=== PATIENT | female | born 1950 | race Caucasian/White ===

== ENCOUNTER → 2017-07-25 | Day surgery (SDC) | payer MEDICARE, BC ==
[2017-07-22 13:35] LABS: BASOPHILS # (AUTO) 0.1 (0.0-0.1); BASOPHILS % 0.5 % (0.0-1.0); EOSINOPHILS # (AUTO) 0.3 (0.0-0.4); EOSINOPHILS % 2.8 % (0.0-6.0); HEMATOCRIT 48.3 % (34.2-44.1); HEMOGLOBIN 15.6 g/dL (12.0-16.0); LYMPHOCYTES # (AUTO) 2.6 (1.0-3.2); LYMPHOCYTES % 27.9 % (18.0-39.1); MEAN CORPUSCULAR HEMOGLOBIN 31.5 pg (28-32); MEAN CORPUSCULAR HGB CONC 32.3 g/dL (31-35); MEAN CORPUSCULAR VOLUME 97.6 fL (81-99); MONOCYTES # (AUTO) 0.6 (0.2-0.8); MONOCYTES % 6.2 % (4.4-11.3); NEUTROPHILS # (AUTO) 5.8 (2.1-6.9); NEUTROPHILS % 62.5 % (38.7-80.0); PLATELET COUNT 193 x10e3/uL (140-360); RED BLOOD COUNT 4.95 x10e6/uL (3.6-5.1); RED CELL DISTRIBUTION WIDTH 13.2 % (11.7-14.4)
[~2017-07-25] MED LIST: ALBUTEROL0.63 MG/3 NEB; AMLODIPINE BES2.5 MG PO; ASPIRIN81 MG PO; BUTALB-ACETAMI1 EACH PO; CLONAZEPAM0.5 MG PO; DIAZEPAM5 MG PO; FENTANYL CITRATE/PF 100MCG/2 ML INJ ONE; FIORICET1 EA PO; GABAPENTIN300 MG PO; GLIPIZIDE5 MG PO; GLUCAGON FOR INJ 1 MG VIAL ONE; GLUCOPHAGE1000 MG PO; HYDROCODONE-AP1 EAC1 PO; HYOSCYAMINE SULFATE 0.5 MG/ML AMP ONE; HYOSCYAMINE0.125 MG PO; LEXAPRO10 MG PO; LIDOCAINE HCL 2% LOCAL INJ 5 ML SDV VIAL INJ ONE; LIPITOR20 MG PO; LORAZEPAM0.5 GM PO; LORAZEPAM0.5 MG PO; LOSARTAN POTAS100 MG PO; LYRICA50 MG PO; MELOXICAM7.5 MG PO; METFORMIN HCL1000 MG PO; METOPROLOL TART25 MG PO; MIDAZOLAM HCL 2 MG/2 ML VIAL ONE; NAPROSYN500 MG PO; NEXIUM20 MG PO; NORCO 5-325 TA1 EACH PO; ONDANSETRON HCL INJ 2 MG/ML VIAL ONE; PANTOPRAZOLE SO40 MG PO; PENNSAID 2%; PENNSAID TOP; PLAVIX75 MG PO; PROAIR HFA INH8.5 GM INH; PROPOFOL IV EMULSION 10 MG/ML 50 ML VIAL ONE; SERTRALINE HCL25 MG PO; SIMVASTATIN20 MG PO; SPIRIVA HANDIH18 MCG INH; SPIRIVA18 MCG INH; SYMBICORT 160-4.6 GM IH; SYMBICORT 16010.2 GM; TYLENOL WITH C1 EACH PO; ULTRAM 50MG50 MG PO; ULTRAM50 MG PO; Z.0.JANUVIA100 MG PO; Z.0.NORVASC2.5 MG PO; ZOLOFT25 MG PO; farxiga PO
--- NOTE | 2017-07-26 03:51 | Operative Report ---
DATE OF PROCEDURE: July 25, 2017 REFERRING PHYSICIAN: Dr. Van Toussaint and Dr. Luz Elena Lala. PROCEDURES PERFORMED 1. Esophagogastroduodenoscopy with esophageal dilatation. 2. Colonoscopy with polypectomy. INDICATIONS FOR EGD: Dysphagia. INDICATIONS FOR COLONOSCOPY: Colorectal cancer screening and personal history of colon polyps. MEDICATION: Patient was done under MAC. Please see anesthesiologist's note. PROCEDURE: With the patient in the left lateral decubitus position, the flexible fiberoptic Olympus gastroscope was introduced into the esophagus under direct visualization without any difficulty. The esophagus appeared to be within normal limits. There was a mild stricture noted at the GE junction that was dilated to size 52-Romansh King. The scope was then advanced with ease into the stomach traversing a small hiatal hernia. Mucosa overlying the antrum revealed some patchy areas of ?atrophy and biopsies were obtained to rule out atrophic gastritis. The mucosa overlying the antrum and the body revealed some diffuse erythema and low-grade to moderate edema, and biopsies were obtained and sent to stain for H. pylori. The pylorus was of normal contour and shape. It was intubated with ease. The scope was advanced all the way to the 2nd portion of the duodenum. A prominent fold was encountered in the proximal 2nd portion that was biopsied. There was also approximately a 5 mm polypoid lesion in the duodenal bulb and that was biopsied. The scope was then withdrawn back into the stomach and retroflexed. Mucosa overlying the fundus appeared to be within normal limits. The previously described hiatal hernia was also noted in the retroflexed position. The scope was then straightened out. The stomach was decompressed. The scope was subsequently withdrawn. Patient tolerated the procedure well. IMPRESSION 1. Normal esophagus. 2. Mild stricture at the gastroesophageal junction dilated to a size 52-Romansh King. 3. Small hiatal hernia. 4. Gastritis, type B, biopsied. Biopsy sent to stain for Helicobacter pylori. 5. Rule out atrophic gastritis, antrum, biopsied. 6. Duodenal bulb polypoid lesion approximately 5 mm in size, biopsied. 7. Prominent fold in proximal 2nd portion, biopsied. PLAN: Follow up histology. Continue Protonix 40 mg 1 p.o. q.a.m. a.c. Patient was then turned around. After adequate lubrication of the anal canal, a flexible fiberoptic Olympus colonoscope was inserted into the rectum with ease. It could not be advanced beyond the 20 cm from the anal verge. There was a very sharp angulation noted in the distal sigmoid colon. The scope was then withdrawn. The gastroscope was then inserted into the rectum, and with some gentle pressure we were to negotiate the sharply angulated area. The scope was advanced all the way to the hepatic flexure. Part of the ascending colon was visualized, but the proximal ascending and the cecum could not be visualized due to excessive looping of the scope in the left colon. Diverticular disease was noted pretty much throughout. The scope was then withdrawn slowly, and an approximately 6 mm sessile polyp was snared from the transverse colon. There was some retained stool, but visualization was fair in the part of the colon visualized. The descending colon other than for diverticular disease grossly appeared to be within normal limits. Approximately 6 polyps were snared and 6 polyps were hot biopsied from the sigmoid colon, and approximately 8 polyps were hot biopsied from the rectum. The scope was then retroflexed into the distal rectum and small internal hemorrhoids were noted, none of which was actively bleeding. The scope was then straightened out. The rectosigmoid area, as well as the distal rectal area were decompressed. The scope was subsequently withdrawn. Patient tolerated the procedure well. IMPRESSION 1. Sharply angulated distal sigmoid colon negotiated only with esophagogastroduodenoscopy scope. The scope could not be advanced beyond the hepatic flexure due to excessive looping of the scope proximally. 2. [place] diverticulosis. 3. Transverse colon polyps, snared. 4. Sigmoid colon polyp, times 12, six snared and 6 hot biopsied. 5. Rectal polyps times 8, hot biopsied. 6. Internal hemorrhoids, none actively bleeding. PLAN: Follow up histology. Initiate high-fiber supplement. Patient will need an air contrast barium enema in approximately 1month to visualize the ascending colon and cecum. Also, followup colonoscopy pending pathology and air contrast barium enema report. Job#: [id number] RI cc:DO LUZ ELENA RODRIGUES MD
== END | disposition home or self-care (01) ==
LOC: OR 06:00
PROVIDERS: ATTEND Internal Medicine Gastroenterology
DX: Z12.11 Encounter for screening for malignant neoplasm of colon (principal); D12.8 Benign neoplasm of rectum; K63.5 Polyp of colon; K31.7 Polyp of stomach and duodenum; K29.50 Unspecified chronic gastritis without bleeding; K22.2 Esophageal obstruction; K44.9 Diaphragmatic hernia without obstruction or gangrene; K31.89 Other diseases of stomach and duodenum; K57.30 Diverticulosis of large intestine without perforation or abscess without bleeding; K59.00 Constipation, unspecified; K64.8 Other hemorrhoids; E11.9 Type 2 diabetes mellitus without complications; G62.9 Polyneuropathy, unspecified; J44.9 Chronic obstructive pulmonary disease, unspecified; I10 Essential (primary) hypertension; I25.10 Atherosclerotic heart disease of native coronary artery without angina pectoris; K21.9 Gastro-esophageal reflux disease without esophagitis; G89.29 Other chronic pain; F41.9 Anxiety disorder, unspecified; F17.210 Nicotine dependence, cigarettes, uncomplicated; Z01.810 Encounter for preprocedural cardiovascular examination; Z01.812 Encounter for preprocedural laboratory examination; Z79.02 Long term (current) use of antithrombotics/antiplatelets; Z95.5 Presence of coronary angioplasty implant and graft; Z85.51 Personal history of malignant neoplasm of bladder; Z86.73 Personal history of transient ischemic attack (TIA), and cerebral infarction without residual deficits
CPT/HCPCS: 36415 ×2; 43239; 43450; 45384; 45385; 82948; 84443; 85025; 88305; 88312; 93005; J1610; J1980; J2001; J2250; J2405

== ENCOUNTER → 2017-08-21 | Outpatient (CLI) | payer MEDICARE, BC ==
[~2017-08-21] MED LIST changes: -FENTANYL CITRATE/PF 100MCG/2 ML INJ ONE; -GLUCAGON FOR INJ 1 MG VIAL ONE; -HYOSCYAMINE SULFATE 0.5 MG/ML AMP ONE; -LIDOCAINE HCL 2% LOCAL INJ 5 ML SDV VIAL INJ ONE; -MIDAZOLAM HCL 2 MG/2 ML VIAL ONE; -ONDANSETRON HCL INJ 2 MG/ML VIAL ONE; -PROPOFOL IV EMULSION 10 MG/ML 50 ML VIAL ONE
--- NOTE | 2017-08-21 11:57 | Diagnostic Imaging Report ---
PROCEDURE: X-RAY BARIUM ENEMA WITH AIR CONTRAST COMPARISON: None. INDICATIONS: COLON POLYPS/INCOMPLETE COLONOSCOPY TECHNIQUE: Business Administrator film was obtained. Barium was introduced via a rectal tube in a retrograde fashion until contrast was noted to reach the cecum. Air was then introduced to fully inflate the colon. Multiple spot images as well as overhead and bilateral decubitus images were obtained. FINDINGS: The clinical liaison film demonstrates no acute abnormalities. Two separate focal filling defects are noted in the mid transverse colon. The filling defects persisted on multiple projections throughout the upright and supine positions. The filling defects were not visualized on the overhead images. Otherwise, there is no evidence of obstruction or mass. The appendix is visualized. Numerous diverticuli are present in the descending and sigmoid colon. No extravasation. CONCLUSION: 1. Filling defects in the mid transverse colon are indeterminate. Correlation with colonoscopy results may provide additional information. CT of the abdomen and pelvis with IV and oral contrast may be of clinical benefit. 2. Diverticulosis. Dictated by: Miles Alicea M.D. on 08/21/2017 at 12:06 Electronically approved by: Miles Alicea M.D. on 08/21/2017 at 12:06
== END ==
LOC: DX 07:51
PROVIDERS: ATTEND Internal Medicine Gastroenterology
DX: K63.5 Polyp of colon (principal)
CPT/HCPCS: 74280

== ENCOUNTER 2018-04-27 10:00 | Observation (INO) | payer MEDICARE, BC ==
[~2018-04-27] VITALS: Ht 154.9 cm; Wt 69.6 kg
[2018-04-27] MEDS ORDERED: IPRATROPIUM BROMIDE 0.02% 2.5 ML NEB NEB STA (10:04)
[2018-04-27] MEDS ORDERED: ONDANSETRON HCL INJ 2 MG/ML VIAL IV STA (10:04)
[2018-04-27] MEDS ORDERED: ALBUTEROL SULF 0.083% NEB SOLN 3 ML NEB NEB STA (10:04)
[2018-04-27] MEDS ORDERED: MORPHINE SULFATE INJ 4 MG/ML INJ IV STA (10:04)
[2018-04-27] MEDS ORDERED: METHYLPREDNISOLONE SOD SUCC 125 MG/2ML VIAL IV STA (10:04)
[2018-04-27] MEDS ORDERED: SODIUM CHLORIDE 0.9% 1000ML 1,000 ML IV STA (10:04)
[2018-04-27] MEDS ORDERED: ASPIRIN 81 MG CHEW TAB PO ONE (10:15)
[2018-04-27 10:43] LABS: BASOPHILS # (AUTO) 0.1 (0.0-0.1); BASOPHILS % 0.6 % (0.0-1.0); EOSINOPHILS # (AUTO) 0.2 (0.0-0.4); EOSINOPHILS % 1.9 % (0.0-6.0); HEMATOCRIT 37.7 % (34.2-44.1); HEMOGLOBIN 11.7 g/dL (12.0-16.0); LYMPHOCYTES # (AUTO) 3.5 (1.0-3.2); LYMPHOCYTES % 35.1 % (18.0-39.1); MEAN CORPUSCULAR HEMOGLOBIN 27.2 pg (28-32); MEAN CORPUSCULAR VOLUME 87.7 fL (81-99); MONOCYTES # (AUTO) 0.7 (0.2-0.8); MONOCYTES % 6.9 % (4.4-11.3); NEUTROPHILS # (AUTO) 5.4 (2.1-6.9); NEUTROPHILS % 55.1 % (38.7-80.0); PLATELET COUNT 270 x10e3/uL (140-360); RED CELL DISTRIBUTION WIDTH 15.3 % (11.7-14.4)
[2018-04-27 10:48] LABS: INR 0.84; PROTHROMBIN TIME 12.3 seconds (11.9-14.5)
[2018-04-27 10:49] LABS: PARTIAL THROMBOPLASTIN TIME 26.5 seconds (23.8-35.5)
[2018-04-27 11:04] LABS: ALANINE AMINOTRANSFERASE 27 IU/L (0-55); ALBUMIN 3.7 g/dL (3.5-5.0); ALBUMIN/GLOBULIN RATIO 1.1 (0.8-2.0); ALKALINE PHOSPHATASE 72 IU/L (40-150); ANION GAP 15.2 mmol/L (8-16); BLOOD UREA NITROGEN 8 mg/dL (7-26); BUN/CREATININE RATIO 11 (6-25); CARBON DIOXIDE 25 mmol/L (22-29); CHLORIDE 101 mmol/L (98-107); CREATINE KINASE 107 IU/L (29-168); CREATININE, SERUM 0.75 mg/dL (0.57-1.11); EST GLOMERULAR FILTRATION RATE > 60 ML/MIN (60-); GLUCOSE 218 mg/dL (74-118); LIPASE 27 U/L (8-78); MAGNESIUM 2.3 MG/DL (1.3-2.1); POTASSIUM 4.2 mmol/L (3.5-5.1); SODIUM 137 mmol/L (136-145)
[2018-04-27 11:08] LABS: B-TYPE NATRIURETIC PEPTIDE2 13.2 pg/mL (0-100)
[2018-04-27 11:12] LABS: THYROID STIMULATING HORMONE 2.003 uIU/mL (0.350-4.940)
[2018-04-27 11:30] LABS: BILIRUBIN,URINE NEGATIVE (NEGATIVE); CLARITY,URINE CLEAR (CLEAR); COLOR,URINE YELLOW (YELLOW); KETONES,URINE NEGATIVE (NEGATIVE); LEUKOCYTE ESTERASE ,URINE NEGATIVE (NEGATIVE); NITRITE,URINE NEGATIVE (NEGATIVE); PROTEIN,URINE DIPSTICK NEGATIVE (NEGATIVE); URINE UROBILINOGEN 0.2 mg/dL (0.2 - 1)
[2018-04-27 11:33] LABS: EPITHELIAL CELLS,URINE RARE /LPF; YEAST,URINE MODERATE
[2018-04-27] MEDS ORDERED: SODIUM CHLORIDE 0.9% 50ML 50 ML ONE (13:51)
[2018-04-27] MEDS ORDERED: IOPAMIDOL 370 MG/ML 200 ML INFUS..BTL INJ ONE (13:52)
--- NOTE | 2018-04-27 13:54 | Diagnostic Imaging Report ---
EXAMINATION: CHEST 2 VIEWS INDICATION: Abdominal pain. Chest pain. COMPARISON: November 27, 2014 FINDINGS: TUBES and LINES: None. LUNGS: Lungs are well inflated. Mild chronic appearing changes in the lungs. There is no evidence of pneumonia or pulmonary edema. PLEURA: No pleural effusion or pneumothorax. HEART AND MEDIASTINUM: The cardiomediastinal silhouette is unremarkable. BONES AND SOFT TISSUES: No acute osseous lesion. Soft tissues are unremarkable. UPPER ABDOMEN: No free air under the diaphragm. IMPRESSION: No acute thoracic abnormality. Signed by: Dr. Javier Hernandez M.D. on 04/27/2018 1:50 PM
--- NOTE | 2018-04-27 14:04 | Diagnostic Imaging Report ---
EXAM: CT Abdomen and Pelvis WITH contrast INDICATION: Abdominal pain. Right upper quadrant pain. COMPARISON: None. TECHNIQUE: Abdomen and pelvis were scanned utilizing a multidetector helical scanner from the lung base to the pubic symphysis after administration of IV contrast. Coronal and sagittal reformations were obtained. Routine protocol was performed. Scan was performed when during portal venous phase. IV CONTRAST: 100 mL of Isovue-370 ORAL CONTRAST: Water RADIATION DOSE: Total DLP: ... mGy*cm Estimated effective dose: (DLP x 0.015 x size factor) mSv COMPLICATIONS: None FINDINGS: LINES and TUBES: None. LOWER THORAX: Mild scarring/atelectasis at the lung bases. HEPATOBILIARY: Several too small to characterize hypodensities scattered throughout the liver most likely due to small cysts. 3.0 cm bilobed cyst best seen on image 17 series 2. 1.6 cm cyst in the posterior right lobe best seen on series 2 image 20. Fatty infiltration of the liver. No biliary ductal dilatation. GALLBLADDER: Surgically absent prominent common bile duct likely due to reservoir effect from cholecystectomy. SPLEEN: No splenomegaly. PANCREAS: No focal masses or ductal dilatation. ADRENALS: No adrenal nodules KIDNEYS/URETERS: Kidneys enhance symmetrically. No hydronephrosis. Small hypodensities in the kidneys most likely due to small cysts. No stones. GI TRACT: No abnormal distention, wall thickening, or evidence of bowel obstruction. Scattered diverticulosis without evidence of diverticulitis. No inflammatory changes are seen in the right lower abdomen to suggest appendicitis. PELVIC ORGANS/BLADDER: Unremarkable. LYMPH NODES: No lymphadenopathy. VESSELS: Scattered vascular calcifications. PERITONEUM / RETROPERITONEUM: No free air or fluid. BONES: Unremarkable. SOFT TISSUES: Unremarkable. IMPRESSION: 1. Scattered diverticulosis without evidence of diverticulitis. 2. Likely small cysts in the kidneys and liver. Signed by: Dr. Javier Hernandez M.D. on 04/27/2018 2:01 PM
[2018-04-27] MEDS ORDERED: DEXTROSE 50% SYRINGE 50 ML IV PRN (15:15)
[2018-04-27] MEDS: SODIUM CHLORIDE 0.9% 1000ML 1,000 ML IV SCH ×2 (16:25→19:50)
[2018-04-27] MEDS: INSULIN REGULAR, HUMAN 100 UNIT/1 ML 3ML VIAL SQ SCH ×2 (16:30→19:47)
[2018-04-27] MEDS: ONDANSETRON HCL INJ 2 MG/ML VIAL IV PRN (19:06)
[2018-04-27] MEDS: MORPHINE SULFATE 2 MG/ML SYR IV PRN (19:06)
[2018-04-27 20:00] VITALS: BP 110/55
[2018-04-27 22:25] VITALS: BP 110/55
[2018-04-27 22:30] VITALS: BP 110/55
[2018-04-28] VITALS: BP 122/58
[2018-04-28] MEDS: MORPHINE SULFATE 2 MG/ML SYR IV PRN ×3 (00:34→10:35)
[2018-04-28] MEDS: ONDANSETRON HCL INJ 2 MG/ML VIAL IV PRN ×3 (00:34→10:35)
[2018-04-28 04:00] VITALS: BP 111/57
[2018-04-28 05:02] LABS: BASOPHILS % 0.1 % (0.0-1.0); HEMATOCRIT 33.7 % (34.2-44.1); HEMOGLOBIN 10.3 g/dL (12.0-16.0); LYMPHOCYTES # (AUTO) 1.3 (1.0-3.2); MEAN CORPUSCULAR HEMOGLOBIN 27.2 pg (28-32); MEAN CORPUSCULAR HGB CONC 30.6 g/dL (31-35); MEAN CORPUSCULAR VOLUME 88.9 fL (81-99); MONOCYTES # (AUTO) 0.7 (0.2-0.8); MONOCYTES % 4.4 % (4.4-11.3); NEUTROPHILS # (AUTO) 14.3 (2.1-6.9); NEUTROPHILS % 86.5 % (38.7-80.0); PLATELET COUNT 241 x10e3/uL (140-360); RED BLOOD COUNT 3.79 x10e6/uL (3.6-5.1); RED CELL DISTRIBUTION WIDTH 15.2 % (11.7-14.4)
[2018-04-28 05:26] LABS: ALANINE AMINOTRANSFERASE 27 IU/L (0-55); ALBUMIN 3.2 g/dL (3.5-5.0); ALBUMIN/GLOBULIN RATIO 1.1 (0.8-2.0); ALKALINE PHOSPHATASE 65 IU/L (40-150); ANION GAP 13.5 mmol/L (8-16); BLOOD UREA NITROGEN 10 mg/dL (7-26); BUN/CREATININE RATIO 17 (6-25); CALCIUM 8.6 mg/dL (8.4-10.2); CARBON DIOXIDE 24 mmol/L (22-29); CHLORIDE 106 mmol/L (98-107); CREATININE, SERUM 0.58 mg/dL (0.57-1.11); EST GLOMERULAR FILTRATION RATE > 60 ML/MIN (60-); GLUCOSE 130 mg/dL (74-118); POTASSIUM 4.5 mmol/L (3.5-5.1); SODIUM 139 mmol/L (136-145)
[2018-04-28 07:30] VITALS: BP 123/59
[2018-04-28] MEDS: INSULIN REGULAR, HUMAN 100 UNIT/1 ML 3ML VIAL SQ SCH ×3 (07:30→16:26)
[2018-04-28] MEDS: PANTOPRAZOLE 40 MG 10ML VIAL IV SCH ×2 (09:00→10:15)
[2018-04-28 09:24] VITALS: BP 123/59
--- NOTE | 2018-04-28 10:03 | Operative Report ---
DATE OF PROCEDURE: April 28, 2018 REFERRING PHYSICIAN: Dr. Van Nolasco PROCEDURE PERFORMED: Esophagogastroduodenoscopy with biopsies. INDICATIONS FOR EGD: Upper abdominal pain. MEDICATION: Patient was done under MAC. Please see anesthesiologist's note. PROCEDURE: With the patient in the left lateral decubitus position, the flexible fiberoptic Olympus gastroscope was introduced into the esophagus under direct visualization without any difficulty. The esophagus appeared to be within normal limits. The scope was then advanced with ease into the stomach, traversing a small sliding hiatal hernia. Mucosa overlying the antrum and the body revealed some patchy erythema and moderate edema, and biopsies were obtained and sent to stain for H. pylori. Pylorus appeared to be of normal contour and shape. It was intubated with ease, and the scope was advanced all the way to the 2nd portion of the duodenum. The scope was then withdrawn slowly. Mucosa overlying the proximal 2nd portion and the duodenal bulb appeared to be within normal limits. The scope was then withdrawn back into the stomach and retroflexed. Mucosa overlying the fundus and the cardia appeared to be within normal limits. The scope was then straightened out. The stomach was decompressed. The scope was subsequently withdrawn. Patient tolerated the procedure well. IMPRESSION 1. Normal esophagus. 2. Small sliding hiatal hernia. 3. Gastritis, biopsied. Biopsies sent to stain for H. pylori. PLAN: Follow up histology. Continue current therapy. Add Carafate 1 gram p.o. a.c. t.i.d. and nightly. Job#: [id number] cc:DANIELA NOLASCO DO
[2018-04-28 11:11] VITALS: BP 123/57
[2018-04-28] MEDS: SODIUM CHLORIDE 0.9% 1000ML 1,000 ML IV SCH (13:55)
[2018-04-28 15:12] VITALS: BP 112/56
[2018-04-28] MEDS ORDERED: LIDOCAINE HCL 2% LOCAL INJ 5 ML SDV VIAL INJ ONE (19:09)
[2018-04-28] MEDS ORDERED: PROPOFOL IV EMULSION 10 MG/ML 50 ML VIAL ONE (19:09)
== END 2018-04-28 18:36 | disposition home or self-care (01) ==
LOC: ER 10:00 → ERHOLD 15:19 → IMCU 18:22
DX: K29.70 Gastritis, unspecified, without bleeding (principal); K44.9 Diaphragmatic hernia without obstruction or gangrene; E11.9 Type 2 diabetes mellitus without complications; Z86.73 Personal history of transient ischemic attack (TIA), and cerebral infarction without residual deficits; K57.30 Diverticulosis of large intestine without perforation or abscess without bleeding; Z85.51 Personal history of malignant neoplasm of bladder; M81.0 Age-related osteoporosis without current pathological fracture; Z88.1 Allergy status to other antibiotic agents; Z88.7 Allergy status to serum and vaccine; K21.9 Gastro-esophageal reflux disease without esophagitis; J44.9 Chronic obstructive pulmonary disease, unspecified
CPT/HCPCS: 36415 ×2; 43239; 71046; 74177; 80053 ×2; 81001; 82550; 82553; 82948 ×2; 83605; 83690; 83735; 83880; 84443; 84484; 85025 ×2; 85610; 85730; 87040; 87086; 87400; 88305; 88312; 93005; 97116; 97161; 99284; G0378 ×2; G8978; G8979; J2001; J2270 ×3; J2405 ×2; J2930; J7030; Q9967

== ENCOUNTER 2018-05-24 12:22 | Observation (INO) | payer MEDICARE, BC ==
[~2018-05-24] VITALS: Ht 154.9 cm; Wt 62.1 kg
[2018-05-24 12:30] VITALS: BP 120/56
[2018-05-24 12:45] VITALS: BP 120/56
[2018-05-24] MEDS ORDERED: ALBUTEROL SULF 0.083% NEB SOLN 3 ML NEB NEB PRN (13:00)
[2018-05-24 13:22] LABS: ABG HCO3 28 mmol/L (23-28); ABG PCO2 50 mmHg (41-51); ABG PH 7.35 (7.31-7.41); ABG PO2 90 mmHg (80-105)
[2018-05-24 13:25] VITALS: BP 120/56
[2018-05-24 14:07] LABS: BASOPHILS # (AUTO) 0.1 (0.0-0.1); BASOPHILS % 0.4 % (0.0-1.0); EOSINOPHILS # (AUTO) 0.1 (0.0-0.4); EOSINOPHILS % 0.7 % (0.0-6.0); HEMATOCRIT 37.5 % (34.2-44.1); HEMOGLOBIN 11.3 g/dL (12.0-16.0); LYMPHOCYTES # (AUTO) 1.2 (1.0-3.2); LYMPHOCYTES % 10.2 % (18.0-39.1); MEAN CORPUSCULAR HEMOGLOBIN 25.6 pg (28-32); MEAN CORPUSCULAR HGB CONC 30.1 g/dL (31-35); MONOCYTES # (AUTO) 0.3 (0.2-0.8); MONOCYTES % 2.1 % (4.4-11.3); NEUTROPHILS # (AUTO) 10.2 (2.1-6.9); PLATELET COUNT 273 x10e3/uL (140-360); RED BLOOD COUNT 4.41 x10e6/uL (3.6-5.1); RED CELL DISTRIBUTION WIDTH 15.5 % (11.7-14.4)
[2018-05-24 14:20] LABS: ALANINE AMINOTRANSFERASE 19 IU/L (0-55); ALBUMIN 3.5 g/dL (3.5-5.0); ALBUMIN/GLOBULIN RATIO 1.1 (0.8-2.0); ALKALINE PHOSPHATASE 65 IU/L (40-150); ANION GAP 12.3 mmol/L (8-16); BLOOD UREA NITROGEN 11 mg/dL (7-26); BUN/CREATININE RATIO 16 (6-25); CALCIUM 8.9 mg/dL (8.4-10.2); CARBON DIOXIDE 27 mmol/L (22-29); CHLORIDE 102 mmol/L (98-107); EST GLOMERULAR FILTRATION RATE > 60 ML/MIN (60-); GLUCOSE 266 mg/dL (74-118); POTASSIUM 4.3 mmol/L (3.5-5.1); SODIUM 137 mmol/L (136-145)
[2018-05-24] MEDS: SODIUM CHLORIDE 0.9% 1000ML 1,000 ML IV SCH ×2 (14:30→23:00)
[2018-05-24 14:46] LABS: FREE THYROXINE INDEX 2.1198 (1.4-3.8)
[2018-05-24] MEDS: GABAPENTIN 300 MG CAP PO SCH ×2 (14:53→21:25)
--- NOTE | 2018-05-24 15:25 | Diagnostic Imaging Report ---
EXAMINATION: CHEST 2 VIEWS INDICATION: COPD/SOB COMPARISON: Chest radiograph 04/27/2018. FINDINGS: The patient is rotated. TUBES and LINES: None. LUNGS: The lungs are hyperinflated. There is no evidence of pneumonia or pulmonary edema. PLEURA: No pleural effusion or pneumothorax. Slight nonspecific elevation of the right hemidiaphragm. HEART AND MEDIASTINUM: The cardiomediastinal silhouette is unremarkable. BONES AND SOFT TISSUES: No acute osseous lesion. Soft tissues are unremarkable. Degenerative changes of the visualized spine. Diffuse osteopenia. UPPER ABDOMEN: No free air under the diaphragm. IMPRESSION: Emphysematous changes of the lungs without evidence of pneumonia or pulmonary edema. Signed by: Dr. Dilcia Hernandez MD on 05/24/2018 3:21 PM
[2018-05-24] MEDS ORDERED: DEXTROSE 50% SYRINGE 50 ML IV PRN (15:45)
[2018-05-24] MEDS ORDERED: HYDROCODONE/APAP 5MG-325MG TAB PO PRN (15:45)
[2018-05-24] MEDS ORDERED: ALBUTEROL SULFATE HFA 8GM INHALATION AEROSOL INH PRN (15:45)
[2018-05-24] MEDS ORDERED: AZITHROMYCIN 500MG/NS 250 ML 250 ML IV SCH (15:45)
[2018-05-24] MEDS ORDERED: CLONAZEPAM 0.5 MG TAB PO PRN (15:45)
[2018-05-24 16:00] VITALS: BP 116/55
[2018-05-24] MEDS: AZITHROMYCIN 500MG/NS 250 ML 250 ML IV SCH (16:48)
[2018-05-24] MEDS: INSULIN REGULAR, HUMAN 100 UNIT/1 ML 3ML VIAL SQ SCH ×2 (16:48→21:39)
--- NOTE | 2018-05-24 16:54 | Diagnostic Imaging Report ---
Exam: Head CT without contrast Indication: Sleepiness Comparison: Head CT 08/04/2016 Technique: Axial images were obtained from the skull base to the vertex. Coronal and sagittal images reconstructed from the axial data. Dose modulation, iterative reconstruction, and/or weight based adjustment of the mA/kV was utilized to reduce the radiation dose to as low as reasonably achievable. Intravenous contrast: None Findings: Scalp/skull: No abnormalities. Extra-axial spaces: No masses. No fluid collections. Brain sulci: Mildly prominent. Ventricles: Mild compensatory dilatation. No hydrocephalus. Parenchyma: Describe hypodensities in the supratentorial white matter are small vessel ischemic changes. No masses, hemorrhage, acute or chronic cortical vascular insults. Sellar/suprasellar region: No abnormalities. Craniocervical junction: Patent foramen magnum. No Chiari one malformation. Incidental findings: Atherosclerotic calcifications in the carotid siphons. Impression: 1. No acute abnormalities. 2. No changes when compared to head CT dated 08/14/2016. 3. Mild supratentorial chronic microvascular ischemic changes. A preliminary report was provided by Dr. Schneider on 05/24/2018 4:54 PM. Signed by: Dr. Fermín Washburn M.D. on 05/24/2018 4:57 PM
[2018-05-24] MEDS: ATORVASTATIN 20 MG TAB PO SCH (21:25)
[2018-05-24 22:24] VITALS: BP 119/58
[2018-05-24 22:25] VITALS: BP 119/58
[2018-05-25] VITALS (9 sets, daily range): BP systolic 116–139; BP diastolic 56–65
[2018-05-25] MEDS ORDERED: TIOTROPIUM 18 MCG INH POWDER INH SCH (06:00)
[2018-05-25] MEDS: INSULIN REGULAR, HUMAN 100 UNIT/1 ML 3ML VIAL SQ SCH ×4 (07:30→20:47)
--- NOTE | 2018-05-25 08:41 | History and Physical ---
CHIEF COMPLAINT: Somnolence, difficulty being aroused and decreased responsiveness. HISTORY OF PRESENT ILLNESS: Patient is a 68-year-old woman. She has a history of diabetes and COPD. She recently had an endoscopy done by Dr. Yves Chatman, and was started on some proton pump inhibitors. She has been using pain medication at home through Dr. Barrios for chronic pain in her thoracic region and lower back. She also has benzodiazepines that she uses for anxiety. Last week she came to the office complaining of worsening dyspnea and congestion. She received prednisone 20 mg p.o. daily for 5 days along with antibiotics. She returned to the office yesterday. She was less congested, but was very somnolent. Her and I had trouble waking her up. We arranged for an observation bed at the hospital, but she was unable to get into the car. The rescue squad was called and transported her to the hospital. Last night she received IV fluids along with antibiotics and laboratory testing. She is more awake this morning, although she still feels sleepy and weak. She does not complain of dyspnea apart from her usual dyspnea on exertion. She has a small amount of congestion and mild cough. PAST MEDICAL HISTORY 1. Diabetes. 2. Chronic pain in the thoracic area and lower back. 3. COPD. PAST SURGICAL HISTORY 1. Status post cholecystectomy. 2. Status post hysterectomy. 3. Status post recent endoscopy. ALLERGIES: THE PATIENT IS ALLERGIC TO [place] AND CELEBREX. FAMILY HISTORY: Her father had diabetes and coronary artery disease. She also has siblings with coronary artery disease. REVIEW OF SYSTEMS: She is afebrile. She has no headache or neck pain. She does not have any throat pain. She has no chest pain. She has no abdominal pain. She has mild dyspnea with exertion, which is her baseline. She also has mild congestion and cough. She does not complain of any nausea or vomiting. She has no leg edema or calf tenderness. She has no focal neurological problems. PHYSICAL EXAMINATION VITALS: The patient is afebrile. The blood pressure is 124/61 on her regular medications. Her pulse ox is 96% on 3 L. Heart rate is 67. HEENT: Shows no facial swelling or erythema. Nasal mucosa is normal. The oropharynx is normal. LYMPHATIC: Shows no submandibular, cervical or supraclavicular adenopathy. CARDIAC: Reveals a regular rate and rhythm with normal S1 and S2. There are no murmurs or rubs. LUNGS: Auscultation of the lungs reveals a few rhonchi in both lung hdez. ABDOMEN: Soft and nontender. There is no rebound or guarding. EXTREMITIES: Shows no leg edema or calf tenderness. There is no cyanosis or clubbing. SKIN: Shows no rashes. NEUROLOGIC: Shows no focal abnormalities. LABORATORY DATA: The white blood cell count is 11.8 and hemoglobin is 11.3. The platelet count is 273,000. The BUN to creatinine ratio is normal. The blood sugars have been in the 120-280 range. RADIOGRAPHIC DATA: The CT scan of the head shows no acute abnormalities. Chest x-ray shows hyperinflation consistent with COPD. IMPRESSION 1. Transient alteration in consciousness. 2. Chronic obstructive pulmonary disease with acute exacerbation. 3. Chronic pain requiring treatment with [place]. 4. Anxiety disorder requiring treatment with benzodiazepines. 5. Diabetes. PLAN 1. Hold [place] and benzodiazepines. 2. IV antibiotics. 3. Oxygen. 4. Bronchodilators. 5. IV hydration. 6. Monitor blood sugars and treat as needed. Job#: [id number] MI
[2018-05-25] MEDS ORDERED: CLOPIDOGREL BISULFATE 75 MG TAB PO SCH (09:00)
[2018-05-25] MEDS ORDERED: ESCITALOPRAM OXALATE 10 MG TAB PO SCH (09:00)
[2018-05-25] MEDS: ASPIRIN 81 MG CHEW TAB PO SCH (09:13)
[2018-05-25] MEDS: ESCITALOPRAM OXALATE 10 MG TAB PO SCH (09:13)
[2018-05-25] MEDS: CLOPIDOGREL BISULFATE 75 MG TAB PO SCH (09:13)
[2018-05-25] MEDS: GLIPIZIDE 5 MG TAB PO SCH (09:13)
[2018-05-25] MEDS: PANTOPRAZOLE SOD 40 MG TABEC PO SCH (09:13)
[2018-05-25] MEDS: GABAPENTIN 300 MG CAP PO SCH ×3 (09:13→20:43)
[2018-05-25] MEDS: AZITHROMYCIN 500MG/NS 250 ML 250 ML IV SCH (15:33)
[2018-05-25] MEDS: ATORVASTATIN 20 MG TAB PO SCH (20:43)
[2018-05-26 00:26] VITALS: BP 135/62
[2018-05-26 04:33] VITALS: BP 124/59
[2018-05-26 07:40] VITALS: BP 133/61
[2018-05-26] MEDS: GLIPIZIDE 5 MG TAB PO SCH (08:10)
[2018-05-26] MEDS: CLOPIDOGREL BISULFATE 75 MG TAB PO SCH (08:11)
[2018-05-26] MEDS: PANTOPRAZOLE SOD 40 MG TABEC PO SCH (08:11)
[2018-05-26] MEDS: INSULIN REGULAR, HUMAN 100 UNIT/1 ML 3ML VIAL SQ SCH (08:11)
[2018-05-26] MEDS: ESCITALOPRAM OXALATE 10 MG TAB PO SCH (08:11)
[2018-05-26] MEDS: GABAPENTIN 300 MG CAP PO SCH (08:11)
[2018-05-26] MEDS: ASPIRIN 81 MG CHEW TAB PO SCH (08:11)
[2018-05-26 08:29] VITALS: BP 133/61
--- NOTE | 2018-07-09 14:54 | Discharge Summary ---
DISCHARGE DIAGNOSES 1. Toxic metabolic encephalopathy. 2. Chronic obstructive pulmonary disease. 3. Diabetes. CONSULTING PHYSICIAN: Dr. Bill of neurology. HISTORY OF PRESENT ILLNESS: The patient a 68-year-old woman. She has a history of COPD and diabetes. She has chronic pain and receives pain medications through pain management. She also has some benzodiazepines for anxiety. She came to the office about a week prior to admission complaining of dyspnea and congestion. She received prednisone for 5 days along with antibiotics. She came to the office a week later and was very somnolent. Her and I had difficulty arousing her. She had to be transported to the hospital. HOSPITAL COURSE: The patient was placed on a heart monitor and observed. In retrospect, the was unsure if maybe she had mixed up the benzodiazepines with her other medications, and taking the same medicine multiple times. Benzodiazepines and narcotics were held. She seemed to wake up with this after about 48 hours. She felt much better at the time of discharge. DISPOSITION: The patient will be discharged home. She will follow up with Dr. Jeremie Toussaint, as well as with Dr. Jose. KASSANDRA JOSE MD Job#: [id number] RI cc:JEREMIE TOUSSAINT DO
== END 2018-05-26 09:40 | disposition home or self-care (01) ==
LOC: IMCU 12:25
PROVIDERS: ADMIT Internal Medicine Critical Care Medicine; ATTEND Internal Medicine Critical Care Medicine
DX: G92 Toxic encephalopathy (principal); J44.1 Chronic obstructive pulmonary disease with (acute) exacerbation; E11.9 Type 2 diabetes mellitus without complications; M54.6 Pain in thoracic spine; M54.5 Low back pain; F41.9 Anxiety disorder, unspecified; Z88.8 Allergy status to other drugs, medicaments and biological substances; Z88.1 Allergy status to other antibiotic agents; Z83.3 Family history of diabetes mellitus; Z82.49 Family history of ischemic heart disease and other diseases of the circulatory system; I25.10 Atherosclerotic heart disease of native coronary artery without angina pectoris; Z95.5 Presence of coronary angioplasty implant and graft; Z79.84 Long term (current) use of oral hypoglycemic drugs
CPT/HCPCS: 36415 ×3; 36600; 70450; 71046; 80053; 82805; 82948 ×3; 84436; 84443; 84479; 85025; 96372 ×2; 97116; 97161; G0378 ×3; G8978; G8979; J0456 ×2; J1817; J7030; S0164 ×2

== ENCOUNTER 2019-02-18 12:23 | Inpatient (IN) | payer MEDICARE, BC ==
[~2019-02-18] VITALS: Ht 154.9 cm; Wt 64.0 kg
[~2019-02-18 12:23] MED LIST changes: -farxiga PO; +farxiga SQ
--- OUTSIDE RECORDS SUMMARY | 2019-02-18 12:28 | XMS REPORT | Continuity of Care Document ---
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 Phone [place] Unavailable Unavailable Problems Problem Status Onset Date Classification Date Reported Comments Source PVD Active 04/30/2015 [facility] FALL/ WEAKNESS Active 04/13/2015 [facility] SYNCOPE Active 04/13/2015 [facility] LOWER ABDOMINAL PAIN/BACK PAIN Active 05/20/2013 [facility] RIGHT SIDE PYELONEPHRITIS Active 05/20/2013 [facility] UNK Active 05/09/2013 [facility] DIVERTICULITIS Active 04/01/2003 [facility] Acid reflux Resolved Problem 05/06/2015 [facility] Anxiety depression Active Problem 05/06/2015 [facility] COPD - Chronic obstructive pulmonary disease Active Problem 05/06/2015 [facility] Cough Active Problem 05/06/2015 [facility] Diabetes mellitus Active Problem 05/06/2015 [facility] Diverticulitis Active Problem 05/06/2015 [facility] HTN - Hypertension Active Problem 05/06/2015 [facility] Neuropathy Active Problem 05/06/2015 [facility] Osteoarthritis Active Problem 05/06/2015 [facility] Pneumonia1 Resolved Problem 05/06/2015 last episode 8 yrs ago [facility] SOB - Shortness of breath Active Problem 05/06/2015 [facility] MICROSCOPIC HEMATURIA Active [facility] [employer]UST[facility] BLADDER Active [facility] SYNCOPE AND COLLAPSE Active [facility] Medications Medication Details Route Status Patient Instructions Ordering Provider Order Date Source budesonide-formoterol 160 mcg-4.5 mcg/inh inhalation aerosol with adapter 2 puff, Route: INHALATION, Drug Form: AERO/A, Dosing Weight 67.273, kg, BID, Start date: 04/18/15 14:48:00, Duration: 30 day, Stop date: 05/18/15 9:00:00Notes: (Same as: Symbicort) Inactive 04/18/2015 [facility] Nitroglycerin 0.4 mg, 1 tab, Route: SL, Drug form: TAB, Q5Min, Dosing Weight 63.182, kg, PRN Chest Pain, Start date: 04/18/15 10:06:00, Duration: 3 doses or times, Stop date: Limited # of timesNotes: (Same as:Nitroqu ick, Nitrostat) "Do Not Crush" Sublingual tablet Inactive 04/18/2015 [facility] Metformin 500 mg, 1 tab, Route: PO, Drug form: TAB, Lunch, Dosing Weight 67.273, kg, Start date: 04/17/15 12:00:00, Duration: 30 day, Stop date: 05/16/15 12:00:00Notes: (Same as: Glucophage) Take with meal No Longer Active 04/17/2015 [facility] Ativan 1 mg, Route: IVP, Drug form: INJ, ONCE, Dosing Weight 63.182, kg, PRN Anxiety, Start date: 04/17/15 11:28:00 Inactive 04/17/2015 [facility] Restoril 15 mg, 1 cap, Route: PO, Drug form: CAP, Bedtime, Dosing Weight 63.182, kg, PRN Sleep, Start date: 04/16/15 23:49:00, Duration: 30 day, Stop date: 05/16/15 23:48:00Notes: (Same As: Restoril) No Longer Active 04/17/2015 [facility] Haldol 5 mg, 1 mL, Route: IM, Drug form: INJ, ONCALL, Dosing Weight 63.182, kg, Start date: 04/16/15 13:00:00Notes: (Same as: Haldol) Inactive 04/16/2015 [facility] Ativan 1 mg, 0.5 mL, Route: IV, Drug form: INJ, ONCALL, Dosing Weight 63.182, kg, PRN Other -See Comment, Start date: 04/16/15 12:55:00, Duration: 30 day, Stop date: 05/16/15 12:54:00Notes: (Same as: Ativan) No Longer Active 04/16/2015 [facility] Protonix 40 mg, 1 tab, Route: PO, Drug form: ECTAB, Before Breakfast, Start date: 04/16/15 7:30:00, Duration: 30 day, Stop date: 05/15/15 7:30:00Notes: Tablet should not be chewed or crushed. (Same as: Protonix) No Longer Active 04/16/2015 [facility] atorvastatin 20 mg, 2 tab, Route: PO, Drug form: TAB, Bedtime, Dosing Weight 67.273, kg, Start date: 04/14/15 21:00:00, Duration: 30 day, Stop date: 05/13/15 21:00:00Notes: (Same As: Lipitor) No Longer Active 04/15/2015 [facility] Haldol 5 mg, 1 mL, Route: IM, Drug form: INJ, ONCE, Dosing Weight 63.182, kg, PRN Other -See Comment, Administer prior to MRI/MRA, Start date: 04/14/15 17:45:00, ClaustrophobiaNotes: (Same as: Haldol) No Longer Active 04/14/2015 [facility] Ativan 1 mg, 0.5 mL, Route: IVP, Drug form: INJ, ONCE, Dosing Weight 63.182, kg, PRN Other -See Comment, Administer prior to MRI/MRA, Start date: 04/14/15 17:45:00, ClaustrophobiaNotes: (Same as: Ativan) No Longer Active 04/14/2015 [facility] Ativan 0.5 mg, 0.25 mL, Route: IVP, Drug form: INJ, ONCE, Dosing Weight 63.182, kg, PRN Other -See Comment, At time of MRI if needed, Start date: 04/14/15 15:25:00, MRINotes: (Same as: Ativan) Inactive 04/14/2015 [facility] Ativan 0.5 mg, 0.25 mL, Route: IVP, Drug form: INJ, ONCE, Dosing Weight 63.182, kg, PRN Other -See Comment, once prior to MRI, Start date: 04/14/15 15:22:00, MRINotes: (Same as: Ativan) Inactive 04/14/2015 [facility] Glipizide 5 MG Oral Tablet 5 mg, 1 tab, Route: PO, Drug form: TAB, Lunch, Dosing Weight 67.273, kg, Start date: 04/14/15 12:00:00, Duration: 30 day, Stop date: 05/13/15 12:00:00Notes: (Same as: Glucotrol) 30 min before meals. No Longer Active 04/14/2015 [facility] Metformin 1,000 mg, 2 tab, Route: PO, Drug form: TAB, Lunch, Dosing Weight 67.273, kg, Start date: 04/14/15 12:00:00, Duration: 30 day, Stop date: 05/13/15 12:00:00Notes: (Same as: Glucophage) Take with meal No Longer Active 04/14/2015 [facility] metoprolol tartrate 25 mg, 1 tab, Route: PO, Drug form: TAB, Q12H, Dosing Weight 67.273, kg, Start date: 04/14/15 9:00:00, Duration: 30 day, Stop date: 05/13/15 21:00:00Notes: (Same as: Lopressor) No Longer Active 04/14/2015 [facility] Spiriva 18 microgram, 1 inhalation, Route: INHALATION, Drug form: CAP, Daily, Dosing Weight 67.273, kg, Start date: 04/14/15 9:00:00, Duration: 30 day, Stop date: 05/13/15 9:00:00Notes: (Same As: Spiriva). No Longer Active 04/14/2015 [facility] Symbicort 160/4.5 inhalation aerosol with adapter 2 puff, Route: INHALATION, Drug Form: AERO/A, Dosing Weight 67.273, kg, BID, Start date: 04/14/15 9:00:00, Duration: 30 day, Stop date: 05/13/15 17:00:00Notes: (Same as: Symbicort) No Longer Active 04/14/2015 [facility] clopidogrel 75 mg, 1 tab, Route: PO, Drug form: TAB, Daily, Dosing Weight 67.273, kg, Start date: 04/14/15 9:00:00, Duration: 30 day, Stop date: 05/13/15 9:00:00Notes: (Same As: Plavix) No Longer Active 04/14/2015 [facility] Losartan 100 mg, 2 tab, Route: PO, Drug form: TAB, Daily, Dosing Weight 67.273, kg, Start date: 04/14/15 9:00:00, Duration: 30 day, Stop date: 05/13/15 9:00:00Notes: (Same as: Cozaar) No Longer Active 04/14/2015 [facility] Naproxen 500 mg, 2 tab, Route: PO, Drug form: TAB, [id number], Dosing Weight 63.182, kg, Start date: 04/14/15 2:00:00, Stop date: 05/13/15 14:00:00Notes: (Same as: Naprosyn) Take with food. No Longer Active 04/14/2015 [facility] Nitroglycerin 0.4 MG Sublingual Tablet 0.4 mg, 1 tab, Route: SL, Drug form: TAB, Q5Min, Dosing Weight 63.182, kg, PRN Chest Pain, Start date: 04/14/15 1:43:00, Duration: 30 day, Stop date: 05/14/15 1:42:00Notes: (Same as:Nitroquick, Nitrostat) "Do Not Crush" Sublingual tablet No Longer Active 04/14/2015 [facility] Atropine 0.5 mg, 5 mL, Route: IVP, Drug form: INJ, ONCE, Dosing Weight 63.182, kg, PRN Bradycardia, Start date: 04/14/15 1:43:00, symptomatic bradycardia HR No Longer Active 04/14/2015 [facility] Insulin, Aspart, Human 2 unit, 0.02 mL, Route: SUB-Q, Drug form: SOLN, TID-Before Meals, Dosing Weight 63.182, kg, PRN Blood Glucose Results, Start date: 04/14/15 1:41:00, Duration: 30 day, Stop date: 05/14/15 1:40:00Notes: Roll in palms of hands gently; Do not shake vigorously. (Same as: NovoLOG) "single patient use only" Stable for 28 days at room temperature. Expires in days from Date No Longer Active 04/14/2015 [facility] Glucagon 1 mg, Route: IM, Drug form: PDR/INJ, PRN, Dosing Weight 63.182, kg, PRN Blood Glucose Results, Start date: 04/14/15 1:41:00, Duration: 30 day, Stop date: 05/14/15 1:40:00 No Longer Active 04/14/2015 [facility] Dextrose 50% Syringe 25 gm, 50 mL, Route: IVP, Drug Form: INJ, Dosing Weight 63.182, kg, PRN, PRN Blood Glucose Results, Start date: 04/14/15 1:41:00, Duration: 30 day, Stop date: 05/14/15 1:40:00 No Longer Active 04/14/2015 [facility] pantoprazole 40 mg, Route: IVP, Drug form: INJ, Daily, Dosing Weight 67.273, kg, Priority: STAT, Start date: 04/14/15 1:38:00, Duration: 30 day, Stop date: 05/13/15 9:00:00Notes: For IV push reconstitute with 10 ml 0.9% sodium chloride and push over 2 minutes. (Same as: Protonix) No Longer Active 04/14/2015 [facility] Albuterol 0.833 MG/ML / Ipratropium Villalba 0.167 MG/ML Inhalant Solution [DuoNeb] 3 ml, Route: INHALATION, Drug Form: SOLN, Dosing Weight 67.273, kg, PRN, PRN Respiratory Protocol, Start date: 04/14/15 1:38:00, Duration: 30 day, Stop date: 05/14/15 1:37:00Notes: (Same as: Duoneb) No Longer Active 04/14/2015 [facility] Morphine 4 mg, 2 mL, Route: IVP, Drug form: INJ, Q3H, Dosing Weight 67.273, kg, PRN Pain Score 4-6, Start date: 04/14/15 1:38:00, Duration: 30 day, Stop date: 05/14/15 1:37:00Notes: (Same as:MORPhine Sulfate) No Longer Active 04/14/2015 [facility] Ondansetron 4 mg, 2 mL, Route: IVP, Drug form: INJ, Q6H, Dosing Weight 63.182, kg, PRN Nausea & Vomiting, Start date: 04/14/15 1:38:00, Duration: 30 day, Stop date: 05/14/15 1:37:00Notes: (Same as: [place]) MEDICATION WASTE Product Size: 4 mg Product Wasted: ___ mg No Longer Active 04/14/2015 [facility] Acetaminophen 650 mg, 2 tab, Route: PO, Drug form: TAB, Q4H, Dosing Weight 63.182, kg, PRN Pain 1-3/Temp > 100.4 F, Start date: 04/14/15 1:38:00, Duration: 30 day, Stop date: 05/14/15 1:37:00Notes: Do not exceed 4 gm/day. (Same as: Tylenol) No Longer Active 04/14/2015 [facility] Sodium Chloride 0.154 MEQ/ML Injectable Solution 1,000 mL, Rate: 75 ml/hr, Infuse over: 13.3 hr, Route: IV, Dosing Weight 63.182 kg, Total Volume: 1,000, Start date: 04/14/15 1:38:00, Duration: 30 day, Stop date: 05/14/15 1:37:00 No Longer Active 04/14/2015 [facility] Saline Flush 0.9% 10 ml, Route: IVP, Drug Form: INJ, Dosing Weight 63.182, kg, PRN, PRN Line Flush, Start date: 04/14/15 1:38:00, Duration: 30 day, Stop date: 05/14/15 1:37:00Notes: (Same as: BD Posiflush) No Longer Active 04/14/2015 [facility] tramadol hydrochloride 50 MG Oral Tablet 50 mg, 1 tab, Route: PO, Drug form: TAB, Q6H, Dosing Weight 67.273, kg, PRN Pain Score 1-5, Start date: 04/14/15 0:02:00, Duration: 30 day, Stop date: 05/14/15 0:01:00Notes: Not to exceed 400mg/day. (Same As: Ultram) No Longer Active 04/14/2015 [facility] Acetaminophen 325 MG / butalbital 50 MG / Caffeine 40 MG Oral Tablet 1 tab, Route: PO, Drug Form: TAB, Dosing Weight 67.273, kg, Q4H, PRN Headache 1-5, Start date: 04/14/15 0:02:00, Duration: 30 day, Stop date: 05/14/15 0:01:00Notes: (yzrhuvifxlubb-sxpcsvfmcb-hmafpime 325-50-40mg) Do not exceed 4 gm/day of acetaminophen. (Same as: Esgic, Fioricet) No Longer Active 04/14/2015 [facility] 200 ACTUAT Albuterol 0.09 MG/ACTUAT Metered Dose Inhaler [ProAir HFA] 2 puff, Route: INHALATION, Drug Form: AERO/A, Dosing Weight 67.273, kg, Q6H, PRN Wheezing, Start date: 04/14/15 0:02:00, Duration: 30 day, Stop date: 05/14/15 0:01:00Notes: Albuterol 90 microgram/inh 8gm HFA Same as: Ventolin, Proventil No Longer Active 04/14/2015 [facility] Acetaminophen 325 MG / butalbital 50 MG / Caffeine 40 MG Oral Tablet 1 tab, PO, Q4H, PRN Headache, Not to exceed more than 6 tablets in 24 hoursSpecial Instructions: Not to exceed more than 6 tablets in 24 hours Active 04/14/2015 [facility] atorvastatin 20 mg oral tablet 20 mg=1 tab, PO, Bedtime Active 04/14/2015 [facility] clopidogrel 75 mg oral tablet 75 mg=1 tab, PO, Daily Active 04/14/2015 [facility] losartan 100 mg oral tablet 100 mg=1 tab, PO, Daily Active 04/14/2015 [facility] Metoprolol Tartrate 25 mg oral tablet 25 mg=1 tab, PO, BID Active 04/14/2015 [facility] Symbicort 160/4.5 inhalation aerosol with adapter 2 puff, INHALATION, BID Active 04/14/2015 [facility] metFORmin 500 mg, PO, BID, Substitution Allowed Active 05/22/2013 [facility] simvastatin 20 mg, 1 tab, Route: PO, Drug form: TAB, Bedtime, Dosing Weight 65.909, kg, Start date: 05/21/13 21:00:00, Duration: 30 day, Stop date: 06/19/13 21:00:00(Same as: Zocor) No Longer Active Alex 05/22/2013 [facility] ketorolac 10 mg, 0.33 mL, Route: INJ, Drug form: INJ, Q6H, Dosing Weight 67.273, kg, Start date: 05/21/13 12:00:00, Duration: 4 day, Stop date: 05/25/13 6:00:00(Same as:Toradol) IV bolus must be given >15 seconds. Give IM administration slowly and deeply into the muscle. Not for use > 4 days No Longer Active Marcella 05/21/2013 [facility] pneumococcal 23-valent vaccine 0.5 ml, Route: IM, Drug Form: INJ, Start date: 05/21/13 9:00:00, Stop date: 05/21/13 9:00:00 Inactive SYSTEM 05/21/2013 [facility] influenza virus vaccine, inactivated 0.5 ml, Route: IM, Drug Form: SUSP, Start date: 05/21/13 9:00:00, Stop date: 05/21/13 9:00:00 Inactive SYSTEM 05/21/2013 [facility] Lyrica 50 mg, 1 cap, Route: PO, Drug form: CAP, TID, Dosing Weight 65.909, kg, Start date: 05/21/13 9:00:00, Duration: 30 day, Stop date: 06/19/13 17:00:00Same as Lyrica No Longer Active Alex 05/21/2013 [facility] Pyridium 100 mg, 1 tab, Route: PO, Drug form: TAB, TID, Dosing Weight 65.909, kg, Start date: 05/21/13 9:00:00, Duration: 30 day, Stop date: 06/19/13 17:00:00Give with meals. (Same as: Pyridium) No Longer Active Alex 05/21/2013 [facility] Spiriva 18 microgram, 1 inhalation, Route: INHALATION, Drug form: CAP, Daily, Dosing Weight 65.909, kg, Start date: 05/21/13 9:00:00, Duration: 30 day, Stop date: 06/19/13 9:00:00(Same As: Spiriva). No Longer Active Alex 05/21/2013 [facility] metFORmin 1000 mg oral tablet 1,000 mg, 2 tab, Route: PO, Drug form: TAB, BID, Dosing Weight 65.909, kg, Start date: 05/21/13 9:00:00, Duration: 30 day, Stop date: 06/19/13 17:00:00(Same as: Glucophage) Take with meal No Longer Active Jeffery 05/21/2013 [facility] glipiZIDE 5 mg oral tablet 5 mg, 1 tab, Route: PO, Drug form: TAB, Daily, Dosing Weight 65.909, kg, Start date: 05/21/13 9:00:00, Duration: 30 day, Stop date: 06/19/13 9:00:00(Same as: Glucotrol) 30 min before meals. No Longer Active Alex 05/21/2013 [facility] amLODipine 2.5 mg, 1 tab, Route: PO, Drug form: TAB, Daily, Dosing Weight 65.909, kg, Start date: 05/21/13 9:00:00, Duration: 30 day, Stop date: 06/19/13 9:00:00(Same as: Norvasc) No Longer Active Alex 05/21/2013 [facility] Sodium Chloride 0.9% IV 1,000 mL 1,000 mL, Rate: 150 ml/hr, Infuse over: 6.7 hr, Route: IV, Dosing Weight 67.273 kg, Total Volume: 1,000, Start date: 05/20/13 22:31:00, Duration: 30 day, Stop date: 06/19/13 22:30:00 No Longer Active Alex 05/21/2013 [facility] Sodium Chloride 0.9% IV 1,000 mL 1,000 mL, Rate: 150 ml/hr, Infuse over: 6.7 hr, Route: IV, Dosing Weight 65.909 kg, Total Volume: 1,000, Start date: 05/20/13 22:29:00, Duration: 30 day, Stop date: 06/19/13 22:28:00 Inactive Alex 05/21/2013 [facility] acetaminophen 650 mg, 20.3 mL, Route: PO, Drug form: LIQ, Q4H, Dosing Weight 65.909, kg, PRN Pain 1-3/Temp > 100.4 F, Start date: 05/20/13 22:22:00, Duration: 30 day, Stop date: 06/19/13 22:21:00Max [id number]=1219zo/day (4 gm/day). (Same as: Tylenol) No Longer Active Alex 05/21/2013 [facility] ondansetron 4 mg, 2 mL, Route: IVP, Drug form: INJ, Q8H, Dosing Weight 65.909, kg, PRN Nausea & Vomiting, Start date: 05/20/13 22:22:00, Duration: 30 day, Stop date: 06/19/13 22:21:00(Same as: Zofran) No Longer Active Alex 05/21/2013 [facility] glucagon 1 mg, Route: IM, Drug form: PDR/INJ, PRN, Dosing Weight 65.909, kg, PRN Blood Glucose Results, Start date: 05/20/13 22:20:00, Duration: 30 day, Stop date: 06/19/13 21:19:00 No Longer Active Alex 05/21/2013 [facility] insulin aspart 8 unit, 0.08 mL, Route: SUB-Q, Drug form: SOLN, Sliding Scale, Dosing Weight 65.909, kg, PRN Blood Glucose Results, Start date: 05/20/13 22:20:00, Duration: 30 day, Stop date: 06/19/13 21:19:00Roll in p alms of hands gently; Do not shake vigorously. (Same as: NovoLog) "single patient use only" Stable for 28 days at room temperature. Expires in days from Date No Longer Active Alex 05/21/2013 [facility] Dextrose 50% Syringe 25 gm, 50 mL, Route: IVP, Drug Form: INJ, Dosing Weight 65.909, kg, PRN, PRN Blood Glucose Results, Start date: 05/20/13 22:20:00, Duration: 30 day, Stop date: 06/19/13 21:19:00 No Longer Active Aelx 05/21/2013 [facility] ProAir HFA 90 mcg/inh inhalation aerosol with adapter 2 puff, Route: INHALATION, Drug Form: AERO/A, Dosing Weight 65.909, kg, Q6H, PRN as needed for wheezing, Start date: 05/20/13 22:20:00, Duration: 30 day, Stop date: 06/19/13 22:19:00Albuterol 90 microgram/inh 8gm HFA Same as: Ventolin Proventil No Longer Active Alex 05/21/2013 [facility] insulin aspart 6 unit, 0.06 mL, Route: SUB-Q, Drug form: SOLN, Sliding Scale, Dosing Weight 65.909, kg, PRN Blood Glucose Results, Start date: 05/20/13 22:19:00, Duration: 30 day, Stop date: 06/19/13 21:18:00Roll in p alms of hands gently; Do not shake vigorously. (Same as: NovoLog) "single patient use only" Stable for 28 days at room temperature. Expires in days from Date No Longer Active Alex 05/21/2013 [facility] morphine Sulfate 1 mg, 0.5 mL, Route: IVP, Drug form: INJ, Q4H, Dosing Weight 65.909, kg, PRN Pain Score 4-6, Start date: 05/20/13 22:19:00, Duration: 30 day, Stop date: 06/19/13 22:18:00(Same as:MORPhine Sulfate) No Longer Active Alex 05/21/2013 [facility] hydrALAZINE 10 mg, 0.5 mL, Route: IVP, Drug form: INJ, Q6H, Dosing Weight 65.909, kg, PRN Other -See Comment, Start date: 05/20/13 22:19:00, Duration: 30 day, Stop date: 06/19/13 22:18:00, SBP > 170(Same as: Apr esoline) No Longer Active Alex 05/21/2013 [facility] DuoNeb inhalation solution 3 ml, Route: INHALATION, Drug Form: SOLN, Dosing Weight 65.909, kg, PRN, PRN Respiratory Protocol, Start date: 05/20/13 22:19:00, Duration: 30 day, Stop date: 06/19/13 21:18:00(Same as: Duoneb) No Longer Active Alex 05/21/2013 [facility] Dextrose 50% Syringe 12.5 gm, 25 mL, Route: IVP, Drug Form: INJ, Dosing Weight 65.909, kg, PRN, PRN Blood Glucose Results, Start date: 05/20/13 22:19:00, Duration: 30 day, Stop date: 06/19/13 21:18:00 No Longer Active Alex 05/21/2013 [facility] Saline Flush 0.9% 5 ml, Route: IVP, Drug Form: INJ, Dosing Weight 65.909, kg, PRN, PRN Line Flush, Start date: 05/20/13 22:19:00, Duration: 30 day, Stop date: 06/19/13 21:18:00(Same as: BD Posiflush) No Longer Active Alex 05/21/2013 [facility] Sodium Chloride 0.9% IV 1,000 mL 1,000 mL, Rate: 125 ml/hr, Infuse over: 8 hr, Route: IV, Dosing Weight 65.909 kg, Total Volume: 1,000, Start date: 05/20/13 22:19:00, Duration: 30 day, Stop date: 06/19/13 22:18:00 Inactive White 05/21/2013 [facility] simvastatin 20 mg, 1 tab, Route: PO, Drug form: TAB, Bedtime, Dosing Weight 65.909, kg, Start date: 05/20/13 21:00:00, Duration: 30 day, Stop date: 06/18/13 21:00:00(Same as: Zocor) Inactive Alex 05/21/2013 [facility] hydrALAZINE 10 mg, 0.5 mL, Route: IVP, Drug form: INJ, Q6H, Dosing Weight 65.909, kg, PRN Other -See Comment, Start date: 05/20/13 20:52:00, Duration: 30 day, Stop date: 06/19/13 20:51:00, SBP > 170(Same as: Apr esoline) Inactive Alex 05/21/2013 [facility] DuoNeb inhalation solution 3 ml, Route: INHALATION, Drug Form: SOLN, Dosing Weight 65.909, kg, PRN, PRN Respiratory Protocol, Start date: 05/20/13 20:52:00, Duration: 30 day, Stop date: 06/19/13 19:51:00(Same as: Duoneb) Inactive Alex 05/21/2013 [facility] Sodium Chloride 0.9% IV 1,000 mL 1,000 mL, Rate: 125 ml/hr, Infuse over: 8 hr, Route: IV, Dosing Weight 65.909 kg, Total Volume: 1,000, Start date: 05/20/13 20:52:00, Duration: 30 day, Stop date: 06/19/13 20:51:00 Inactive Alex 05/21/2013 [facility] Saline Flush 0.9% 5 ml, Route: IVP, Drug Form: INJ, Dosing Weight 65.909, kg, PRN, PRN Line Flush, Start date: 05/20/13 20:52:00, Duration: 30 day, Stop date: 06/19/13 19:51:00(Same as: BD Posiflush) Inactive Alex 05/21/2013 [facility] morphine Sulfate 1 mg, 0.5 mL, Route: IVP, Drug form: INJ, Q4H, Dosing Weight 65.909, kg, PRN Pain Score 4-6, Start date: 05/20/13 20:52:00, Duration: 30 day, Stop date: 06/19/13 20:51:00(Same as:MORPhine Sulfate) Inactive Alex 05/21/2013 [facility] ondansetron 4 mg, 2 mL, Route: IVP, Drug form: INJ, Q8H, Dosing Weight 65.909, kg, PRN Nausea & Vomiting, Start date: 05/20/13 20:52:00, Duration: 30 day, Stop date: 06/19/13 20:51:00(Same as: Zofran) Inactive Alex 05/21/2013 [facility] acetaminophen 650 mg, 20.3 mL, Route: PO, Drug form: LIQ, Q4H, Dosing Weight 65.909, kg, PRN Pain 1-3/Temp > 100.4 F, Start date: 05/20/13 20:52:00, Duration: 30 day, Stop date: 06/19/13 20:51:00Max [id number]/day (4 gm/day). (Same as: Tylenol) Inactive Alex 05/21/2013 [facility] ProAir HFA 90 mcg/inh inhalation aerosol with adapter 180 microgram, Route: INHALATION, Drug Form: AERO/A, Dosing Weight 65.909, kg, Q6H, PRN as needed for wheezing, Start date: 05/20/13 20:50:00, Duration: 30 day, Stop date: 06/19/13 20:49:00Albuterol 90 microgram/inh 8gm HFA Same as: Ventshad Proventil Inactive Alex 05/21/2013 [facility] insulin aspart 2 unit, 0.02 mL, Route: SUB-Q, Drug form: SOLN, Sliding Scale, Dosing Weight 65.909, kg, PRN Blood Glucose Results, Start date: 05/20/13 20:50:00, Duration: 30 day, Stop date: 06/19/13 19:49:00Roll in p alms of hands gently; Do not shake vigorously. (Same as: NovoLog) "single patient use only" Stable for 28 days at room temperature. Expires in days from Date Inactive Alex 05/21/2013 [facility] Dextrose 50% Syringe 12.5 gm, 25 mL, Route: IVP, Drug Form: INJ, Dosing Weight 65.909, kg, PRN, PRN Blood Glucose Results, Start date: 05/20/13 20:50:00, Duration: 30 day, Stop date: 06/19/13 19:49:00 Inactive Alex 05/21/2013 [facility] glucagon 1 mg, Route: IM, Drug form: PDR/INJ, PRN, Dosing Weight 65.909, kg, PRN Blood Glucose Results, Start date: 05/20/13 20:50:00, Duration: 30 day, Stop date: 06/19/13 19:49:00 Inactive Alex 05/21/2013 [facility] acetaminophen 650 mg, 2 tab, Route: PO, Drug form: TAB, ONCE, Dosing Weight 65.909, kg, Priority: STAT, Start date: 05/20/13 20:42:00, Stop date: 05/20/13 20:42:00Do not exceed 4 gm/day. (Same as: Tylenol) Inactive White 05/21/2013 [facility] Dextrose 50% Syringe 50 mL, Route: IVP, Dosing Weight 65.909, kg, PRN, PRN Blood Glucose Results, Start date: 05/20/13 20:39:00, Duration: 30 day, Stop date: 06/19/13 19:38:00 Inactive White 05/21/2013 [facility] glucagon 1 mg, Route: IM, PRN, Dosing Weight 65.909, kg, PRN Blood Glucose Results, Start date: 05/20/13 20:39:00, Duration: 30 day, Stop date: 06/19/13 19:38:00 Inactive White 05/21/2013 [facility] insulin aspart 10 unit, Route: SUB-Q, TID-Before Meals, Dosing Weight 65.909, kg, PRN Blood Glucose Results, Start date: 05/20/13 20:39:00, Duration: 30 day, Stop date: 06/19/13 20:38:00 Inactive White 05/21/2013 [facility] ceftriaxone + Sodium Chloride 0.9% IV 100 mL 1 gm, Route: IVPB, [id number], Dosing Weight 65.909, kg, Priority: STAT, Start date: 05/20/13 19:23:00, Duration: 30 day, Stop date: 06/18/13 19:23:00(Same As: Rocephin). Use with 100ml NS mini-bag PLUS and infuse over 30 min No Longer Active [place] 05/21/2013 [facility] gentamicin 80 mg, 100 mL, Route: IVPB, Drug form: INJ, [id number], Dosing Weight 65.909, kg, Priority: STAT, Start date: 05/20/13 19:21:00, Duration: 30 day, Stop date: 06/19/13 15:00:00(Same as Garamycin) No Longer Active [place] 05/21/2013 [facility] Dilaudid 0.5 mg, Route: IV, ONCE, Dosing Weight 65.909, kg, Start date: 05/20/13 17:30:00, Stop date: 05/20/13 17:30:00 Inactive [place] 05/20/2013 [facility] ondansetron 4 mg, Route: IVP, ONCE, Dosing Weight 65.909, kg, Priority: STAT, Start date: 05/20/13 16:03:00, Stop date: 05/20/13 16:03:00 Inactive [place] 05/20/2013 [facility] pantoprazole 40 mg, Route: IVP, ONCE, Dosing Weight 65.909, kg, For IV push reconstitute with 10 ml 0.9% sodium chloride and push over at least 3 minutes, Priority: STAT, Start date: 05/20/13 16:03:00, Stop date: 05/20/13 16:03:00 Inactive [place] 05/20/2013 [facility] GI cocktail 30 mL, Route: PO, Dosing Weight 65.909, kg, ONCE, STAT, Start date: 05/20/13 16:03:00, Stop date: 05/20/13 16:03:00 Inactive [place] 05/20/2013 [facility] morphine Sulfate 4 mg, Route: IVP, ONCE, Dosing Weight 65.909, kg, Priority: STAT, Start date: 05/20/13 16:03:00, Stop date: 05/20/13 16:03:00 Inactive [place] 05/20/2013 [facility] Saline Flush 0.9% 5 mL, Route: IVP, Drug Form: INJ, Dosing Weight 65.909, kg, PRN, PRN Line Flush, Start date: 05/20/13 16:03:00, Duration: 24 hr, Stop date: 05/21/13 16:02:00(Same as: BD Posiflush) Inactive [place] 05/20/2013 [facility] Pyridium 200 mg, Route: PO, ONCE, Dosing Weight 65.909, kg, Start date: 05/20/13 10:08:00, Stop date: 05/20/13 10:08:00 Inactive [place] 05/20/2013 [facility] tramadol 50 mg oral tablet 1 tab, Route: PO, Drug form: TAB, ONCE, Dosing Weight 65.909, kg, Start date: 05/20/13 10:07:00, Stop date: 05/20/13 10:07:00 Inactive [place] 05/20/2013 [facility] ondansetron 4 mg, 2 mL, Route: IVP, Drug form: INJ, ONCE, Dosing Weight 65.909, kg, PRN Nausea & Vomiting, Start date: 05/20/13 8:53:00(Same as: Zofran) Inactive [place] 05/20/2013 [facility] flumazenil 0.2 mg, 2 mL, Route: IVP, Drug form: INJ, PRN, Dosing Weight 65.909, kg, PRN Benzodiazepine Reversal, Initial dose, Start date: 05/20/13 8:53:00, Duration: 30 day, Stop date: 06/19/13 7:52:00(Same as: Romazicon) Inactive [place] 05/20/2013 [facility] naloxone 0.04 mg, 0.1 mL, Route: IVP, Drug form: INJ, Q2MIN, Dosing Weight 65.909, kg, PRN Narcotic Reversal, Start date: 05/20/13 8:53:00, Duration: 8 doses or times, Stop date: Limited # of times(Same as: Narcan) Inactive [facility] 05/20/2013 [facility] meperidine 12.5 mg, 0.25 mL, Route: IVP, Drug form: INJ, Q30Min, Dosing Weight 65.909, kg, PRN Other -See Comment, For shivering, Start date: 05/20/13 8:53:00, Duration: 2 doses or times, Stop date: Limited # of times(Same As: Demerol) Inactive [facility] 05/20/2013 [facility] hydromorphone 0.5 mg, 0.5 mL, Route: IVP, Drug form: INJ, Q5Min, Dosing Weight 65.909, kg, PRN Pain Score 7-10, Start date: 05/20/13 8:53:00, Duration: 5 doses or times, Stop date: Limited # of times Inactive [facility] 05/20/2013 [facility] fentanyl 25 microgram, Route: IVP, Q5Min, Dosing Weight 65.909, kg, PRN Pain Score 4-6, Start date: 05/20/13 8:53:00, Duration: 4 doses or times, Stop date: Limited # of times Inactive [facility] 05/20/2013 [facility] acetaminophen-hydrocodone 325 mg-5 mg oral tablet 2 tab, Route: PO, Drug Form: TAB, Dosing Weight 65.909, kg, Q4H, PRN Pain Score 4-6, Start date: 05/20/13 8:53:00, Duration: 30 day, Stop date: 06/19/13 8:52:00(Same as: [place] 325/5) Do not exceed 4gm/day of acetaminophen. Inactive [facility] 05/20/2013 [facility] tramadol 50 mg oral tablet 50 mg, 1 tab, PO, Q6H, PRN, 40 tab, Pain, Substitution Allowed, TAB Active [place] 05/20/2013 [facility] Pyridium 100 mg oral tablet 100 mg, 1 tab, PO, TID, 21 tab, Substitution Allowed, TAB Active [place] 05/20/2013 [facility] Bactrim DS oral tablet 1 tab, PO, BID, 14 tab, Substitution Allowed, Maintenance Active [place] 05/20/2013 [facility] morphine Sulfate 2 mg, 1 mL, Route: IVP, Drug form: INJ, Q3H, Dosing Weight 65.909, kg, PRN Pain Score 1-3, Start date: 05/20/13 8:38:00, Duration: 30 day, Stop date: 06/19/13 8:37:00(Same as:MORPhine Sulfate) Inactive [facility] 05/20/2013 [facility] gentamicin 120 mg, 100 mL, Route: IVPB, Drug form: INJ, ONCALL, Dosing Weight 65.909, kg, Start date: 05/20/13 7:00:00, Duration: 30 day, Stop date: 06/19/13 5:59:00(Same as Garamycin) Inactive [facility] 05/20/2013 [facility] Ancef + Sodium Chloride 0.9% IV 100 mL 1 gm, Route: IVPB, ONCALL, Dosing Weight 65.909, kg, Start date: 05/20/13 7:00:00, Duration: 30 day, Stop date: 06/19/13 5:59:00(Same As: Ancef, Kefzol) Inactive [facility] 05/20/2013 [facility] Lactated Ringers Injection IV 1,000 mL 1,000 mL, Rate: 25 ml/hr, Infuse over: 40 hr, Route: IV, Dosing Weight 65.909 kg, Total Volume: 1,000, Start date: 05/20/13 6:47:00, Duration: 30 day, Stop date: 06/19/13 6:46:00 Inactive [facility] 05/20/2013 [facility] tramadol 50 mg oral tablet 50 mg, 1 tab, PO, Q6H, PRN, 40 tab, Pain, Substitution Allowed, TAB Active 05/13/2013 [facility] simvastatin 20 mg oral tablet 20 mg, 1 tab, PO, Bedtime, 30 tab, Substitution Allowed Active [place] 05/13/2013 [facility] metFORmin 1000 mg oral tablet 1,000 mg, 1 tab, PO, BID, 30 tab, Substitution Allowed No Longer Active [place] 05/13/2013 [facility] glipiZIDE 5 mg oral tablet 5 mg, 1 tab, PO, Daily, 30 tab, Substitution Allowed Active [place] 05/13/2013 [facility] amLODipine 2.5 mg oral tablet 2.5 mg, 1 tab, PO, Daily, 30 tab, Substitution Allowed, TAB Active [place] 05/13/2013 [facility] ProAir HFA 90 mcg/inh inhalation aerosol with adapter 2 puff, INHALATION, Q6H, PRN, 9 gm, for wheezing, Substitution Allowed, Maintenance, AERO Active [place] 05/13/2013 [facility] Spiriva 18 microgram, INHALATION, Daily, Substitution Allowed Active [place] 05/13/2013 [facility] Lyrica 50 mg oral capsule 50 mg, 1 cap, PO, TID, Substitution Allowed, CAP Active [place] 05/13/2013 [facility] naproxen 500 mg oral tablet 500 mg, 1 tab, PO, BID, 60 tab, Substitution Allowed, TAB Active 05/13/2013 [facility] Allergies, Adverse Reactions, Alerts Substance Category Reaction Severity Reaction type Status Date Reported Comments Source CeleBREX Assertion Drug allergy Active [facility] Crestor Assertion Drug allergy Active [facility] HYDROcodone Assertion Drug allergy Active [facility] Levaquin Assertion Drug allergy Active [facility] Immunizations Immunization Date Given Site Status Last Updated Comments Source influenza virus vaccine, inactivated 05/21/2013 completed [facility] influenza virus vaccine, inactivated 05/21/2013 Right deltoid completed [facility] 23-valent [facility] 05/21/2013 Not Given [facility] pneumococcal 23-valent vaccine 05/21/2013 Not [facility] Results Order Name Results Value Reference Range Date Interpretation Comments Source ELECTROLYTES AGAP 8.9 10.0 - 20.0 04/18/2015 [facility] ELECTROLYTES eGFR 95 04/18/2015 Result Comment: The eGFR is calculated using the CKD-EPI formula. In most young, healthy individuals the eGFR will be >90 mL/min/1.73m2. The eGFR declines with age. An eGFR of 60-89 may be normal in some populations, particularly the elderly, for whom the CKD-EPI formula has not been extensively validated. Use of the eGFR is not recommended in the following populations:

Individuals with unstable creatinine concentrations, including patients and those with serious co-morbid conditions.

Patients with extremes in muscle mass or diet.

The data above are obtained from the National Kidney Disease Education Program (NKDEP) which additionally recommends that when the eGFR is used in patients with extremes of body mass index for purposes of drug dosing, the eGFR should be multiplied by the estimated BMI. [facility] ELECTROLYTES Chloride Lvl 107 95 - 109 04/18/2015 [facility] ELECTROLYTES CO2 26 24 - 32 04/18/2015 [facility] ELECTROLYTES Calcium Lvl 8.5 8.5 - 10.5 04/18/2015 [facility] ELECTROLYTES BUN 13 7 - 22 04/18/2015 [facility] ELECTROLYTES Creatinine Lvl 0.6 0.5 - 1.4 04/18/2015 [facility] ELECTROLYTES Sodium Lvl 138 135 - 145 04/18/2015 [facility] ELECTROLYTES Potassium Lvl 3.9 3.5 - 5.1 04/18/2015 [facility] ELECTROLYTES Glucose Lvl 147 70 - 99 04/18/2015 [facility] HEMATOLOGY Hgb 13.1 12.0 - 16.0 04/18/2015 [facility] CARDIAC ENZYMES Total CK 51 12 - 191 04/14/2015 [facility] CARDIAC ENZYMES Troponin-I <0.02 0.00 - 0.40 04/14/2015 [facility] CARDIAC ENZYMES Total CK 53 12 - 191 04/14/2015 [facility] CARDIAC ENZYMES Troponin-I <0.02 0.00 - 0.40 04/14/2015 [facility] CHEM PANEL A/G Ratio 1.0 0.7 - 1.6 04/14/2015 [facility] CHEM PANEL Globulin 3.4 2.0 - 4.0 04/14/2015 [facility] CHEM PANEL B/C Ratio 23 6 - 25 04/14/2015 [facility] CHEM PANEL AGAP 8.1 10.0 - 20.0 04/14/2015 [facility] CHEM PANEL ALT 26 0 - 65 04/14/2015 [facility] CHEM PANEL Alk Phos 90 39 - 136 04/14/2015 [facility] CHEM PANEL Total Protein 6.9 6.4 - 8.4 04/14/2015 [facility] CHEM PANEL Bili Total 0.1 0.2 - 1.3 04/14/2015 [facility] CHEM PANEL Potassium Lvl 4.1 3.5 - 5.1 04/14/2015 [facility] CHEM PANEL Chloride Lvl 104 95 - 109 04/14/2015 [facility] CHEM PANEL Sodium Lvl 137 135 - 145 04/14/2015 [facility] CHEM PANEL BUN 14 7 - 22 04/14/2015 [facility] CHEM PANEL CO2 29 24 - 32 04/14/2015 [facility] CHEM PANEL Albumin Lvl 3.5 3.5 - 5.0 04/14/2015 [facility] CHEM PANEL eGFR 95 04/14/2015 Result Comment: The eGFR is calculated using the CKD-EPI formula. In most young, healthy individuals the eGFR will be >90 mL/min/1.73m2. The eGFR declines with age. An eGFR of 60-89 may be normal in some populations, particularly the elderly, for whom the CKD-EPI formula has not been extensively validated. Use of the eGFR is not recommended in the following populations:

Individuals with unstable creatinine concentrations, including patients and those with serious co-morbid conditions.

Patients with extremes in muscle mass or diet.

The data above are obtained from the National Kidney Disease Education Program (NKDEP) which additionally recommends that when the eGFR is used in patients with extremes of body mass index for purposes of drug dosing, the eGFR should be multiplied by the estimated BMI. [facility] CHEM PANEL Creatinine Lvl 0.6 0.5 - 1.4 04/14/2015 [facility] CHEM PANEL Glucose Lvl 172 70 - 99 04/14/2015 [facility] CHEM PANEL AST 11 0 - 37 04/14/2015 [facility] CHEM [facility] Calcium Lvl 8.4 8.5 - 10.5 04/14/2015 [facility] HEMATOLOGY RDW 12.7 11.5 - 14.5 04/14/2015 [facility] HEMATOLOGY Platelet 154 133 - 450 04/14/2015 [facility] HEMATOLOGY MCHC 32.0 32.0 - 36.0 04/14/2015 [facility] HEMATOLOGY MPV 12.2 7.4 - 10.4 04/14/2015 [facility] MCH 29.2 27.0 - 31.0 04/14/2015 [facility] HEMATOLOGY MCV 91.3 80.0 - 98.0 04/14/2015 [facility] Hgb 12.6 12.0 - 16.0 04/14/2015 [facility] RBC 4.33 4.20 - 5.40 04/14/2015 [facility] HEMATOLOGY Hct 39.5 36.0 - 48.0 04/14/2015 [facility] HEMATOLOGY WBC 10.6 3.7 - 10.4 04/14/2015 [facility] HEMATOLOGY Eosinophils 2.7 0.0 - 4.0 04/14/2015 [facility] HEMATOLOGY Basophils 0.3 0.0 - 1.0 04/14/2015 [facility] HEMATOLOGY Segs 53.6 45.0 - 75.0 04/14/2015 [facility] HEMATOLOGY Monocytes 6.0 2.0 - 12.0 04/14/2015 [facility] HEMATOLOGY Lymphocytes 37.4 20.0 - 40.0 04/14/2015 [facility] HEMATOLOGY Lymphocytes # 4.0 1.0 - 5.5 04/14/2015 [facility] HEMATOLOGY Segs-Bands # 5.7 1.5 - 8.1 04/14/2015 [facility] HEMATOLOGY Eosinophils # 0.3 0.0 - 0.5 04/14/2015 [facility] HEMATOLOGY Monocytes # 0.6 0.0 - 0.8 04/14/2015 [facility] CARDIAC ENZYMES Troponin-I <0.02 0.00 - 0.40 04/13/2015 [facility] CARDIAC ENZYMES Total CK 59 12 - 191 04/13/2015 [facility] CARDIAC ENZYMES CK MB 0.9 0.5 - 3.6 04/13/2015 [facility] CARDIAC ENZYMES BNP 14 <=100 pg/mL 04/13/2015 [facility] CARDIAC ENZYMES CK MB Index 1.5 0.0 - 2.5 04/13/2015 [facility] ELECTROLYTES Chloride Lvl 103 95 - 109 04/13/2015 [facility] ELECTROLYTES Potassium Lvl 3.8 3.5 - 5.1 04/13/2015 [facility] ELECTROLYTES Sodium Lvl 136 135 - 145 04/13/2015 [facility] ELECTROLYTES AGAP 9.8 10.0 - 20.0 04/13/2015 [facility] ELECTROLYTES Calcium Lvl 8.6 8.5 - 10.5 04/13/2015 [facility] ELECTROLYTES Creatinine Lvl 0.6 0.5 - 1.4 04/13/2015 [facility] ELECTROLYTES CO2 27 24 - 32 04/13/2015 [facility] ELECTROLYTES BUN 14 7 - 22 04/13/2015 [facility] ELECTROLYTES Glucose Lvl 267 70 - 99 04/13/2015 [facility] ELECTROLYTES eGFR 95 04/13/2015 Result Comment: The eGFR is calculated using the CKD-EPI formula. In most young, healthy individuals the eGFR will be >90 mL/min/1.73m2. The eGFR declines with age. An eGFR of 60-89 may be normal in some populations, particularly the elderly, for whom the CKD-EPI formula has not been extensively validated. Use of the eGFR is not recommended in the following populations:

Individuals with unstable creatinine concentrations, including patients and those with serious co-morbid conditions.

Patients with extremes in muscle mass or diet.

The data above are obtained from the National Kidney Disease Education Program (NKDEP) which additionally recommends that when the eGFR is used in patients with extremes of body mass index for purposes of drug dosing, the eGFR should be multiplied by the estimated BMI. [facility] HEMATOLOGY PTT 28.5 22.9 - 35.8 04/13/2015 [facility] HEMATOLOGY PT 13.1 12.0 - 14.7 04/13/2015 [facility] INR 0.96 0.85 - 1.17 04/13/2015 [facility] Hgb 13.2 12.0 - 16.0 04/13/2015 [facility] MPV 11.3 7.4 - 10.4 04/13/2015 [facility] Platelet 151 133 - 450 04/13/2015 [facility] MCHC 31.9 32.0 - 36.0 04/13/2015 [facility] MCH 29.4 27.0 - 31.0 04/13/2015 [facility] MCV 92.0 80.0 - 98.0 04/13/2015 [facility] Hct 41.2 36.0 - 48.0 04/13/2015 [facility] RBC 4.48 4.20 - 5.40 04/13/2015 [facility] WBC 11.3 3.7 - 10.4 04/13/2015 [facility] RDW 12.7 11.5 - 14.5 04/13/2015 [facility] Eosinophils # 0.3 0.0 - 0.5 04/13/2015 [facility] HEMATOLOGY Lymphocytes # 2.8 1.0 - 5.5 04/13/2015 [facility] Monocytes # 0.8 0.0 - 0.8 04/13/2015 [facility] Basophils 0.4 0.0 - 1.0 04/13/2015 [facility] Monocytes 7.1 2.0 - 12.0 04/13/2015 [facility] HEMATOLOGY Eosinophils 2.7 0.0 - 4.0 04/13/2015 [facility] HEMATOLOGY Lymphocytes 24.8 20.0 - 40.0 04/13/2015 [facility] HEMATOLOGY Segs-Bands # 7.4 1.5 - 8.1 04/13/2015 [facility] HEMATOLOGY RBC Morph Normal (04/13/15 5:40 PM) 04/13/2015 [facility] HEMATOLOGY Plt Morph Normal (04/13/15 5:40 PM) 04/13/2015 [facility] HEMATOLOGY Segs 65.0 45.0 - 75.0 04/13/2015 [facility] BEDSIDE GLUCOSE TESTING Glucose POC 140 70 - 99 05/22/2013 [place] <sup>1</sup>Interpretive Data: Upper Reportable Limit: 200 mg/dL. [facility] BEDSIDE GLUCOSE TESTING Gluc POC Comment 2 Cleaned Meter 05/22/2013 [facility] BEDSIDE GLUCOSE TESTING Glucose POC 130 70 - 99 05/22/2013 [place] <sup>2</sup>Interpretive Data: Upper Reportable Limit: 200 mg/dL. [facility] BEDSIDE GLUCOSE TESTING Gluc POC Comment 1 Notified RN/MD 05/22/2013 [facility] CHEMISTRY AGAP 13.9 10.0 - 20.0 05/22/2013 Normal [facility] CHEMISTRY eGFR 102 05/22/2013 <sup>4</sup>Result Comment: The eGFR is calculated using the CKD-EPI formula. In most young, healthy individuals the eGFR will be >90 mL/min/1.73m2. The eGFR declines with age. An eGFR of 60-89 may be normal in some populations, particularly the elderly, for whom the CKD-EPI formula has not been extensively validated. Use of the eGFR is not recommended in the following populations:& lt;br/>
Individuals with unstable creatinine concentrations, including patients and those with serious co-morbid conditions.

Patients with extremes in muscle mass or diet.

The data above are obtained from the National Kidney Disease Education Program (NKDEP) which additionally recommends that when the eGFR is used in patients with extremes of body mass index for purposes of drug dosing, the eGFR should be multiplied by the estimated BMI. [facility] CHEMISTRY BUN 11 7 - 22 05/22/2013 Normal [facility] CHEMISTRY Glucose Lvl 147 70 - 99 05/22/2013 [place] <sup>6</sup>Interpretive Data: Adult reference range values reflect the clinical guidelines
of the [place] [employer]. [facility] CHEMISTRY CO2 22 24 - 32 05/22/2013 LOW [facility] CHEMISTRY Creatinine Lvl 0.5 0.5 - 1.4 05/22/2013 Normal [facility] CHEMISTRY Calcium Lvl 8.1 8.5 - 10.5 05/22/2013 LOW [facility] CHEMISTRY Sodium Lvl 145 135 - 145 05/22/2013 Normal [facility] CHEMISTRY Potassium Lvl 3.9 3.5 - 5.1 05/22/2013 Normal [facility] CHEMISTRY Chloride Lvl 113 95 - 109 05/22/2013 [facility] HEMATOLOGY Hct 36.3 36.0 - 48.0 05/22/2013 Normal [facility] HEMATOLOGY MCV 93.6 81.0 - 99.0 05/22/2013 Normal [facility] HEMATOLOGY MCHC 31.7 32.0 - 36.0 05/22/2013 LOW [facility] HEMATOLOGY MCH 29.7 27.0 - 31.0 05/22/2013 Normal [facility] HEMATOLOGY RDW 14.4 11.5 - 14.5 05/22/2013 Normal [facility] HEMATOLOGY MPV 11.1 7.4 - 10.4 05/22/2013 [facility] HEMATOLOGY Platelet 156 133 - 450 05/22/2013 Normal [facility] HEMATOLOGY WBC X 10x3 10.1 3.7 - 10.4 05/22/2013 Normal [facility] HEMATOLOGY RBC X 10x6 3.87 4.20 - 5.40 05/22/2013 LOW [facility] HEMATOLOGY Hgb 11.5 12.0 - 16.0 05/22/2013 LOW [facility] HEMATOLOGY Lymphocytes 29.2 20.0 - 40.0 05/22/2013 Normal [facility] HEMATOLOGY Segs 62.5 45.0 - 75.0 05/22/2013 Normal [facility] HEMATOLOGY Monocytes 5.7 2.0 - 12.0 05/22/2013 Normal [facility] HEMATOLOGY Eosinophils 2.2 0.0 - 4.0 05/22/2013 [facility] HEMATOLOGY Basophils 0.4 0.0 - 1.0 05/22/2013 [facility] HEMATOLOGY Monocytes # 0.6 0.0 - 0.8 05/22/2013 [facility] HEMATOLOGY Lymphocytes # 2.9 1.0 - 5.5 05/22/2013 Normal [facility] HEMATOLOGY Segs-Bands # 6.3 1.5 - 8.1 05/22/2013 Normal [facility] HEMATOLOGY Basophils # 0.0 0.0 - 0.2 05/22/2013 Normal [facility] HEMATOLOGY Eosinophils # 0.2 0.0 - 0.5 05/22/2013 Normal [facility] BEDSIDE GLUCOSE TESTING Glucose POC 155 70 - 99 05/22/2013 [place] <sup>3</sup>Interpretive Data: Upper Reportable Limit: 200 mg/dL. [facility] HEMATOLOGY MPV 10.8 7.4 - 10.4 05/21/2013 [place] [facility] HEMATOLOGY Platelet 171 133 - 450 05/21/2013 Normal [facility] HEMATOLOGY RDW 13.6 11.5 - 14.5 05/21/2013 Normal [facility] HEMATOLOGY MCHC 33.3 32.0 - 36.0 05/21/2013 Normal [facility] HEMATOLOGY MCH 31.1 27.0 - 31.0 05/21/2013 [facility] HEMATOLOGY MCV 93.5 81.0 - 99.0 05/21/2013 Normal [facility] HEMATOLOGY Hct 38.3 36.0 - 48.0 05/21/2013 Normal [facility] HEMATOLOGY Hgb 12.8 12.0 - 16.0 05/21/2013 Normal [facility] HEMATOLOGY RBC X 10x6 4.10 4.20 - 5.40 05/21/2013 LOW [facility] HEMATOLOGY WBC X 10x3 12.3 3.7 - 10.4 05/21/2013 [place] [facility] HEMATOLOGY Basophils # 0.0 0.0 - 0.2 05/21/2013 Normal [facility] HEMATOLOGY Eosinophils # 0.2 0.0 - 0.5 05/21/2013 Normal [facility] HEMATOLOGY Lymphocytes # 3.5 1.0 - 5.5 05/21/2013 Normal [facility] HEMATOLOGY Monocytes # 0.8 0.0 - 0.8 05/21/2013 Normal [facility] HEMATOLOGY Segs-Bands # 7.8 1.5 - 8.1 05/21/2013 Normal [facility] HEMATOLOGY Basophils 0.2 0.0 - 1.0 05/21/2013 Normal [facility] HEMATOLOGY Eosinophils 1.3 0.0 - 4.0 05/21/2013 Normal [facility] HEMATOLOGY Monocytes 6.7 2.0 - 12.0 05/21/2013 Normal [facility] HEMATOLOGY Segs 63.4 45.0 - 75.0 05/21/2013 Normal [facility] HEMATOLOGY Lymphocytes 28.4 20.0 - 40.0 05/21/2013 Normal [facility] BLOOD BANK RESULTS Antibody Scrn Negative (05/20/2013 19:58:00) 05/21/2013 Normal [facility] BLOOD BANK RESULTS ABO/Rh B POS 05/21/2013 [facility] CHEMISTRY Lactic Acid Lvl 1.1 0.5 - 2.2 05/21/2013 Normal [facility] CHEMISTRY CK-MB INDEX 0.8 0.0 - 2.5 05/20/2013 Normal [facility] CHEMISTRY Troponin-I <0.02 0.00 - 0.40 05/20/2013 Normal [facility] CHEMISTRY Magnesium Lvl 1.9 1.8 - 2.4 05/20/2013 Normal [facility] CHEMISTRY Phosphorus 2.2 2.5 - 4.5 05/20/2013 LOW [facility] CHEMISTRY Total CK 80 12 - 191 05/20/2013 Normal [facility] CHEMISTRY CK MB 0.6 0.5 - 3.6 05/20/2013 Normal [facility] CHEMISTRY Chloride Lvl 105 95 - 109 05/20/2013 Normal [facility] CHEMISTRY Sodium Lvl 135 135 - 145 05/20/2013 Normal [facility] CHEMISTRY Potassium Lvl 4.4 3.5 - 5.1 05/20/2013 Normal [facility] CHEMISTRY eGFR 102 05/20/2013 <sup>5</sup>Result Comment: The eGFR is calculated using the CKD-EPI formula. In most young, healthy individuals the eGFR will be >90 mL/min/1.73m2. The eGFR declines with age. An eGFR of 60-89 may be normal in some populations, particularly the elderly, for whom the CKD-EPI formula has not been extensively validated. Use of the eGFR is not recommended in the following populations:& lt;br/>
Individuals with unstable creatinine concentrations, including patients and those with serious co-morbid conditions.

Patients with extremes in muscle mass or diet.

The data above are obtained from the National Kidney Disease Education Program (NKDEP) which additionally recommends that when the eGFR is used in patients with extremes of body mass index for purposes of drug dosing, the eGFR should be multiplied by the estimated BMI. [facility] CHEMISTRY Bili Total 0.5 0.2 - 1.3 05/20/2013 Normal [facility] CHEMISTRY Globulin 3.7 2.0 - 4.0 05/20/2013 Normal [facility] CHEMISTRY B/C Ratio 20 6 - 25 05/20/2013 Normal [facility] CHEMISTRY AGAP 11.4 10.0 - 20.0 05/20/2013 Normal [facility] CHEMISTRY Alk Phos 83 39 - 136 05/20/2013 Normal [facility] CHEMISTRY ALANINE AMINOTRANSFERASE 40 0 - 65 05/20/2013 [facility] CHEMISTRY Albumin Lvl 3.9 3.5 - 5.0 05/20/2013 [facility] CHEMISTRY Total Protein 7.6 6.4 - 8.4 05/20/2013 Normal [facility] CHEMISTRY ASPARTATE TRANSAMINASE 29 0 - 37 05/20/2013 Normal [facility] CHEMISTRY Glucose Lvl 173 70 - 99 05/20/2013 [facility] <sup>7</sup>Interpretive Data: Adult reference range values reflect the clinical guidelines
of the [place] [employer]. [facility] CHEMISTRY BUN 10 7 - 22 05/20/2013 Normal [facility] CHEMISTRY Calcium Lvl 8.4 8.5 - 10.5 05/20/2013 LOW [facility] CHEMISTRY A/G Ratio 1.1 0.7 - 1.6 05/20/2013 Normal [facility] CHEMISTRY CO2 23 24 - 32 05/20/2013 LOW [facility] CHEMISTRY Creatinine Lvl 0.5 0.5 - 1.4 05/20/2013 Normal [facility] HEMATOLOGY Plt Morph Normal (05/20/2013 16:59:20) 05/20/2013 Normal [facility] HEMATOLOGY Monocytes 1.9 2.0 - 12.0 05/20/2013 LOW [facility] HEMATOLOGY Lymphocytes 8.3 20.0 - 40.0 05/20/2013 LOW [facility] HEMATOLOGY RBC Morph Normal (05/20/2013 16:59:20) 05/20/2013 [facility] HEMATOLOGY Segs-Bands # 18.4 1.5 - 8.1 05/20/2013 [facility] HEMATOLOGY Eosinophils 0.2 0.0 - 4.0 05/20/2013 [facility] HEMATOLOGY Basophils 0.0 0.0 - 1.0 05/20/2013 [facility] HEMATOLOGY Eosinophils # 0.0 0.0 - 0.5 05/20/2013 Normal [facility] HEMATOLOGY Lymphocytes # 1.7 1.0 - 5.5 05/20/2013 Normal [facility] HEMATOLOGY Monocytes # 0.4 0.0 - 0.8 05/20/2013 Normal [facility] HEMATOLOGY Segs 89.6 45.0 - 75.0 05/20/2013 [facility] HEMATOLOGY Basophils # 0.0 0.0 - 0.2 05/20/2013 Normal [facility] HEMATOLOGY MCHC 32.9 32.0 - 36.0 05/20/2013 Normal [facility] HEMATOLOGY MCH 30.5 27.0 - 31.0 05/20/2013 Normal [facility] HEMATOLOGY Platelet 196 133 - 450 05/20/2013 Normal [facility] HEMATOLOGY RDW 14.0 11.5 - 14.5 05/20/2013 Normal [facility] HEMATOLOGY Hgb 14.2 12.0 - 16.0 05/20/2013 Normal [facility] HEMATOLOGY MCV 92.6 81.0 - 99.0 05/20/2013 Normal [facility] HEMATOLOGY Hct 43.1 36.0 - 48.0 05/20/2013 Normal [facility] HEMATOLOGY MPV 11.1 7.4 - 10.4 05/20/2013 [facility] HEMATOLOGY RBC X 10x6 4.65 4.20 - 5.40 05/20/2013 Normal [facility] HEMATOLOGY WBC X 10x3 20.6 3.7 - 10.4 05/20/2013 [facility] URINALYSIS UA Color Red 05/20/2013 [facility] Sq Epi None Seen 05/20/2013 [facility] WBC 5 0 - 5 05/20/2013 [facility]IN[facility]YS[facility] UA Nitrite Positive *ABN* (05/20/2013 16:25:00) Negative 05/20/2013 [facility] URINALYSIS UA Leuk Est Negative (05/20/2013 16:25:00) Negative 05/20/2013 [facility]INALYSIS UA Bacteria Occasional /HPF None Seen 05/20/2013 [facility]A RBC >182 0 - 2 05/20/2013 [facility] URINALYSIS UA Urobilinogen 2.0 0.1 - 1.0 05/20/2013 [facility]ALYSIS UA Blood Large *ABN* (05/20/2013 16:25:00) Negative 05/20/2013 [facility] UA pH 8.0 5.0 - 8.0 05/20/2013 [facility] UA Protein 100 mg/dL Negative 05/20/2013 [facility] UA Bili Negative *NA* (05/20/2013 16:25:00) Negative 05/20/2013 [facility] UA Turbidity Marked *ABN* (05/20/2013 16:25:00) Clear 05/20/2013 [facility] UA Spec Grav 1.015 <=1.030 05/20/2013 [facility]INALYSIS UA Glucose 50 mg/dL Negative 05/20/2013 [facility] UA Ketones Trace mg/dL Negative 05/20/2013 ABN [facility] BEDSIDE GLUCOSE TESTING Glucose POC 181 70 - 99 05/20/2013 [facility] <sup>1</sup>Interpretive Data: Upper Reportable Limit: 200 mg/dL. [facility] URINALYSIS UA Urobilinogen <=1.0 mg/dL 0.1 - 1.0 05/13/2013 [facility] UA Color Ltyellow 05/13/2013 [facility]A Ketones Negative mg/dL Negative 05/13/2013 [facility]A Glucose 50 mg/dL Negative 05/13/2013 [facility]IN[facility] UA pH 5.0 5.0 - 8.0 05/13/2013 [facility] URINALYSIS UA Protein Negative mg/dL Negative 05/13/2013 [facility]INAL[facility]IS UA Spec Grav 1.004 <=1.030 05/13/2013 [facility] URINALYSIS UA Turbidity Clear (05/13/2013 12:00:22) Clear 05/13/2013 [facility] URINALYSIS UA Blood Negative (05/13/2013 12:00:22) Negative 05/13/2013 [facility] URINALYSIS UA Bili Negative *NA* (05/13/2013 12:00:22) Negative 05/13/2013 [facility] UA RBC <1 0 - 2 05/13/2013 [facility] URINALYSIS UA Sq Epi Occasional /LPF Few 05/13/2013 [facility] UA WBC <1 0 - 5 05/13/2013 [facility] URINALYSIS UA Nitrite Negative (05/13/2013 12:00:22) Negative 05/13/2013 [facility] URINALYSIS UA Leuk Est Negative (05/13/2013 12:00:22) Negative 05/13/2013 Normal [facility] CHEMISTRY AGAP 12.3 10.0 - 20.0 05/13/2013 Normal [facility] CHEMISTRY Sodium Lvl 139 135 - 145 05/13/2013 Normal [facility] CHEMISTRY Potassium Lvl 4.3 3.5 - 5.1 05/13/2013 Normal [facility] CHEMISTRY Chloride Lvl 106 95 - 109 05/13/2013 Normal [facility] CHEMISTRY eGFR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
[2019-02-18] MEDS ORDERED: ALBUTEROL/IPRATROPIUM 3 ML NEB NEB STA (12:36)
[2019-02-18] MEDS ORDERED: LIDOCAINE 5% PATCH TP SCH (12:45)
--- NOTE | 2019-02-18 12:50 | NUR ---
rec'd pt in rm 3 for left breast pain/shortness of breath
--- NOTE | 2019-02-18 13:05 | Diagnostic Imaging Report ---
EXAMINATION: CHEST SINGLE (PORTABLE) INDICATION: Chest pain COMPARISON: None FINDINGS: TUBES and LINES: None. LUNGS: The lung volumes are normal. No focal consolidation or pulmonary edema. Mild subsegmental atelectasis at the left lung base. PLEURA: No pleural effusion or pneumothorax. HEART AND MEDIASTINUM: The cardiomediastinal silhouette is normal in size and contour. BONES AND SOFT TISSUES: No acute fracture or dislocation. UPPER ABDOMEN: No free air under the diaphragm. IMPRESSION: No focal pneumonia or pulmonary edema. Mild subsegmental atelectasis at the left lung base. Signed by: Arelis Edwards MD on 02/18/2019 1:02 PM
[2019-02-18 13:15] LABS: BASOPHILS # (AUTO) 0.1 (0.0-0.1); BASOPHILS % 0.6 % (0.0-1.0); EOSINOPHILS # (AUTO) 0.7 (0.0-0.4); EOSINOPHILS % 5.7 % (0.0-6.0); HEMATOCRIT 28.7 % (34.2-44.1); HEMOGLOBIN 7.4 g/dL (12.0-16.0); LYMPHOCYTES % 16.3 % (18.0-39.1); MEAN CORPUSCULAR HEMOGLOBIN 16.6 pg (28-32); MEAN CORPUSCULAR HGB CONC 25.8 g/dL (31-35); MEAN CORPUSCULAR VOLUME 64.3 fL (81-99); MONOCYTES # (AUTO) 0.8 (0.2-0.8); MONOCYTES % 6.8 % (4.4-11.3); NEUTROPHILS # (AUTO) 8.5 (2.1-6.9); PLATELET COUNT 368 x10e3/uL (140-360); RED BLOOD COUNT 4.46 x10e6/uL (3.6-5.1); RED CELL DISTRIBUTION WIDTH 20.9 % (11.7-14.4)
[2019-02-18] MEDS ORDERED: METHYLPREDNISOLONE SOD SUCC 125 MG/2ML VIAL IV ONE (13:30)
[2019-02-18 13:36] LABS: ALANINE AMINOTRANSFERASE 14 IU/L (0-55); ALBUMIN 3.9 g/dL (3.5-5.0); ALBUMIN/GLOBULIN RATIO 1.1 (0.8-2.0); ALKALINE PHOSPHATASE 84 IU/L (40-150); BLOOD UREA NITROGEN 10 mg/dL (7-26); BUN/CREATININE RATIO 16 (6-25); CALCIUM 9.1 mg/dL (8.4-10.2); CARBON DIOXIDE 24 mmol/L (22-29); CHLORIDE 104 mmol/L (98-107); CREATINE KINASE 34 IU/L (29-168); CREATININE, SERUM 0.63 mg/dL (0.57-1.11); EST GLOMERULAR FILTRATION RATE > 60 ML/MIN (60-); GLUCOSE 150 mg/dL (74-118); SODIUM 141 mmol/L (136-145)
[2019-02-18] MEDS ORDERED: KETOROLAC TROMETHAMINE 30 MG/ML VIAL IV ONE (13:45)
[2019-02-18 14:09] LABS: EOSINOPHILS % (MANUAL) 3 % (0-7); LYMPHOCYTES % (MANUAL) 19 % (19-48); MONOCYTES % (MANUAL) 3 % (3.4-9.0); NEUTROPHILS % (MANUAL) 72 % (40-74)
[2019-02-18 14:11] LABS: ANISOCYTOSIS MODERATE; HYPOCHROMASIA MODERATE; POIKILOCYTOSIS SLIGHT; RBC MORPHOLOGY COMMENT ABNORMAL
[2019-02-18 14:12] LABS: PLATELET ESTIMATE ADEQUATE; PLATELET MORPHOLOGY COMMENT MANY GIANT
--- NOTE | 2019-02-18 14:12 | NUR ---
pain med given--30mg iv toradol. per pt, "i've had lidocaine patches on my back and they don't work."
[2019-02-18 14:33] LABS: BILIRUBIN,URINE NEGATIVE (NEGATIVE); CLARITY,URINE CLEAR (CLEAR); COLOR,URINE YELLOW (YELLOW); KETONES,URINE NEGATIVE (NEGATIVE); LEUKOCYTE ESTERASE ,URINE NEGATIVE (NEGATIVE); NITRITE,URINE NEGATIVE (NEGATIVE); PROTEIN,URINE DIPSTICK NEGATIVE (NEGATIVE); URINE UROBILINOGEN 0.2 mg/dL (0.2 - 1)
[2019-02-18 14:38] LABS: AMPHETAMINES SCREEN,URINE NEGATIVE (NEGATIVE); BENZODIAZEPINES SCREEN,URINE NEGATIVE (NEGATIVE); PHENCYCLIDINE SCREEN,URINE NEGATIVE (NEGATIVE)
[2019-02-18 14:48] LABS: EPITHELIAL CELLS,URINE FEW /LPF
[2019-02-18 14:49] LABS: YEAST,URINE MANY
[2019-02-18] MEDS ORDERED: AZITHROMYCIN 500MG/SOD CHL 0.9% 250ML BAG IV SCH (15:00)
[2019-02-18] MEDS: ALBUTEROL/IPRATROPIUM 3 ML NEB NEB SCH ×4 (15:00→23:45)
--- OUTSIDE RECORDS SUMMARY | 2019-02-18 15:10 | XMS REPORT | Continuity of Care Document ---
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 Phone [employer] Unavailable Unavailable Problems Problem Status Onset Date Classification Date Reported Comments Source PVD Active 04/30/2015 [facility] FALL/ WEAKNESS Active 04/13/2015 [facility] SYNCOPE Active 04/13/2015 [facility] LOWER ABDOMINAL PAIN/BACK PAIN Active 05/20/2013 [facility] RIGHT SIDE PYELONEPHRITIS Active 05/20/2013 [facility] UNK Active 05/09/2013 [facility] DIVERTICULITIS Active 04/01/2003 [facility] Acid reflux Resolved Problem 05/06/2015 [facility] [place] Anxiety depression Active Problem 05/06/2015 [facility] [place] COPD - Chronic obstructive pulmonary disease Active Problem 05/06/2015 [facility] [place] Cough Active Problem 05/06/2015 [facility] [place] Diabetes mellitus Active Problem 05/06/2015 [facility] [place] Diverticulitis Active Problem 05/06/2015 [facility] [place] HTN - Hypertension Active Problem 05/06/2015 [facility] [place] Neuropathy Active Problem 05/06/2015 [facility] [place] Osteoarthritis Active Problem 05/06/2015 [facility] [place] Pneumonia1 Resolved Problem 05/06/2015 last episode 8 yrs ago [facility] [place] SOB - Shortness of breath Active Problem 05/06/2015 [facility] [place] MICROSCOPIC HEMATURIA Active [facility] [employer] BE[employer]AV RUSTAM BLADDER Active [facility] SYNCOPE AND COLLAPSE Active [facility] Medications Medication Details Route Status Patient Instructions Ordering Provider Order Date Source budesonide-formoterol 160 mcg-4.5 mcg/inh inhalation aerosol with adapter 2 puff, Route: INHALATION, Drug Form: AERO/A, Dosing Weight 67.273, kg, BID, Start date: 04/18/15 14:48:00, Duration: 30 day, Stop date: 05/18/15 9:00:00Notes: (Same as: Symbicort) Inactive 04/18/2015 [facility] Nitroglycerin 0.4 mg, 1 tab, Route: SL, Drug form: TAB, Q5Min, Dosing Weight 63.182, kg, PRN Chest Pain, Start date: 04/18/15 10:06:00, Duration: 3 doses or times, Stop date: Limited # of timesNotes: (Same as:Nitroqu ick, Nitrostat) "Do Not Crush" Sublingual tablet Inactive 04/18/2015 [facility] Metformin 500 mg, 1 tab, Route: PO, Drug form: TAB, Lunch, Dosing Weight 67.273, kg, Start date: 04/17/15 12:00:00, Duration: 30 day, Stop date: 05/16/15 12:00:00Notes: (Same as: Glucophage) Take with meal No Longer Active 04/17/2015 [facility] Ativan 1 mg, Route: IVP, Drug form: INJ, ONCE, Dosing Weight 63.182, kg, PRN Anxiety, Start date: 04/17/15 11:28:00 Inactive 04/17/2015 [facility] Restoril 15 mg, 1 cap, Route: PO, Drug form: CAP, Bedtime, Dosing Weight 63.182, kg, PRN Sleep, Start date: 04/16/15 23:49:00, Duration: 30 day, Stop date: 05/16/15 23:48:00Notes: (Same As: Restoril) No Longer Active 04/17/2015 [facility] Haldol 5 mg, 1 mL, Route: IM, Drug form: INJ, ONCALL, Dosing Weight 63.182, kg, Start date: 04/16/15 13:00:00Notes: (Same as: Haldol) Inactive 04/16/2015 [facility] Ativan 1 mg, 0.5 mL, Route: IV, Drug form: INJ, ONCALL, Dosing Weight 63.182, kg, PRN Other -See Comment, Start date: 04/16/15 12:55:00, Duration: 30 day, Stop date: 05/16/15 12:54:00Notes: (Same as: Ativan) No Longer Active 04/16/2015 [facility] Protonix 40 mg, 1 tab, Route: PO, Drug form: ECTAB, Before Breakfast, Start date: 04/16/15 7:30:00, Duration: 30 day, Stop date: 05/15/15 7:30:00Notes: Tablet should not be chewed or crushed. (Same as: Protonix) No Longer Active 04/16/2015 [facility] atorvastatin 20 mg, 2 tab, Route: PO, Drug form: TAB, Bedtime, Dosing Weight 67.273, kg, Start date: 04/14/15 21:00:00, Duration: 30 day, Stop date: 05/13/15 21:00:00Notes: (Same As: Lipitor) No Longer Active 04/15/2015 [facility] Haldol 5 mg, 1 mL, Route: IM, Drug form: INJ, ONCE, Dosing Weight 63.182, kg, PRN Other -See Comment, Administer prior to MRI/MRA, Start date: 04/14/15 17:45:00, ClaustrophobiaNotes: (Same as: Haldol) No Longer Active 04/14/2015 [facility] Ativan 1 mg, 0.5 mL, Route: IVP, Drug form: INJ, ONCE, Dosing Weight 63.182, kg, PRN Other -See Comment, Administer prior to MRI/MRA, Start date: 04/14/15 17:45:00, ClaustrophobiaNotes: (Same as: Ativan) No Longer Active 04/14/2015 [facility] Ativan 0.5 mg, 0.25 mL, Route: IVP, Drug form: INJ, ONCE, Dosing Weight 63.182, kg, PRN Other -See Comment, At time of MRI if needed, Start date: 04/14/15 15:25:00, MRINotes: (Same as: Ativan) Inactive 04/14/2015 [facility] Ativan 0.5 mg, 0.25 mL, Route: IVP, Drug form: INJ, ONCE, Dosing Weight 63.182, kg, PRN Other -See Comment, once prior to MRI, Start date: 04/14/15 15:22:00, MRINotes: (Same as: Ativan) Inactive 04/14/2015 [facility] Glipizide 5 MG Oral Tablet 5 mg, 1 tab, Route: PO, Drug form: TAB, Lunch, Dosing Weight 67.273, kg, Start date: 04/14/15 12:00:00, Duration: 30 day, Stop date: 05/13/15 12:00:00Notes: (Same as: Glucotrol) 30 min before meals. No Longer Active 04/14/2015 [facility] Metformin 1,000 mg, 2 tab, Route: PO, Drug form: TAB, Lunch, Dosing Weight 67.273, kg, Start date: 04/14/15 12:00:00, Duration: 30 day, Stop date: 05/13/15 12:00:00Notes: (Same as: Glucophage) Take with meal No Longer Active 04/14/2015 [facility] metoprolol tartrate 25 mg, 1 tab, Route: PO, Drug form: TAB, Q12H, Dosing Weight 67.273, kg, Start date: 04/14/15 9:00:00, Duration: 30 day, Stop date: 05/13/15 21:00:00Notes: (Same as: Lopressor) No Longer Active 04/14/2015 [facility] Spiriva 18 microgram, 1 inhalation, Route: INHALATION, Drug form: CAP, Daily, Dosing Weight 67.273, kg, Start date: 04/14/15 9:00:00, Duration: 30 day, Stop date: 05/13/15 9:00:00Notes: (Same As: Spiriva). No Longer Active 04/14/2015 [facility] Symbicort 160/4.5 inhalation aerosol with adapter 2 puff, Route: INHALATION, Drug Form: AERO/A, Dosing Weight 67.273, kg, BID, Start date: 04/14/15 9:00:00, Duration: 30 day, Stop date: 05/13/15 17:00:00Notes: (Same as: Symbicort) No Longer Active 04/14/2015 [facility] clopidogrel 75 mg, 1 tab, Route: PO, Drug form: TAB, Daily, Dosing Weight 67.273, kg, Start date: 04/14/15 9:00:00, Duration: 30 day, Stop date: 05/13/15 9:00:00Notes: (Same As: Plavix) No Longer Active 04/14/2015 [facility] Losartan 100 mg, 2 tab, Route: PO, Drug form: TAB, Daily, Dosing Weight 67.273, kg, Start date: 04/14/15 9:00:00, Duration: 30 day, Stop date: 05/13/15 9:00:00Notes: (Same as: Cozaar) No Longer Active 04/14/2015 [facility] Naproxen 500 mg, 2 tab, Route: PO, Drug form: TAB, [id number], Dosing Weight 63.182, kg, Start date: 04/14/15 2:00:00, Stop date: 05/13/15 14:00:00Notes: (Same as: Naprosyn) Take with food. No Longer Active 04/14/2015 [facility] Nitroglycerin 0.4 MG Sublingual Tablet 0.4 mg, 1 tab, Route: SL, Drug form: TAB, Q5Min, Dosing Weight 63.182, kg, PRN Chest Pain, Start date: 04/14/15 1:43:00, Duration: 30 day, Stop date: 05/14/15 1:42:00Notes: (Same as:Nitroquick, Nitrostat) "Do Not Crush" Sublingual tablet No Longer Active 04/14/2015 [facility] Atropine 0.5 mg, 5 mL, Route: IVP, Drug form: INJ, ONCE, Dosing Weight 63.182, kg, PRN Bradycardia, Start date: 04/14/15 1:43:00, symptomatic bradycardia HR No Longer Active 04/14/2015 [facility] Insulin, Aspart, Human 2 unit, 0.02 [...] days from Date No Longer Active 04/14/2015 [facility] Glucagon 1 mg, Route: IM, Drug form: PDR/INJ, PRN, Dosing Weight 63.182, kg, PRN Blood Glucose Results, Start date: 04/14/15 1:41:00, Duration: 30 day, Stop date: 05/14/15 1:40:00 No Longer Active 04/14/2015 [facility] Dextrose 50% Syringe 25 gm, 50 mL, Route: IVP, Drug Form: INJ, Dosing Weight 63.182, kg, PRN, PRN Blood Glucose Results, Start date: 04/14/15 1:41:00, Duration: 30 day, Stop date: 05/14/15 1:40:00 No Longer Active 04/14/2015 [facility] pantoprazole 40 mg, Route: IVP, Drug form: INJ, Daily, Dosing Weight 67.273, kg, Priority: STAT, Start date: 04/14/15 1:38:00, Duration: 30 day, Stop date: 05/13/15 9:00:00Notes: For IV push reconstitute with 10 ml 0.9% sodium chloride and push over 2 minutes. (Same as: Protonix) No Longer Active 04/14/2015 [facility] Albuterol 0.833 MG/ML / Ipratropium Pollock 0.167 MG/ML Inhalant Solution [DuoNeb] 3 ml, Route: INHALATION, Drug Form: SOLN, Dosing Weight 67.273, kg, PRN, PRN Respiratory Protocol, Start date: 04/14/15 1:38:00, Duration: 30 day, Stop date: 05/14/15 1:37:00Notes: (Same as: Duoneb) No Longer Active 04/14/2015 [facility] Morphine 4 mg, 2 mL, Route: IVP, Drug form: INJ, Q3H, Dosing Weight 67.273, kg, PRN Pain Score 4-6, Start date: 04/14/15 1:38:00, Duration: 30 day, Stop date: 05/14/15 1:37:00Notes: (Same as:MORPhine Sulfate) No Longer Active 04/14/2015 [facility] Ondansetron 4 mg, 2 mL, Route: IVP, Drug form: INJ, Q6H, Dosing Weight 63.182, kg, PRN Nausea & Vomiting, Start date: 04/14/15 1:38:00, Duration: 30 day, Stop date: 05/14/15 1:37:00Notes: (Same as: Kentrell) MEDICATION WASTE Product Size: 4 mg Product Wasted: ___ mg No Longer Active 04/14/2015 [facility] Acetaminophen 650 mg, 2 tab, Route: PO, Drug form: TAB, Q4H, Dosing Weight 63.182, kg, PRN Pain 1-3/Temp > 100.4 F, Start date: 04/14/15 1:38:00, Duration: 30 day, Stop date: 05/14/15 1:37:00Notes: Do not exceed 4 gm/day. (Same as: Tylenol) No Longer Active 04/14/2015 [facility] Sodium Chloride 0.154 MEQ/ML Injectable Solution 1,000 mL, Rate: 75 ml/hr, Infuse over: 13.3 hr, Route: IV, Dosing Weight 63.182 kg, Total Volume: 1,000, Start date: 04/14/15 1:38:00, Duration: 30 day, Stop date: 05/14/15 1:37:00 No Longer Active 04/14/2015 [facility] Saline Flush 0.9% 10 ml, Route: IVP, Drug Form: INJ, Dosing Weight 63.182, kg, PRN, PRN Line Flush, Start date: 04/14/15 1:38:00, Duration: 30 day, Stop date: 05/14/15 1:37:00Notes: (Same as: BD Posiflush) No Longer Active 04/14/2015 [facility] tramadol hydrochloride 50 MG Oral Tablet 50 mg, 1 tab, Route: PO, Drug form: TAB, Q6H, Dosing Weight 67.273, kg, PRN Pain Score 1-5, Start date: 04/14/15 0:02:00, Duration: 30 day, Stop date: 05/14/15 0:01:00Notes: Not to exceed 400mg/day. (Same As: Ultram) No Longer Active 04/14/2015 [facility] Acetaminophen 325 MG / butalbital 50 MG / Caffeine 40 MG Oral Tablet 1 tab, Route: PO, Drug Form: TAB, Dosing Weight 67.273, kg, Q4H, PRN Headache 1-5, Start date: 04/14/15 0:02:00, Duration: 30 day, Stop date: 05/14/15 0:01:00Notes: ([id number]-wzqxwfnsew-xvyyixhm 325-50-40mg) Do not exceed 4 gm/day of acetaminophen. (Same as: Esgic, Fioricet) No Longer Active 04/14/2015 [facility] 200 ACTUAT Albuterol 0.09 MG/ACTUAT Metered Dose Inhaler [ProAir HFA] 2 puff, Route: INHALATION, Drug Form: AERO/A, Dosing Weight 67.273, kg, Q6H, PRN Wheezing, Start date: 04/14/15 0:02:00, Duration: 30 day, Stop date: 05/14/15 0:01:00Notes: Albuterol 90 microgram/inh 8gm HFA Same as: Ventolin, Proventil No Longer Active 04/14/2015 [facility] Acetaminophen 325 MG / butalbital 50 MG / Caffeine 40 MG Oral Tablet 1 tab, PO, Q4H, PRN Headache, Not to exceed more than 6 tablets in 24 hoursSpecial Instructions: Not to exceed more than 6 tablets in 24 hours Active 04/14/2015 [facility] atorvastatin 20 mg oral tablet 20 mg=1 tab, PO, Bedtime Active 04/14/2015 [facility] clopidogrel 75 mg oral tablet 75 mg=1 tab, PO, Daily Active 04/14/2015 [facility] losartan 100 mg oral tablet 100 mg=1 tab, PO, Daily Active 04/14/2015 [facility] Metoprolol Tartrate 25 mg oral tablet 25 mg=1 tab, PO, BID Active 04/14/2015 [facility] Symbicort 160/4.5 inhalation aerosol with adapter 2 puff, INHALATION, BID Active 04/14/2015 [facility] metFORmin 500 mg, PO, BID, Substitution Allowed Active 05/22/2013 [facility] simvastatin 20 mg, 1 tab, Route: PO, Drug form: TAB, Bedtime, Dosing Weight 65.909, kg, Start date: 05/21/13 21:00:00, Duration: 30 day, Stop date: 06/19/13 21:00:00(Same as: Zocor) No Longer Active Alex 05/22/2013 [facility] ketorolac 10 mg, 0.33 mL, Route: INJ, Drug form: INJ, Q6H, Dosing Weight 67.273, kg, Start date: 05/21/13 12:00:00, Duration: 4 day, Stop date: 05/25/13 6:00:00(Same as:Toradol) IV bolus must be given >15 seconds. Give IM administration slowly and deeply into the muscle. Not for use > 4 days No Longer Active Marcella 05/21/2013 [facility] pneumococcal 23-valent vaccine 0.5 ml, Route: IM, Drug Form: INJ, Start date: 05/21/13 9:00:00, Stop date: 05/21/13 9:00:00 Inactive SYSTEM 05/21/2013 [facility] influenza virus vaccine, inactivated 0.5 ml, Route: IM, Drug Form: SUSP, Start date: 05/21/13 9:00:00, Stop date: 05/21/13 9:00:00 Inactive SYSTEM 05/21/2013 [facility] Lyrica 50 mg, 1 cap, Route: PO, Drug form: CAP, TID, Dosing Weight 65.909, kg, Start date: 05/21/13 9:00:00, Duration: 30 day, Stop date: 06/19/13 17:00:00Same as Lyrica No Longer Active Alex 05/21/2013 [facility] Pyridium 100 mg, 1 tab, Route: PO, Drug form: TAB, TID, Dosing Weight 65.909, kg, Start date: 05/21/13 9:00:00, Duration: 30 day, Stop date: 06/19/13 17:00:00Give with meals. (Same as: Pyridium) No Longer Active Alex 05/21/2013 [facility] Spiriva 18 microgram, 1 inhalation, Route: INHALATION, Drug form: CAP, Daily, Dosing Weight 65.909, kg, Start date: 05/21/13 9:00:00, Duration: 30 day, Stop date: 06/19/13 9:00:00(Same As: Spiriva). No Longer Active Alex 05/21/2013 [facility] metFORmin 1000 mg oral tablet 1,000 mg, 2 tab, Route: PO, Drug form: TAB, BID, Dosing Weight 65.909, kg, Start date: 05/21/13 9:00:00, Duration: 30 day, Stop date: 06/19/13 17:00:00(Same as: Glucophage) Take with meal No Longer Active Jeffery 05/21/2013 [facility] glipiZIDE 5 mg oral tablet 5 mg, 1 tab, Route: PO, Drug form: TAB, Daily, Dosing Weight 65.909, kg, Start date: 05/21/13 9:00:00, Duration: 30 day, Stop date: 06/19/13 9:00:00(Same as: Glucotrol) 30 min before meals. No Longer Active Alex 05/21/2013 [facility] amLODipine 2.5 mg, 1 tab, Route: PO, Drug form: TAB, Daily, Dosing Weight 65.909, kg, Start date: 05/21/13 9:00:00, Duration: 30 day, Stop date: 06/19/13 9:00:00(Same as: Norvasc) No Longer Active Alex 05/21/2013 [facility] Sodium Chloride 0.9% IV 1,000 mL 1,000 mL, Rate: 150 ml/hr, Infuse over: 6.7 hr, Route: IV, Dosing Weight 67.273 kg, Total Volume: 1,000, Start date: 05/20/13 22:31:00, Duration: 30 day, Stop date: 06/19/13 22:30:00 No Longer Active Alex 05/21/2013 [facility] Sodium Chloride 0.9% IV 1,000 mL 1,000 mL, Rate: 150 ml/hr, Infuse over: 6.7 hr, Route: IV, Dosing Weight 65.909 kg, Total Volume: 1,000, Start date: 05/20/13 22:29:00, Duration: 30 day, Stop date: 06/19/13 22:28:00 Inactive Alex 05/21/2013 [facility] acetaminophen 650 mg, 20.3 mL, Route: PO, Drug form: LIQ, Q4H, Dosing Weight 65.909, kg, PRN Pain 1-3/Temp > 100.4 F, Start date: 05/20/13 22:22:00, Duration: 30 day, Stop date: 06/19/13 22:21:00Max vmzjmysuzzqza=5481uu/day (4 gm/day). (Same as: Tylenol) No Longer Active Alex 05/21/2013 [facility] ondansetron 4 mg, 2 mL, Route: IVP, Drug form: INJ, Q8H, Dosing Weight 65.909, kg, PRN Nausea & Vomiting, Start date: 05/20/13 22:22:00, Duration: 30 day, Stop date: 06/19/13 22:21:00(Same as: Zofran) No Longer Active Alex 05/21/2013 [facility] glucagon 1 mg, Route: IM, Drug form: PDR/INJ, PRN, Dosing Weight 65.909, kg, PRN Blood Glucose Results, Start date: 05/20/13 22:20:00, Duration: 30 day, Stop date: 06/19/13 21:19:00 No Longer Active Alex 05/21/2013 [facility] insulin aspart 8 unit, 0.08 mL, [...] from Date No Longer Active Alex 05/21/2013 [facility] Dextrose 50% Syringe 25 gm, 50 mL, Route: IVP, Drug Form: INJ, Dosing Weight 65.909, kg, PRN, PRN Blood Glucose Results, Start date: 05/20/13 22:20:00, Duration: 30 day, Stop date: 06/19/13 21:19:00 No Longer Active Alex 05/21/2013 [facility] ProAir HFA 90 mcg/inh inhalation aerosol with adapter 2 puff, Route: INHALATION, Drug Form: AERO/A, Dosing Weight 65.909, kg, Q6H, PRN as needed for wheezing, Start date: 05/20/13 22:20:00, Duration: 30 day, Stop date: 06/19/13 22:19:00Albuterol 90 microgram/inh 8gm HFA Same as: Ventolin Proventil No Longer Active Alex 05/21/2013 [facility] insulin aspart 6 unit, 0.06 mL, [...] from Date No Longer Active Alex 05/21/2013 [facility] morphine Sulfate 1 mg, 0.5 mL, Route: IVP, Drug form: INJ, Q4H, Dosing Weight 65.909, kg, PRN Pain Score 4-6, Start date: 05/20/13 22:19:00, Duration: 30 day, Stop date: 06/19/13 22:18:00(Same as:MORPhine Sulfate) No Longer Active Alex 05/21/2013 [facility] hydrALAZINE 10 mg, 0.5 mL, Route: IVP, Drug form: INJ, Q6H, Dosing Weight 65.909, kg, PRN Other -See Comment, Start date: 05/20/13 22:19:00, Duration: 30 day, Stop date: 06/19/13 22:18:00, SBP > 170(Same as: Apr esoline) No Longer Active Alex 05/21/2013 [facility] DuoNeb inhalation solution 3 ml, Route: INHALATION, Drug Form: SOLN, Dosing Weight 65.909, kg, PRN, PRN Respiratory Protocol, Start date: 05/20/13 22:19:00, Duration: 30 day, Stop date: 06/19/13 21:18:00(Same as: Duoneb) No Longer Active Alex 05/21/2013 [facility] Dextrose 50% Syringe 12.5 gm, 25 mL, Route: IVP, Drug Form: INJ, Dosing Weight 65.909, kg, PRN, PRN Blood Glucose Results, Start date: 05/20/13 22:19:00, Duration: 30 day, Stop date: 06/19/13 21:18:00 No Longer Active Alex 05/21/2013 [facility] Saline Flush 0.9% 5 ml, Route: IVP, Drug Form: INJ, Dosing Weight 65.909, kg, PRN, PRN Line Flush, Start date: 05/20/13 22:19:00, Duration: 30 day, Stop date: 06/19/13 21:18:00(Same as: BD Posiflush) No Longer Active Alex 05/21/2013 [facility] Sodium Chloride 0.9% IV 1,000 mL 1,000 mL, Rate: 125 ml/hr, Infuse over: 8 hr, Route: IV, Dosing Weight 65.909 kg, Total Volume: 1,000, Start date: 05/20/13 22:19:00, Duration: 30 day, Stop date: 06/19/13 22:18:00 Inactive White 05/21/2013 [facility] simvastatin 20 mg, 1 tab, Route: PO, Drug form: TAB, Bedtime, Dosing Weight 65.909, kg, Start date: 05/20/13 21:00:00, Duration: 30 day, Stop date: 06/18/13 21:00:00(Same as: Zocor) Inactive Alex 05/21/2013 [facility] hydrALAZINE 10 mg, 0.5 mL, Route: IVP, Drug form: INJ, Q6H, Dosing Weight 65.909, kg, PRN Other -See Comment, Start date: 05/20/13 20:52:00, Duration: 30 day, Stop date: 06/19/13 20:51:00, SBP > 170(Same as: Apr esoline) Inactive Alex 05/21/2013 [facility] DuoNeb inhalation solution 3 ml, Route: INHALATION, Drug Form: SOLN, Dosing Weight 65.909, kg, PRN, PRN Respiratory Protocol, Start date: 05/20/13 20:52:00, Duration: 30 day, Stop date: 06/19/13 19:51:00(Same as: Duoneb) Inactive Alex 05/21/2013 [facility] Sodium Chloride 0.9% IV 1,000 mL 1,000 mL, Rate: 125 ml/hr, Infuse over: 8 hr, Route: IV, Dosing Weight 65.909 kg, Total Volume: 1,000, Start date: 05/20/13 20:52:00, Duration: 30 day, Stop date: 06/19/13 20:51:00 Inactive Alex 05/21/2013 [facility] Saline Flush 0.9% 5 ml, Route: IVP, Drug Form: INJ, Dosing Weight 65.909, kg, PRN, PRN Line Flush, Start date: 05/20/13 20:52:00, Duration: 30 day, Stop date: 06/19/13 19:51:00(Same as: BD Posiflush) Inactive Alex 05/21/2013 [facility] morphine Sulfate 1 mg, 0.5 mL, Route: IVP, Drug form: INJ, Q4H, Dosing Weight 65.909, kg, PRN Pain Score 4-6, Start date: 05/20/13 20:52:00, Duration: 30 day, Stop date: 06/19/13 20:51:00(Same as:MORPhine Sulfate) Inactive Alex 05/21/2013 [facility] ondansetron 4 mg, 2 mL, Route: IVP, Drug form: INJ, Q8H, Dosing Weight 65.909, kg, PRN Nausea & Vomiting, Start date: 05/20/13 20:52:00, Duration: 30 day, Stop date: 06/19/13 20:51:00(Same as: Zofran) Inactive Alex 05/21/2013 [facility] acetaminophen 650 mg, 20.3 mL, Route: PO, Drug form: LIQ, Q4H, Dosing Weight 65.909, kg, PRN Pain 1-3/Temp > 100.4 F, Start date: 05/20/13 20:52:00, Duration: 30 day, Stop date: 06/19/13 20:51:00Max jgncnqhysriad=2688pb/day (4 gm/day). (Same as: Tylenol) Inactive Alex 05/21/2013 [facility] ProAir HFA 90 mcg/inh inhalation aerosol with adapter 180 microgram, Route: INHALATION, Drug Form: AERO/A, Dosing Weight 65.909, kg, Q6H, PRN as needed for wheezing, Start date: 05/20/13 20:50:00, Duration: 30 day, Stop date: 06/19/13 20:49:00Albuterol 90 microgram/inh 8gm HFA Same as: Ventshad Proventil Inactive Alex 05/21/2013 [facility] insulin aspart 2 unit, 0.02 mL, [...] in days from Date Inactive Alex 05/21/2013 [facility] Dextrose 50% Syringe 12.5 gm, 25 mL, Route: IVP, Drug Form: INJ, Dosing Weight 65.909, kg, PRN, PRN Blood Glucose Results, Start date: 05/20/13 20:50:00, Duration: 30 day, Stop date: 06/19/13 19:49:00 Inactive Alex 05/21/2013 [facility] glucagon 1 mg, Route: IM, Drug form: PDR/INJ, PRN, Dosing Weight 65.909, kg, PRN Blood Glucose Results, Start date: 05/20/13 20:50:00, Duration: 30 day, Stop date: 06/19/13 19:49:00 Inactive Alex 05/21/2013 [facility] acetaminophen 650 mg, 2 tab, Route: PO, Drug form: TAB, ONCE, Dosing Weight 65.909, kg, Priority: STAT, Start date: 05/20/13 20:42:00, Stop date: 05/20/13 20:42:00Do not exceed 4 gm/day. (Same as: Tylenol) Inactive White 05/21/2013 [facility] Dextrose 50% Syringe 50 mL, Route: IVP, Dosing Weight 65.909, kg, PRN, PRN Blood Glucose Results, Start date: 05/20/13 20:39:00, Duration: 30 day, Stop date: 06/19/13 19:38:00 Inactive White 05/21/2013 [facility] glucagon 1 mg, Route: IM, PRN, Dosing Weight 65.909, kg, PRN Blood Glucose Results, Start date: 05/20/13 20:39:00, Duration: 30 day, Stop date: 06/19/13 19:38:00 Inactive White 05/21/2013 [facility] insulin aspart 10 unit, Route: SUB-Q, TID-Before Meals, Dosing Weight 65.909, kg, PRN Blood Glucose Results, Start date: 05/20/13 20:39:00, Duration: 30 day, Stop date: 06/19/13 20:38:00 Inactive White 05/21/2013 [facility] ceftriaxone + Sodium Chloride 0.9% IV 100 mL 1 gm, Route: IVPB, [id number], Dosing Weight 65.909, kg, Priority: STAT, Start date: 05/20/13 19:23:00, Duration: 30 day, Stop date: 06/18/13 19:23:00(Same As: Rocephin). Use with 100ml NS mini-bag PLUS and infuse over 30 min No Longer Active [place] 05/21/2013 [facility] gentamicin 80 mg, 100 mL, Route: IVPB, Drug form: INJ, [id number], Dosing Weight 65.909, kg, Priority: STAT, Start date: 05/20/13 19:21:00, Duration: 30 day, Stop date: 06/19/13 15:00:00(Same as Garamycin) No Longer Active [place] 05/21/2013 [facility] Dilaudid 0.5 mg, Route: IV, ONCE, Dosing Weight 65.909, kg, Start date: 05/20/13 17:30:00, Stop date: 05/20/13 17:30:00 Inactive [place] 05/20/2013 [facility] ondansetron 4 mg, Route: IVP, ONCE, Dosing Weight 65.909, kg, Priority: STAT, Start date: 05/20/13 16:03:00, Stop date: 05/20/13 16:03:00 Inactive [place] 05/20/2013 [facility] pantoprazole 40 mg, Route: IVP, ONCE, Dosing Weight 65.909, kg, For IV push reconstitute with 10 ml 0.9% sodium chloride and push over at least 3 minutes, Priority: STAT, Start date: 05/20/13 16:03:00, Stop date: 05/20/13 16:03:00 Inactive [place] 05/20/2013 [facility] GI cocktail 30 mL, Route: PO, Dosing Weight 65.909, kg, ONCE, STAT, Start date: 05/20/13 16:03:00, Stop date: 05/20/13 16:03:00 Inactive [place] 05/20/2013 [facility] morphine Sulfate 4 mg, Route: IVP, ONCE, Dosing Weight 65.909, kg, Priority: STAT, Start date: 05/20/13 16:03:00, Stop date: 05/20/13 16:03:00 Inactive [place] 05/20/2013 [facility] Saline Flush 0.9% 5 mL, Route: IVP, Drug Form: INJ, Dosing Weight 65.909, kg, PRN, PRN Line Flush, Start date: 05/20/13 16:03:00, Duration: 24 hr, Stop date: 05/21/13 16:02:00(Same as: BD Posiflush) Inactive [place] 05/20/2013 [facility] Pyridium 200 mg, Route: PO, ONCE, Dosing Weight 65.909, kg, Start date: 05/20/13 10:08:00, Stop date: 05/20/13 10:08:00 Inactive [place] 05/20/2013 [facility] tramadol 50 mg oral tablet 1 tab, Route: PO, Drug form: TAB, ONCE, Dosing Weight 65.909, kg, Start date: 05/20/13 10:07:00, Stop date: 05/20/13 10:07:00 Inactive [place] 05/20/2013 [facility] ondansetron 4 mg, 2 mL, Route: IVP, Drug form: INJ, ONCE, Dosing Weight 65.909, kg, PRN Nausea & Vomiting, Start date: 05/20/13 8:53:00(Same as: Zofran) Inactive [place] 05/20/2013 [facility] flumazenil 0.2 mg, 2 mL, Route: IVP, Drug form: INJ, PRN, Dosing Weight 65.909, kg, PRN Benzodiazepine Reversal, Initial dose, Start date: 05/20/13 8:53:00, Duration: 30 day, Stop date: 06/19/13 7:52:00(Same as: Romazicon) Inactive [place] 05/20/2013 [facility] naloxone 0.04 mg, 0.1 mL, Route: IVP, Drug form: INJ, Q2MIN, Dosing Weight 65.909, kg, PRN Narcotic Reversal, Start date: 05/20/13 8:53:00, Duration: 8 doses or times, Stop date: Limited # of times(Same as: Narcan) Inactive [facility] 05/20/2013 [facility] meperidine 12.5 mg, 0.25 mL, Route: IVP, Drug form: INJ, Q30Min, Dosing Weight 65.909, kg, PRN Other -See Comment, For shivering, Start date: 05/20/13 8:53:00, Duration: 2 doses or times, Stop date: Limited # of times(Same As: Demerol) Inactive [facility] 05/20/2013 [facility] hydromorphone 0.5 mg, 0.5 mL, Route: IVP, Drug form: INJ, Q5Min, Dosing Weight 65.909, kg, PRN Pain Score 7-10, Start date: 05/20/13 8:53:00, Duration: 5 doses or times, Stop date: Limited # of times Inactive [facility] 05/20/2013 [facility] fentanyl 25 microgram, Route: IVP, Q5Min, Dosing Weight 65.909, kg, PRN Pain Score 4-6, Start date: 05/20/13 8:53:00, Duration: 4 doses or times, Stop date: Limited # of times Inactive [facility] 05/20/2013 [facility] acetaminophen-hydrocodone 325 mg-5 mg oral tablet 2 tab, Route: PO, Drug Form: TAB, Dosing Weight 65.909, kg, Q4H, PRN Pain Score 4-6, Start date: 05/20/13 8:53:00, Duration: 30 day, Stop date: 06/19/13 8:52:00(Same as: [place] 325/5) Do not exceed 4gm/day of acetaminophen. Inactive [facility] 05/20/2013 [facility] tramadol 50 mg oral tablet 50 mg, 1 tab, PO, Q6H, PRN, 40 tab, Pain, Substitution Allowed, TAB Active [place] 05/20/2013 [facility] Pyridium 100 mg oral tablet 100 mg, 1 tab, PO, TID, 21 tab, Substitution Allowed, TAB Active [place] 05/20/2013 [facility] Bactrim DS oral tablet 1 tab, PO, BID, 14 tab, Substitution Allowed, Maintenance Active [place] 05/20/2013 [facility] morphine Sulfate 2 mg, 1 mL, Route: IVP, Drug form: INJ, Q3H, Dosing Weight 65.909, kg, PRN Pain Score 1-3, Start date: 05/20/13 8:38:00, Duration: 30 day, Stop date: 06/19/13 8:37:00(Same as:MORPhine Sulfate) Inactive [facility] 05/20/2013 [facility] gentamicin 120 mg, 100 mL, Route: IVPB, Drug form: INJ, ONCALL, Dosing Weight 65.909, kg, Start date: 05/20/13 7:00:00, Duration: 30 day, Stop date: 06/19/13 5:59:00(Same as Garamycin) Inactive [facility] 05/20/2013 [facility] Ancef + Sodium Chloride 0.9% IV 100 mL 1 gm, Route: IVPB, ONCALL, Dosing Weight 65.909, kg, Start date: 05/20/13 7:00:00, Duration: 30 day, Stop date: 06/19/13 5:59:00(Same As: Ancef, Kefzol) Inactive [facility] 05/20/2013 [facility] Lactated Ringers Injection IV 1,000 mL 1,000 mL, Rate: 25 ml/hr, Infuse over: 40 hr, Route: IV, Dosing Weight 65.909 kg, Total Volume: 1,000, Start date: 05/20/13 6:47:00, Duration: 30 day, Stop date: 06/19/13 6:46:00 Inactive [facility] 05/20/2013 [facility] tramadol 50 mg oral tablet 50 mg, 1 tab, PO, Q6H, PRN, 40 tab, Pain, Substitution Allowed, TAB Active 05/13/2013 [facility] simvastatin 20 mg oral tablet 20 mg, 1 tab, PO, Bedtime, 30 tab, Substitution Allowed Active [place] 05/13/2013 [facility] metFORmin 1000 mg oral tablet 1,000 mg, 1 tab, PO, BID, 30 tab, Substitution Allowed No Longer Active [place] 05/13/2013 [facility] glipiZIDE 5 mg oral tablet 5 mg, 1 tab, PO, Daily, 30 tab, Substitution Allowed Active [place] 05/13/2013 [facility] amLODipine 2.5 mg oral tablet 2.5 mg, 1 tab, PO, Daily, 30 tab, Substitution Allowed, TAB Active [place] 05/13/2013 [facility] ProAir HFA 90 mcg/inh inhalation aerosol with adapter 2 puff, INHALATION, Q6H, PRN, 9 gm, for wheezing, Substitution Allowed, Maintenance, AERO Active [place] 05/13/2013 [facility] Spiriva 18 microgram, INHALATION, Daily, Substitution Allowed Active [place] 05/13/2013 [facility] Lyrica 50 mg oral capsule 50 mg, 1 cap, PO, TID, Substitution Allowed, CAP Active [place] 05/13/2013 [facility] naproxen 500 mg oral tablet 500 mg, 1 tab, PO, BID, 60 tab, Substitution Allowed, TAB Active 05/13/2013 [facility] Allergies, Adverse Reactions, Alerts Substance Category Reaction Severity Reaction type Status Date Reported Comments Source CeleBREX Assertion Drug allergy Active [facility] [place] Crestor Assertion Drug allergy Active [facility] [place] HYDROcodone Assertion Drug allergy Active [facility] [place] Levaquin Assertion Drug allergy Active [facility] [place] Immunizations Immunization Date Given Site Status Last Updated Comments Source influenza virus vaccine, inactivated 05/21/2013 completed [facility] influenza virus vaccine, inactivated 05/21/2013 Right deltoid completed [facility]ent [facility] 05/21/2013 Not Given [facility] pneumococcal 23-valent vaccine 05/21/2013 [facility] Results Order Name Results Value Reference Range Date Interpretation Comments Source ELECTROLYTES AGAP 8.9 10.0 - 20.0 04/18/2015 [facility] ELECTROLYTES eGFR 95 04/18/2015 Result Comment: [...] should be multiplied by the estimated BMI. [facility] ELECTROLYTES Chloride Lvl 107 95 - 109 04/18/2015 [facility] ELECTROLYTES CO2 26 24 - 32 04/18/2015 [facility] ELECTROLYTES Calcium Lvl 8.5 8.5 - 10.5 04/18/2015 [facility] ELECTROLYTES BUN 13 7 - 22 04/18/2015 [facility] ELECTROLYTES Creatinine Lvl 0.6 0.5 - 1.4 04/18/2015 [facility] ELECTROLYTES Sodium Lvl 138 135 - 145 04/18/2015 [facility] ELECTROLYTES Potassium Lvl 3.9 3.5 - 5.1 04/18/2015 [facility] ELECTROLYTES Glucose Lvl 147 70 - 99 04/18/2015 [facility] HEMATOLOGY Hgb 13.1 12.0 - 16.0 04/18/2015 [facility] CARDIAC ENZYMES Total CK 51 12 - 191 04/14/2015 [facility] CARDIAC ENZYMES Troponin-I <0.02 0.00 - 0.40 04/14/2015 [facility] CARDIAC ENZYMES Total CK 53 12 - 191 04/14/2015 [facility] CARDIAC ENZYMES Troponin-I <0.02 0.00 - 0.40 04/14/2015 [facility] CHEM PANEL A/G Ratio 1.0 0.7 - 1.6 04/14/2015 [facility] CHEM PANEL Globulin 3.4 2.0 - 4.0 04/14/2015 [facility] CHEM PANEL B/C Ratio 23 6 - 25 04/14/2015 [facility] CHEM PANEL AGAP 8.1 10.0 - 20.0 04/14/2015 [facility] CHEM PANEL ALT 26 0 - 65 04/14/2015 [facility] CHEM PANEL Alk Phos 90 39 - 136 04/14/2015 [facility] CHEM PANEL Total Protein 6.9 6.4 - 8.4 04/14/2015 [facility] CHEM PANEL Bili Total 0.1 0.2 - 1.3 04/14/2015 [facility] CHEM PANEL Potassium Lvl 4.1 3.5 - 5.1 04/14/2015 [facility] CHEM PANEL Chloride Lvl 104 95 - 109 04/14/2015 [facility] CHEM PANEL Sodium Lvl 137 135 - 145 04/14/2015 [facility] CHEM PANEL BUN 14 7 - 22 04/14/2015 [facility] CHEM PANEL CO2 29 24 - 32 04/14/2015 [facility] CHEM PANEL Albumin Lvl 3.5 3.5 - 5.0 04/14/2015 [facility] CHEM PANEL eGFR 95 04/14/2015 Result [...] should be multiplied by the estimated BMI. [facility] CHEM PANEL Creatinine Lvl 0.6 0.5 - 1.4 04/14/2015 [facility] CHEM PANEL Glucose Lvl 172 70 - 99 04/14/2015 [facility] CHEM PANEL AST 11 0 - 37 04/14/2015 [facility] CHEM [facility] Calcium Lvl 8.4 8.5 - 10.5 04/14/2015 [facility] HEMATOLOGY RDW 12.7 11.5 - 14.5 04/14/2015 [facility] HEMATOLOGY Platelet 154 133 - 450 04/14/2015 [facility] HEMATOLOGY MCHC 32.0 32.0 - 36.0 04/14/2015 [facility] HEMATOLOGY MPV 12.2 7.4 - 10.4 04/14/2015 [facility] MCH 29.2 27.0 - 31.0 04/14/2015 [facility] HEMATOLOGY MCV 91.3 80.0 - 98.0 04/14/2015 [facility] Hgb 12.6 12.0 - 16.0 04/14/2015 [facility] RBC 4.33 4.20 - 5.40 04/14/2015 [facility] HEMATOLOGY Hct 39.5 36.0 - 48.0 04/14/2015 [facility] HEMATOLOGY WBC 10.6 3.7 - 10.4 04/14/2015 [facility] HEMATOLOGY Eosinophils 2.7 0.0 - 4.0 04/14/2015 [facility] HEMATOLOGY Basophils 0.3 0.0 - 1.0 04/14/2015 [facility] HEMATOLOGY Segs 53.6 45.0 - 75.0 04/14/2015 [facility] HEMATOLOGY Monocytes 6.0 2.0 - 12.0 04/14/2015 [facility] HEMATOLOGY Lymphocytes 37.4 20.0 - 40.0 04/14/2015 [facility] HEMATOLOGY Lymphocytes # 4.0 1.0 - 5.5 04/14/2015 [facility] HEMATOLOGY Segs-Bands # 5.7 1.5 - 8.1 04/14/2015 [facility] HEMATOLOGY Eosinophils # 0.3 0.0 - 0.5 04/14/2015 [facility] HEMATOLOGY Monocytes # 0.6 0.0 - 0.8 04/14/2015 [facility] CARDIAC ENZYMES Troponin-I <0.02 0.00 - 0.40 04/13/2015 [facility] CARDIAC ENZYMES Total CK 59 12 - 191 04/13/2015 [facility] CARDIAC ENZYMES CK MB 0.9 0.5 - 3.6 04/13/2015 [facility] CARDIAC ENZYMES BNP 14 <=100 pg/mL 04/13/2015 [facility] CARDIAC ENZYMES CK MB Index 1.5 0.0 - 2.5 04/13/2015 [facility] ELECTROLYTES Chloride Lvl 103 95 - 109 04/13/2015 [facility] ELECTROLYTES Potassium Lvl 3.8 3.5 - 5.1 04/13/2015 [facility] ELECTROLYTES Sodium Lvl 136 135 - 145 04/13/2015 [facility] ELECTROLYTES AGAP 9.8 10.0 - 20.0 04/13/2015 [facility] ELECTROLYTES Calcium Lvl 8.6 8.5 - 10.5 04/13/2015 [facility] ELECTROLYTES Creatinine Lvl 0.6 0.5 - 1.4 04/13/2015 [facility] ELECTROLYTES CO2 27 24 - 32 04/13/2015 [facility] ELECTROLYTES BUN 14 7 - 22 04/13/2015 [facility] ELECTROLYTES Glucose Lvl 267 70 - 99 04/13/2015 [facility] ELECTROLYTES eGFR 95 04/13/2015 Result Comment: [...] should be multiplied by the estimated BMI. [facility] HEMATOLOGY PTT 28.5 22.9 - 35.8 04/13/2015 [facility] HEMATOLOGY PT 13.1 12.0 - 14.7 04/13/2015 [facility] INR 0.96 0.85 - 1.17 04/13/2015 [facility] Hgb 13.2 12.0 - 16.0 04/13/2015 [facility] MPV 11.3 7.4 - 10.4 04/13/2015 [facility] Platelet 151 133 - 450 04/13/2015 [facility] MCHC 31.9 32.0 - 36.0 04/13/2015 [facility] MCH 29.4 27.0 - 31.0 04/13/2015 [facility] MCV 92.0 80.0 - 98.0 04/13/2015 [facility] Hct 41.2 36.0 - 48.0 04/13/2015 [facility] RBC 4.48 4.20 - 5.40 04/13/2015 [facility] WBC 11.3 3.7 - 10.4 04/13/2015 [facility] RDW 12.7 11.5 - 14.5 04/13/2015 [facility] Eosinophils # 0.3 0.0 - 0.5 04/13/2015 [facility] HEMATOLOGY Lymphocytes # 2.8 1.0 - 5.5 04/13/2015 [facility] Monocytes # 0.8 0.0 - 0.8 04/13/2015 [facility] Basophils 0.4 0.0 - 1.0 04/13/2015 [facility] Monocytes 7.1 2.0 - 12.0 04/13/2015 [facility] HEMATOLOGY Eosinophils 2.7 0.0 - 4.0 04/13/2015 [facility] HEMATOLOGY Lymphocytes 24.8 20.0 - 40.0 04/13/2015 [facility] HEMATOLOGY Segs-Bands # 7.4 1.5 - 8.1 04/13/2015 [facility] HEMATOLOGY RBC Morph Normal (04/13/15 5:40 PM) 04/13/2015 [facility] HEMATOLOGY Plt Morph Normal (04/13/15 5:40 PM) 04/13/2015 [facility] HEMATOLOGY Segs 65.0 45.0 - 75.0 04/13/2015 [facility] BEDSIDE GLUCOSE TESTING Glucose POC 140 70 - 99 05/22/2013 [place] <sup>1</sup>Interpretive Data: Upper Reportable Limit: 200 mg/dL. [facility] BEDSIDE GLUCOSE TESTING Gluc POC Comment 2 Cleaned Meter 05/22/2013 [facility] BEDSIDE GLUCOSE TESTING Glucose POC 130 70 - 99 05/22/2013 [place] <sup>2</sup>Interpretive Data: Upper Reportable Limit: 200 mg/dL. [facility] BEDSIDE GLUCOSE TESTING Gluc POC Comment 1 Notified RN/MD 05/22/2013 [facility] CHEMISTRY AGAP 13.9 10.0 - 20.0 05/22/2013 Normal [facility] CHEMISTRY eGFR 102 05/22/2013 <sup>4</sup>Result Comment: [...] should be multiplied by the estimated BMI. [facility] CHEMISTRY BUN 11 7 - 22 05/22/2013 Normal [facility] CHEMISTRY Glucose Lvl 147 70 - 99 05/22/2013 [place] <sup>6</sup>Interpretive Data: Adult reference range values reflect the clinical guidelines
of the [employer]. [facility] CHEMISTRY CO2 22 24 - 32 05/22/2013 LOW [facility] CHEMISTRY Creatinine Lvl 0.5 0.5 - 1.4 05/22/2013 Normal [facility] CHEMISTRY Calcium Lvl 8.1 8.5 - 10.5 05/22/2013 LOW [facility] CHEMISTRY Sodium Lvl 145 135 - 145 05/22/2013 Normal [facility] CHEMISTRY Potassium Lvl 3.9 3.5 - 5.1 05/22/2013 Normal [facility] CHEMISTRY Chloride Lvl 113 95 - 109 05/22/2013 [facility] HEMATOLOGY Hct 36.3 36.0 - 48.0 05/22/2013 Normal [facility] HEMATOLOGY MCV 93.6 81.0 - 99.0 05/22/2013 Normal [facility] HEMATOLOGY MCHC 31.7 32.0 - 36.0 05/22/2013 LOW [facility] HEMATOLOGY MCH 29.7 27.0 - 31.0 05/22/2013 Normal [facility] HEMATOLOGY RDW 14.4 11.5 - 14.5 05/22/2013 Normal [facility] HEMATOLOGY MPV 11.1 7.4 - 10.4 05/22/2013 [facility] HEMATOLOGY Platelet 156 133 - 450 05/22/2013 Normal [facility] HEMATOLOGY WBC X 10x3 10.1 3.7 - 10.4 05/22/2013 Normal [facility] HEMATOLOGY RBC X 10x6 3.87 4.20 - 5.40 05/22/2013 LOW [facility] HEMATOLOGY Hgb 11.5 12.0 - 16.0 [...] # 0.0 0.0 - 0.2 05/22/2013 Normal [facility] HEMATOLOGY Eosinophils # 0.2 0.0 - 0.5 05/22/2013 Normal [facility] BEDSIDE GLUCOSE TESTING Glucose POC 155 70 - 99 05/22/2013 [place] <sup>3</sup>Interpretive Data: Upper Reportable Limit: 200 mg/dL. [facility] HEMATOLOGY MPV 10.8 7.4 - 10.4 05/21/2013 [place] [facility] HEMATOLOGY Platelet 171 133 - 450 05/21/2013 Normal [facility] HEMATOLOGY RDW 13.6 11.5 - 14.5 05/21/2013 Normal [facility] HEMATOLOGY MCHC 33.3 32.0 - 36.0 05/21/2013 Normal [facility] HEMATOLOGY MCH 31.1 27.0 - 31.0 05/21/2013 [facility] HEMATOLOGY MCV 93.5 81.0 - 99.0 05/21/2013 Normal [facility] HEMATOLOGY Hct 38.3 36.0 - 48.0 05/21/2013 Normal [facility] HEMATOLOGY Hgb 12.8 12.0 - 16.0 05/21/2013 Normal [facility] HEMATOLOGY RBC X 10x6 4.10 4.20 - 5.40 05/21/2013 LOW [facility] HEMATOLOGY WBC X 10x3 12.3 3.7 - 10.4 05/21/2013 HI [facility] HEMATOLOGY Basophils # 0.0 0.0 - 0.2 05/21/2013 Normal [facility] HEMATOLOGY Eosinophils # 0.2 0.0 - 0.5 05/21/2013 Normal [facility] HEMATOLOGY Lymphocytes # 3.5 1.0 - 5.5 05/21/2013 Normal [facility] HEMATOLOGY Monocytes # 0.8 0.0 - 0.8 05/21/2013 Normal [facility] HEMATOLOGY Segs-Bands # 7.8 1.5 - 8.1 05/21/2013 Normal [facility] HEMATOLOGY Basophils 0.2 0.0 - 1.0 05/21/2013 Normal [facility] HEMATOLOGY Eosinophils 1.3 0.0 - 4.0 05/21/2013 Normal [facility] HEMATOLOGY Monocytes 6.7 2.0 - 12.0 05/21/2013 Normal [facility] HEMATOLOGY Segs 63.4 45.0 - 75.0 05/21/2013 Normal [facility] HEMATOLOGY Lymphocytes 28.4 20.0 - 40.0 05/21/2013 Normal [facility] BLOOD BANK RESULTS Antibody Scrn Negative (05/20/2013 19:58:00) 05/21/2013 Normal [facility] BLOOD BANK RESULTS ABO/Rh B POS 05/21/2013 [facility] CHEMISTRY Lactic Acid Lvl 1.1 0.5 - 2.2 05/21/2013 Normal [facility] CHEMISTRY CK-MB INDEX 0.8 0.0 - 2.5 05/20/2013 Normal [facility] CHEMISTRY Troponin-I <0.02 0.00 - 0.40 05/20/2013 Normal [facility] CHEMISTRY Magnesium Lvl 1.9 1.8 - 2.4 05/20/2013 Normal [facility] CHEMISTRY Phosphorus 2.2 2.5 - 4.5 05/20/2013 LOW [facility] CHEMISTRY Total CK 80 12 - 191 05/20/2013 Normal [facility] CHEMISTRY CK MB 0.6 0.5 - 3.6 05/20/2013 Normal [facility] CHEMISTRY Chloride Lvl 105 95 - 109 05/20/2013 Normal [facility] CHEMISTRY Sodium Lvl 135 135 - 145 05/20/2013 Normal [facility] CHEMISTRY Potassium Lvl 4.4 3.5 - 5.1 05/20/2013 Normal [facility] CHEMISTRY eGFR 102 05/20/2013 <sup>5</sup>Result Comment: [...] should be multiplied by the estimated BMI. [facility] CHEMISTRY Bili Total 0.5 0.2 - 1.3 05/20/2013 Normal [facility] CHEMISTRY Globulin 3.7 2.0 - 4.0 05/20/2013 Normal [facility] CHEMISTRY B/C Ratio 20 6 - [...] values reflect the clinical guidelines
of the [employer]. [facility] CHEMISTRY BUN 10 7 - 22 05/20/2013 Normal [facility] CHEMISTRY Calcium Lvl 8.4 8.5 - 10.5 05/20/2013 LOW [facility] CHEMISTRY A/G Ratio 1.1 0.7 - 1.6 05/20/2013 Normal [facility] CHEMISTRY CO2 23 24 - 32 05/20/2013 LOW [facility] CHEMISTRY Creatinine Lvl 0.5 0.5 - 1.4 05/20/2013 Normal [facility] HEMATOLOGY Plt Morph Normal (05/20/2013 16:59:20) 05/20/2013 Normal [facility] HEMATOLOGY Monocytes 1.9 2.0 - 12.0 05/20/2013 LOW [facility] HEMATOLOGY Lymphocytes 8.3 20.0 - 40.0 05/20/2013 LOW [facility] HEMATOLOGY RBC Morph Normal (05/20/2013 16:59:20) [...] # 0.0 0.0 - 0.2 05/20/2013 Normal [facility] HEMATOLOGY MCHC 32.9 32.0 - 36.0 05/20/2013 Normal [facility] HEMATOLOGY MCH 30.5 27.0 - 31.0 05/20/2013 Normal [facility] HEMATOLOGY Platelet 196 133 - 450 05/20/2013 Normal [facility] HEMATOLOGY RDW 14.0 11.5 - 14.5 05/20/2013 Normal [facility] HEMATOLOGY Hgb 14.2 12.0 - 16.0 05/20/2013 Normal [facility] HEMATOLOGY MCV 92.6 81.0 - 99.0 05/20/2013 Normal [facility] HEMATOLOGY Hct 43.1 36.0 - 48.0 05/20/2013 Normal [facility] HEMATOLOGY MPV 11.1 7.4 - 10.4 05/20/2013 HI [facility] HEMATOLOGY RBC X 10x6 4.65 4.20 - 5.40 05/20/2013 Normal [facility] HEMATOLOGY WBC X 10x3 20.6 3.7 [...] UA Ketones Trace mg/dL Negative 05/20/2013 ABN [facility] BEDSIDE GLUCOSE TESTING Glucose POC 181 [...] Est Negative (05/13/2013 12:00:22) Negative 05/13/2013 Normal [facility] CHEMISTRY AGAP 12.3 10.0 - 20.0 05/13/2013 Normal [facility] CHEMISTRY Sodium Lvl 139 135 - 145 05/13/2013 Normal [facility] CHEMISTRY Potassium Lvl 4.3 3.5 - 5.1 05/13/2013 Normal [facility] CHEMISTRY Chloride Lvl 106 95 - 109 05/13/2013 Normal [facility] CHEMISTRY eGFR 102 05/13/2013 <sup>2</sup>Result Comment: [...] should be multiplied by the estimated BMI. [facility] CHEMISTRY CO2 25 24 - 32 05/13/2013 Normal [facility] CHEMISTRY Creatinine Lvl 0.5 0.5 - 1.4 05/13/2013 Normal [facility] CHEMISTRY BUN 13 7 - 22 05/13/2013 Normal [facility] CHEMISTRY Calcium Lvl 9.2 8.5 - 10.5 05/13/2013 Normal [facility] CHEMISTRY Glucose Lvl 150 70 - 99 05/13/2013 [place] <sup>3</sup>Interpretive Data: Adult reference range values reflect the clinical guidelines
of the [employer]. [facility] HEMATOLOGY Lymphocytes # 3.8 1.0 - 5.5 05/13/2013 Normal [facility] HEMATOLOGY Basophils 0.3 0.0 - 1.0 05/13/2013 Normal [facility] HEMATOLOGY Segs-Bands # 5.6 1.5 - 8.1 05/13/2013 Normal [facility] HEMATOLOGY Monocytes 6.6 2.0 - 12.0 05/13/2013 Normal [facility] HEMATOLOGY Eosinophils 2.4 0.0 - 4.0 05/13/2013 Normal [facility] HEMATOLOGY Basophils # 0.0 0.0 - 0.2 05/13/2013 Normal [facility] HEMATOLOGY Eosinophils # 0.2 0.0 - 0.5 05/13/2013 Normal [facility] HEMATOLOGY Monocytes # 0.7 0.0 - 0.8 05/13/2013 Normal [facility] Lymphocytes 36.6 20.0 - 40.0 05/13/2013 Normal [facility] Segs 54.1 45.0 - 75.0 05/13/2013 Normal [facility] INR 0.95 0.85 - 1.17 05/13/2013 Normal <sup>4</sup>Interpretive Data: RECOMMENDED RANGES FOR PROTIME INR:
2.0-3.0 for most medical and surgical thromboembolic states.
2.5-3.5 for artificial heart valves and recurrent embolism.

INR SHOULD BE USED ONLY FOR PATIENTS ON STABLE ANTICOAGULANT THERAPY. [facility] PROTIME 12.6 12.0 - 14.7 05/13/2013 Normal [facility] aPTT 30.3 22.9 - 35.8 05/13/2013 Normal <sup>5</sup>Interpretive Data: Heparin Therapeutic Range: 57 - 92 Seconds [facility] Platelet 203 133 - 450 05/13/2013 Normal [facility] MPV 10.9 7.4 - 10.4 05/13/2013 HI [facility] HEMATOLOGY RDW 13.9 11.5 - 14.5 05/13/2013 Normal [facility] Hct 44.2 36.0 - 48.0 05/13/2013 Normal [facility] MCH 30.3 27.0 - 31.0 05/13/2013 Normal [facility] MCV 94.3 81.0 - 99.0 05/13/2013 Normal [facility] MCHC 32.1 32.0 - 36.0 05/13/2013 Normal [facility] Hgb 14.2 12.0 - 16.0 05/13/2013 Normal [facility] WBC X 10x3 10.3 3.7 - 10.4 05/13/2013 Normal [facility] HEMATOLOGY RBC X 10x6 4.69 4.20 - 5.40 05/13/2013 Normal [facility] Pathology Reports No Data Provided for [...] IMPRESSION: No evidence of DVT. 05/03/2015 [facility] [place] Cardiac SPECT multi studies NM PROCEDURE: Rest/Stress [...] with preserved EF and wall motion. 04/17/2015 [facility] contrast MRA MRA NOORVIK OF MOMIN WITHOUT CONTRAST INDICATION: Acute cognitive [...] and posterior cerebral arteries. SL: 16 04/16/2015 [facility] contrast MRI MRI BRAIN WITHOUT CONTRAST [...] No acute intracranial abnormality. SL: 16 04/15/2015 [facility] Carotid artery Doppler bilat US Carotid [...] CB, Scarlett GL, et. al. SL: 04/14/2015 [facility] Pelvis AP DX Supine AP pelvis, Apr 13, 2015 11:53:00 PM CLINICAL HISTORY: Pain, Trauma ; s/p syncope TECHNIQUE: Routine AP view of the pelvis was obtained. COMPARISON: None FINDINGS: Diffusely decreased bone mineralization is present. No acute fracture, subluxation, or dislocation is present in the pelvis. IMPRESSION: No acute abnormality of pelvis. SL: 04/13/2015 [facility] Brain wo contrast CT Examination: CT [...] No acute intracranial abnormality. SL: 16 04/13/2015 [facility] Foot series DX Examination: Left foot, 3 views History: Pain in limb Comparison: None. Findings: Multiple views of the left foot show no acute bony fracture or joint dislocation. Soft tissues are unremarkable. IMPRESSION: No acute bony abnormality of the left foot. SL: 16 04/13/2015 [facility] Chest 1view DX Examination: Chest x-ray, single view History: Chest pain Comparison: 05/20/2013 Findings: The lungs are clear and without focal consolidation. The cardiomediastinal silhouette is within normal limits. No pleural effusion or pneumothorax is seen. The osseous structures are without focal abnormality. IMPRESSION: No acute cardiopulmonary disease. SL: 04/13/2015 [facility] Abdomen/Pelvis wo contrast CT CT SCAN [...] are present incompletely evaluated. SL: 12 05/20/2013 [facility] Chest 1view HISTORY: Nausea vomiting and chest pain. One view chest. Lungs are clear. Heart size normal. Pulmonary vasculature normal. There is no pleural effusion or pneumothorax. IMPRESSION: No acute findings SL:13 05/20/2013 [facility] Kidney pyelogram retrograde Bilateral retrograde pyelograms: Multiple spot images from cystoscopy are submitted. Contrast has been injected at both ureteral orifices. There is normal caliber of the collecting systems and ureters without filling defect, obstruction or mass displacement. SL:13 05/20/2013 [facility] Chest 2 views PA and lateral: The aorta is tortuous. The cardiomediastinal silhouette, pulmonary vasculature and pablito are otherwise within normal limits. The lungs and pleural spaces are clear. There are no significant osseous abnormalities. IMPRESSION: No acute radiographic abnormality in the chest. SL:13 05/13/2013 [facility] Consultation Notes No Data Provided for This Section Discharge Summaries No Data Provided for This Section History and Physicals No Data Provided for This Section Vital Signs Vital Sign Value Date Comments Source Systolic (mm Hg) 152 04/18/2015 [facility] Diastolic (mm Hg) 82 04/18/2015 [facility] Respitory Rate 20 04/18/2015 [facility] Heart Rate 82 04/18/2015 [facility] Systolic (mm Hg) 174 04/18/2015 [facility] Diastolic (mm Hg) 75 04/18/2015 [facility] Respitory Rate 18 04/18/2015 [facility] Heart Rate 70 04/18/2015 [facility] Systolic (mm Hg) 157 04/18/2015 [facility] Diastolic (mm Hg) 80 04/18/2015 [facility] Respitory Rate 20 04/18/2015 [facility] Heart Rate 58 04/18/2015 [facility] Temperature Oral (F) 98.0 F 04/18/2015 [facility] Temperature Oral (F) 98.1 F 04/18/2015 [facility] Temperature Oral (F) 98.2 F 04/18/2015 [facility] Height 154.94 cm 04/14/2015 [facility] Weight 63.182 04/14/2015 [facility] BMI Calculated 26.32 04/14/2015 [facility] Diastolic (mm Hg) 80 05/22/2013 [facility] Systolic (mm Hg) 116 05/22/2013 [facility] Respitory Rate 19 05/22/2013 [facility] Systolic (mm Hg) 164 05/22/2013 [facility] Respitory Rate 16 05/22/2013 [facility] Heart Rate 67 05/22/2013 [facility] Temperature Oral (F) 98.1 F 05/22/2013 [facility] Diastolic (mm Hg) 74 05/22/2013 [facility] Respitory Rate 18 05/22/2013 [facility] Heart Rate 73 05/22/2013 [facility] Temperature Oral (F) 98.2 F 05/22/2013 [facility] Systolic (mm Hg) 160 05/22/2013 [facility] Diastolic (mm Hg) 77 05/22/2013 [facility] Temperature Oral (F) 97.8 F 05/22/2013 [facility] Heart Rate 69 05/22/2013 [facility] Height 157.48 cm 05/21/2013 [facility] Weight 67.273 05/21/2013 [facility] Height 154.94 cm 05/20/2013 [facility] Weight 65.909 05/20/2013 [facility] Diastolic (mm Hg) 69 05/20/2013 [facility] Systolic (mm Hg) 145 05/20/2013 [facility] Diastolic (mm Hg) 80 05/20/2013 [facility] Systolic (mm Hg) 160 05/20/2013 [facility] Diastolic (mm Hg) 44 05/20/2013 [facility] Systolic (mm Hg) 159 05/20/2013 [facility] Respitory Rate 17 05/20/2013 [facility] Respitory Rate 22 05/20/2013 [facility] Respitory Rate 29 05/20/2013 [facility] Heart Rate 81 05/20/2013 [facility] Height 167.64 cm 05/13/2013 [facility] Weight 65.909 05/13/2013 [facility] Heart Rate 66 05/13/2013 [facility] Temperature Oral (F) 98.0 F 05/13/2013 [facility] Heart Rate 80 05/13/2013 [facility] Temperature Oral (F) 97.9 F 05/13/2013 [facility] Weight 65.455 05/13/2013 [facility] Height 153.67 cm 05/13/2013 [facility] Encounters Location Location Details Encounter Type Encounter Number Reason For Visit Attending Provider ADM Date DC Date Status Source [facility] DS [id number] IRA ROB 05/20/2013 05/20/2013 Discharged [facility] OU [id number] RIGHT SIDE PYELONEPHRITIS TATUM ALEX 05/20/2013 05/22/2013 Active [facility] OBS Observation Patient [id number] Nestor Jose 04/13/2015 04/18/2015 [facility] [place] [facility] [id number] Rajiv Nascimbene 05/03/2015 05/04/2015 DARYL Marie Procedures Procedure Code Date Perfomer Comments Source Cystourethroscopy, with fulguration (including cryosurgery or laser surgery) and/or resection of; MEDIUM bladder tumor(s) (2.0 to 5.0 cm) [id number] 05/20/2013 [facility] Other Transurethral Excision or Destruction of Lesion or Tissue of Bladder 57.49 05/20/2013 [facility] Bladder operation [id number] 05/20/2013 [facility] Emergency department visit for the evaluation and management of a patient, which requires these 3 maldonado components within the constraints imposed by the urgency of the patient's clinical condition and/or mental status: A comprehensive history; A comprehensi [id number] 05/20/2013 [facility] Bladder operation [id number] 05/20/2013 [facility] [place] Cholecystectomy [id number] [facility] Hysterectomy [id number] [facility] Cholecystectomy [id number] [facility] [place] Hysterectomy [id number] [facility] [place] Assessment and Plan Assessment and Plan Date Source Extracted from:Title: History and Physical Author: Viktor Lim MD Date: 04/13/15 H&P [facility] Completed: Mar, 23:47 by Viktor [...] Time Meds: None Continuous Infusions: None 04/18/2015 [facility] Plan of Care No Data Provided [...] No; Reg Smoking Cessation Counseling No 04/14/2015 [facility] Family History No Data Provided for This Section Advance Directives No Data Provided for This Section Functional Status No Data Provided for This Section
--- NOTE | 2019-02-18 15:43 | Diagnostic Imaging Report ---
EXAM: CT Chest WITH contrast- Pulmonary Embolism Protocol INDICATION: Chest pain, shortness of breath COMPARISON: Chest radiograph 02/18/2019 TECHNIQUE: Chest was scanned utilizing a multidetector helical scanner from the lung apex through the level of the diaphragm after administration of IV contrast. Thin section reconstructions were obtained with special concentration on the pulmonary arteries. Coronal and sagittal reformations were obtained. Pulmonary embolism protocol was performed. IV CONTRAST: 100 cc of Isovue 370 RADIATION DOSE: Total DLP: 542.6 mGy*cm Dose modulation, iterative reconstruction, and/or weight based adjustment of the mA/kV was utilized to reduce the radiation dose to as low as reasonably achievable. COMPLICATIONS: None FINDINGS: LINES/ TUBES: None. PULMONARY ARTERIES: No filling defect is identified within the pulmonary arteries to the segmental level. Main pulmonary artery measures 2.7 cm in diameter. No evidence of right heart strain.. LUNGS AND AIRWAYS: The central airways are patent. No focal consolidation or pulmonary edema. Minimal bibasilar dependent subsegmental atelectasis. Mild bilateral upper lobe predominant centrilobular emphysema. No suspicious pulmonary nodule. PLEURA: No pleural effusion. No pneumothorax. HEART AND MEDIASTINUM: The thyroid gland appears unremarkable. No supraclavicular, mediastinal, hilar, axillary, subpectoral, or internal mammary lymphadenopathy. The heart is not enlarged. No pericardial effusion. Atherosclerotic calcifications of the coronary arteries and thoracic aorta. UPPER ABDOMEN: There are several right hepatic hypodense lesions, the larger of which measures up to 2.3 cm (series 2 image 108) which are incompletely evaluated on this single phase contrast-enhanced chest CT but more likely represent cysts. Status post cholecystectomy. No splenomegaly. The adrenal glands and pancreas appear unremarkable. There are renal cysts in both partially visualized kidneys. No hydronephrosis. Diverticulosis of the partially visualized ascending colon without CT evidence of diverticulitis. BONES: No acute osseous injury. Mild degenerative changes of the visualized spine. SOFT TISSUES: Unremarkable. IMPRESSION: No pulmonary embolism. No focal pneumonia or pulmonary edema. Atherosclerotic coronary artery calcifications. Signed by: Arelis Edwards MD on 02/18/2019 3:40 PM
[2019-02-18] MEDS: AZITHROMYCIN 500MG/NS 250 ML 250 ML IV SCH (15:44)
--- NOTE | 2019-02-18 16:05 | NUR ---
report given to anastasia for this patient to go to rm 197.
[2019-02-18 17:15] VITALS: BP 125/65
--- NOTE | 2019-02-18 17:15 | NUR ---
Patient arrived to unit with a diagnosis of COPD. Patient is awake, alert x3 and able to make needs known. POC discussed. Patient instructed to call for assistance as needed and verbalized understanding. Call benavides within reach
[2019-02-18 17:45] VITALS: BP 125/65
[2019-02-18 18:00] VITALS: BP 125/65
[2019-02-18] MEDS ORDERED: DIAZEPAM5 MG PO (18:22)
[2019-02-18] MEDS ORDERED: METOPROLOL TART25 MG PO (18:22)
[2019-02-18] MEDS ORDERED: HYDROCODON-ACE1 EAC9 PO (18:22)
[2019-02-18] MEDS ORDERED: BENADRYL ITCH28.3 GM TOP (18:23)
--- NOTE | 2019-02-18 18:30 | NUR ---
Dr. Chatman paged to restart home medications and patient is requesting something for pain. 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
[2019-02-18] MEDS: FORMOTEROL FUMARATE 20 MCG/2 ML VIAL IH SCH (19:00)
[2019-02-18] MEDS ORDERED: HYDROCODONE/APAP 10MG-325MG TAB PO PRN (19:15)
[2019-02-18] MEDS ORDERED: [UNRECOGNIZED DRUG - OTHER] TOP PRN (19:15)
[2019-02-18] MEDS ORDERED: DIPHENHYDRAMINE HCL TOP PRN (19:15)
[2019-02-18] MEDS ORDERED: DIAZEPAM 5 MG TAB PO PRN (19:15)
[2019-02-18] MEDS ORDERED: ZINC ACETATE TOP PRN (19:15)
[2019-02-18] MEDS ORDERED: DIPHENHYDRAMINE HCL 30 GM TUBE TOP PRN (19:45)
[2019-02-18] MEDS: GABAPENTIN 400 MG CAP PO SCH (20:09)
[2019-02-18] MEDS: KETOROLAC TROMETHAMINE 30 MG/ML VIAL IV PRN (20:09)
[2019-02-18] MEDS: NICOTINE 21 MG/EA PATCH TOP SCH (20:09)
[2019-02-18] MEDS: METHYLPREDNISOLONE SOD SUCC 125 MG/2ML VIAL IV SCH (20:09)
[2019-02-18] MEDS: ATORVASTATIN 20 MG TAB PO SCH (20:09)
[2019-02-18 20:34] VITALS: BP 156/77
[2019-02-18 20:38] VITALS: BP 156/77
[2019-02-18] MEDS ORDERED: GABAPENTIN 300 MG CAP PO SCH (21:00)
[2019-02-18 23:19] VITALS: BP 139/69
[2019-02-19] VITALS (8 sets, daily range): BP systolic 115–145; BP diastolic 59–95
[2019-02-19] MEDS: ALBUTEROL SULFATE HFA 8GM INHALATION AEROSOL INH SCH ×4 (01:00→19:00)
[2019-02-19] MEDS: ALBUTEROL/IPRATROPIUM 3 ML NEB NEB SCH ×6 (03:00→23:00)
[2019-02-19] MEDS ORDERED: SODIUM CHLORIDE 0.9% 50ML 50 ML ONE (04:07)
[2019-02-19] MEDS ORDERED: IOPAMIDOL 370 MG/ML 200 ML INFUS..BTL INJ ONE (04:07)
[2019-02-19 05:48] LABS: BLOOD UREA NITROGEN 13 mg/dL (7-26); BUN/CREATININE RATIO 21 (6-25); CALCIUM 9.4 mg/dL (8.4-10.2); CARBON DIOXIDE 23 mmol/L (22-29); CHLORIDE 108 mmol/L (98-107); CREATININE, SERUM 0.63 mg/dL (0.57-1.11); EST GLOMERULAR FILTRATION RATE > 60 ML/MIN (60-); GLUCOSE 254 mg/dL (74-118); SODIUM 140 mmol/L (136-145)
[2019-02-19 05:59] LABS: ANION GAP 13.9 mmol/L (8-16)
[2019-02-19 06:00] LABS: POTASSIUM 4.9 mmol/L (3.5-5.1)
[2019-02-19] MEDS: TIOTROPIUM 18 MCG INH POWDER INH SCH (06:00)
[2019-02-19 06:12] LABS: CREATINE KINASE 26 IU/L (29-168)
[2019-02-19] MEDS: FORMOTEROL FUMARATE 20 MCG/2 ML VIAL IH SCH ×2 (07:00→19:00)
[2019-02-19 07:09] LABS: BASOPHILS % 0.1 % (0.0-1.0); LYMPHOCYTES % 8.5 % (18.0-39.1); MEAN CORPUSCULAR HGB CONC 24.8 g/dL (31-35); MEAN CORPUSCULAR VOLUME 64.3 fL (81-99); MONOCYTES # (AUTO) 0.2 (0.2-0.8); MONOCYTES % 1.4 % (4.4-11.3); NEUTROPHILS # (AUTO) 10.6 (2.1-6.9); NEUTROPHILS % 89.3 % (38.7-80.0); PLATELET COUNT 334 x10e3/uL (140-360); RED CELL DISTRIBUTION WIDTH 21.2 % (11.7-14.4)
[2019-02-19 07:13] LABS: HEMOGLOBIN 6.7 g/dL (12.0-16.0)
--- NOTE | 2019-02-19 07:33 | NUR ---
pt resting in bed. paged for critical lab hh 6.7
[2019-02-19] MEDS ORDERED: FUROSEMIDE INJ 10 MG/ML 2 ML VIAL IV PRN ×2 (07:45→14:15)
[2019-02-19] MEDS ORDERED: SODIUM CHLORIDE 0.9% 250ML 250 ML IV ONE (07:45)
[2019-02-19] MEDS: ESCITALOPRAM OXALATE 10 MG TAB PO SCH (08:08)
[2019-02-19] MEDS: LOSARTAN POTASSIUM 100 MG TAB PO SCH (08:08)
[2019-02-19] MEDS: ASPIRIN 81 MG CHEW TAB PO SCH (08:08)
[2019-02-19] MEDS: GLIPIZIDE 5 MG TAB PO SCH (08:08)
[2019-02-19] MEDS: METHYLPREDNISOLONE SOD SUCC 125 MG/2ML VIAL IV SCH (08:08)
[2019-02-19] MEDS: CLOPIDOGREL BISULFATE 75 MG TAB PO SCH (08:09)
[2019-02-19] MEDS: NICOTINE 21 MG/EA PATCH TOP SCH (08:09)
[2019-02-19] MEDS: PANTOPRAZOLE SOD 40 MG TABEC PO SCH (08:09)
[2019-02-19] MEDS: METOPROLOL TARTRATE 25 MG TAB PO SCH (08:09)
[2019-02-19] MEDS: GABAPENTIN 400 MG CAP PO SCH ×3 (08:09→20:24)
--- NOTE | 2019-02-19 10:06 | NUR ---
pt unsure of transfusion, wants to speak with and MD first.
[2019-02-19 13:57] LABS: CREATINE KINASE 28 IU/L (29-168)
[2019-02-19] MEDS ORDERED: DIPHENHYDRAMINE HCL INJ 50 MG/ML VIAL IV ONE (14:15)
[2019-02-19] MEDS ORDERED: SODIUM CHLORIDE 0.9% 250ML 250 ML IV NR (14:15)
--- NOTE | 2019-02-19 15:05 | History and Physical ---
HISTORY OF PRESENT ILLNESS: She is a 68-year-old female, past medical history positive for COPD and neuropathy. The patient came with severe left-sided chest pain. She had a cardiac cath done recently few weeks ago, which showed according to the patient, normal coronary arteries. She was found to have very low hemoglobin of 6.7. She is going to get blood transfusion today. REVIEW OF SYSTEMS: CARDIOVASCULAR: She had a constant pain on the left side that started the day before prior to the admission with no radiation on the left breast. She has no rash. No other significant abnormalities. RESPIRATORY: She has chronic shortness of breath and cough. GASTROINTESTINAL: No nausea. No vomiting. No diarrhea. No black stools. No blood in the stools. No vomiting blood. No epigastric pain. No blood in the urine. No epistaxis. GENITOURINARY: No frequency or dysuria. ALLERGIES: TO CELEBREX. SHE IS ALLERGIC TO LEVAQUIN. SHE IS ALLERGIC TO BUPROPION. SHE IS ALLERGIC TO BACLOFEN. SHE IS ALLERGIC TO TRAMADOL. PHYSICAL EXAMINATION: HEART: Showed regular rhythm. Normal S1 and S2 sound. LUNGS: Decreased breath sounds bilaterally. ABDOMEN: Soft. EXTREMITIES: Show no evidence of cyanosis or hematoma. VITAL SIGNS: Blood pressure 124/59, temperature 98.5, heart rate 82 per minute, respiratory rate 18 per minute, and oxygen saturation 98%. LABORATORY DATA: On the BMP; sodium 140, potassium 4.9, chloride 108, CO2 23, BUN 13, creatinine 0.63, and glucose 254. On the CBC; white blood count 11,800, hemoglobin 6.7, hematocrit 27.0, and platelet count 354,000. AST 10, ALT 14, total bilirubin 0.3, and alkaline phosphatase 84. Also, EKG was done in the emergency room showed essentially normal sinus rhythm, no evidence of any ST-segment depression or elevation. Troponins are negative. CT of the chest showed no significant abnormalities. FINAL IMPRESSION: 1. Left-sided atypical chest pain, most likely costochondral. 2. Acute anemia. 3. Chronic obstructive pulmonary disease exacerbation. 4. Neuropathy. 5. Smoker. PLAN OF TREATMENT: We are going to give 2 units of blood. Continue albuterol and Atrovent q.4 hours, formoterol twice a day, Zithromax 250 mg IV once a day, Lipitor 20 mg daily, glipizide 10 mg daily, nicotine 21 mg daily, gabapentin 400 mg 3 times a day, Solu-Medrol going to be discontinue. Continue Plavix 75 mg daily, [place] 1 tablet 3 times a day as needed, Protonix 40 mg daily. Continue diazepam 10 mg daily, losartan 10 mg daily, Spiriva 1 inhalation daily, Benadryl as needed daily, aspirin 81 mg daily, citalopram 20 mg daily, metoprolol 25 mg daily, Toradol 10 mg IV q.6 hours as needed. also, part of anemia workup will include stool guaiac x3, iron, TIBC, ferritin, vitamin B12, and folic acid levels. The patient had a colonoscopy done which showed some polyps done by Dr. Yves Chatman. No clinical evidence of any bleeding. MD KATHRYN Raymundo/DODIE /[id number]
[2019-02-19] MEDS: MORPHINE SULFATE 2 MG/ML SYR 1ML IV PRN ×3 (15:11→23:54)
[2019-02-19] MEDS: AZITHROMYCIN 500MG/NS 250 ML 250 ML IV SCH (15:11)
--- NOTE | 2019-02-19 15:15 | History and Physical ---
ADDENDUM: DIAGNOSES: 1. Uncontrolled diabetes mellitus type 2 with diabetic neuropathy. 2. Hypertension. 3. Anxiety disorder. Also, we are going to start morphine 2 mg IV every 4 hours as needed because apparently Toradol and [place] are not helping the pain and the patient has been already in pain management. She is probably develop tolerance to [place]. MD KATHRYN Raymundo/DODIE /[id number]
--- NOTE | 2019-02-19 15:30 | NUR ---
pt and spoke with MD, will have transfusion. pt requested xray and abx admin 1st.
[2019-02-19 15:48] LABS: FERRITIN 3.18 ng/mL (4.63-204.00)
--- NOTE | 2019-02-19 17:00 | NUR ---
iv access lost, pt hard stick. pending iv access for blood admin.
--- NOTE | 2019-02-19 17:19 | Diagnostic Imaging Report ---
EXAMINATION: Rib radiographs-4 views INDICATION: Left-sided chest pain. COMPARISON: CT chest 02/18/2019. FINDINGS: No evidence of displaced left-sided rib fracture. The partially visualized lungs are clear. No evidence of pneumothorax or pleural effusion.The cardiomediastinal silhouette is unchanged. Atherosclerotic calcifications of the aortic arch. Status post cholecystectomy. IMPRESSION: No evidence of displaced left-sided rib fracture. Signed by: Dr. Dilcia Hernandez MD on 02/19/2019 5:15 PM
[2019-02-19] MEDS ORDERED: DIPHENHYDRAMINE HCL INJ 50 MG/ML VIAL ONE (18:38)
[2019-02-19] MEDS ORDERED: SODIUM CHLORIDE 0.9% 250ML 250 ML ONE ×2 (18:39→23:13)
[2019-02-19] MEDS: ATORVASTATIN 20 MG TAB PO SCH (20:24)
[2019-02-19] MEDS: KETOROLAC TROMETHAMINE 30 MG/ML VIAL IV PRN (22:45)
[2019-02-19] MEDS ORDERED: IRON SUCROSE 100 MG in SODIUM CHLORIDE 0.9% 100 ML 100 ML IV SCH (23:15)
[2019-02-19] MEDS ORDERED: CYANOCOBALAMIN INJ 1,000 MCG/ML VIAL IM ONE (23:15)
[2019-02-20] MEDS: ALBUTEROL SULFATE HFA 8GM INHALATION AEROSOL INH SCH ×4 (01:00→19:00)
[2019-02-20] MEDS: ALBUTEROL/IPRATROPIUM 3 ML NEB NEB SCH ×6 (03:00→23:00)
[2019-02-20] MEDS: MORPHINE SULFATE 2 MG/ML SYR 1ML IV PRN ×2 (04:23→08:51)
[2019-02-20 07:05] VITALS: BP 146/66
[2019-02-20 07:12] VITALS: BP 146/66
[2019-02-20 07:12] LABS: BASOPHILS % 0.1 % (0.0-1.0); EOSINOPHILS # (AUTO) 0.2 (0.0-0.4); EOSINOPHILS % 0.8 % (0.0-6.0); HEMATOCRIT 32.6 % (34.2-44.1); HEMOGLOBIN 9.2 g/dL (12.0-16.0); LYMPHOCYTES # (AUTO) 3.1 (1.0-3.2); MEAN CORPUSCULAR HEMOGLOBIN 19.9 pg (28-32); MEAN CORPUSCULAR HGB CONC 28.2 g/dL (31-35); MEAN CORPUSCULAR VOLUME 70.4 fL (81-99); MONOCYTES # (AUTO) 1.3 (0.2-0.8); MONOCYTES % 6.1 % (4.4-11.3); NEUTROPHILS # (AUTO) 16.2 (2.1-6.9); NEUTROPHILS % 77.4 % (38.7-80.0); PLATELET COUNT 303 x10e3/uL (140-360); RED BLOOD COUNT 4.63 x10e6/uL (3.6-5.1); RED CELL DISTRIBUTION WIDTH 25.2 % (11.7-14.4)
[2019-02-20 07:26] LABS: ANION GAP 12.9 mmol/L (8-16); BLOOD UREA NITROGEN 19 mg/dL (7-26); BUN/CREATININE RATIO 29 (6-25); CALCIUM 8.6 mg/dL (8.4-10.2); CARBON DIOXIDE 21 mmol/L (22-29); CHLORIDE 108 mmol/L (98-107); CREATININE, SERUM 0.65 mg/dL (0.57-1.11); EST GLOMERULAR FILTRATION RATE > 60 ML/MIN (60-); GLUCOSE 204 mg/dL (74-118); POTASSIUM 3.9 mmol/L (3.5-5.1); SODIUM 138 mmol/L (136-145)
[2019-02-20] MEDS: FORMOTEROL FUMARATE 20 MCG/2 ML VIAL IH SCH ×2 (07:50→19:00)
[2019-02-20] MEDS: TIOTROPIUM 18 MCG INH POWDER INH SCH (07:50)
[2019-02-20 07:51] LABS: ANISOCYTOSIS MODERATE; HYPOCHROMASIA SLIGHT; PLATELET ESTIMATE ADEQUATE; PLATELET MORPHOLOGY COMMENT NORMAL; POIKILOCYTOSIS SLIGHT
[2019-02-20 07:52] LABS: ELLIPTOCYTE, RBC SLIGHT; OVALOCYTES FEW; RBC MORPHOLOGY COMMENT ABNORMAL
[2019-02-20] MEDS: CYANOCOBALAMIN INJ 1,000 MCG/ML VIAL IM SCH (08:09)
[2019-02-20] MEDS: PANTOPRAZOLE SOD 40 MG TABEC PO SCH (08:09)
[2019-02-20] MEDS: NICOTINE 21 MG/EA PATCH TOP SCH (08:09)
[2019-02-20] MEDS: IRON SUCROSE 100 MG in SODIUM CHLORIDE 0.9% 100 ML 100 ML IV SCH (08:09)
[2019-02-20] MEDS: METOPROLOL TARTRATE 25 MG TAB PO SCH (08:09)
[2019-02-20] MEDS: ASPIRIN 81 MG CHEW TAB PO SCH (08:09)
[2019-02-20] MEDS: ESCITALOPRAM OXALATE 10 MG TAB PO SCH (08:09)
[2019-02-20] MEDS: GABAPENTIN 400 MG CAP PO SCH ×3 (08:09→20:38)
[2019-02-20] MEDS: CLOPIDOGREL BISULFATE 75 MG TAB PO SCH (08:09)
[2019-02-20] MEDS: GLIPIZIDE 5 MG TAB PO SCH (08:09)
[2019-02-20] MEDS: LOSARTAN POTASSIUM 100 MG TAB PO SCH (08:09)
[2019-02-20 11:24] VITALS: BP 147/70
[2019-02-20] MEDS: MORPHINE SULFATE INJ 4 MG/ML INJ 1ML IV PRN ×2 (12:56→17:25)
--- NOTE | 2019-02-20 13:54 | Progress Note ---
DATE: Internal Medicine Progress Note SUBJECTIVE: She is still complaining of left-sided chest pain. X-ray of the left ribs showed no evidence of any fracture. Chest x-ray came back essentially unremarkable. CT of chest showed no evidence of any significant lung abnormality. PHYSICAL EXAMINATION: HEART: Showed regular rhythm. Normal S1, S2 sound. LUNGS: Clear bilaterally. ABDOMEN: Soft. EXTREMITIES: Show no evidence of cyanosis or hematoma. VITAL SIGNS: Blood pressure 146/66, temperature 97.0, heart rate 81 per minute, respiratory rate 19 per minute, and oxygen saturation 100%. LABORATORY DATA: On the BMP; sodium 138, potassium 3.9, chloride 108, CO2 of 21, BUN 19, creatinine 0.65, glucose of 204. On the CBC, white blood count 20.9, hemoglobin 9.2, hematocrit 32.6, platelet count 303,000. AST 10, ALT 14, total bilirubin 0.3, alkaline phosphatase 84. IMPRESSION: 1. Atypical chest wall pain. 2. Acute anemia. 3. Chronic obstructive pulmonary disease exacerbation. 4. Neuropathy. 5. Hypertension. 6. Uncontrolled diabetes mellitus type 2 with diabetic neuropathy. PLAN OF TREATMENT: 1. Continue albuterol and Atrovent q.4 hours. 2. Formoterol twice a day. 3. Zithromax 250 mg IV once a day. 4. She is taking IV iron. 5. Continue Lipitor 20 mg at bedtime. 6. Glipizide 10 mg daily. 7. Protonix 40 mg daily. 8. Morphine 2 mg IV every 4 hours as needed. We are going to increase to 3 mg IV every 4 hours as needed. 9. Continue Plavix 75 mg daily. 10. Losartan 100 mg daily. 11. Spiriva 1 inhalation daily. 12. Benadryl as needed. 13. Vitamin B12 1000 mcg daily. 14. Albuterol q.6 hours. 15. Diazepam 10 mg daily. 16. Metoprolol 25 mg daily. 17. She is taking Toradol 10 mg IV q.6 hours as needed, which we are going to discontinue because it is not helping the pain. 18. Continue with aspirin 81 mg daily. 19. Citalopram 20 mg daily. 20. Nicotine patch 21 mg daily. 21. Gabapentin 400 mg three times a day. Dr. Chatman will resume the care tomorrow. MD KATHRYN Raymundo/ODDIE /[id number]
[2019-02-20] MEDS: AZITHROMYCIN 500MG/NS 250 ML 250 ML IV SCH (15:46)
[2019-02-20 16:24] VITALS: BP 134/71
[2019-02-20] MEDS: KETOROLAC TROMETHAMINE 30 MG/ML VIAL IV PRN (19:13)
[2019-02-20 20:00] VITALS: BP 140/68
[2019-02-20] MEDS: ATORVASTATIN 20 MG TAB PO SCH (20:38)
[2019-02-20 21:00] VITALS: BP 140/68
[2019-02-21] VITALS (8 sets, daily range): BP systolic 137–158; BP diastolic 61–79
[2019-02-21] MEDS: ALBUTEROL/IPRATROPIUM 3 ML NEB NEB SCH ×6 (00:05→19:36)
[2019-02-21] MEDS: MORPHINE SULFATE INJ 4 MG/ML INJ 1ML IV PRN ×4 (00:25→18:54)
[2019-02-21] MEDS: ALBUTEROL SULFATE HFA 8GM INHALATION AEROSOL INH SCH ×4 (01:00→19:36)
--- NOTE | 2019-02-21 01:25 | NUR ---
Patient taking shower at this time. Will continue to monitor.
[2019-02-21] MEDS: ACETAMINOPHEN 325 MG TAB PO PRN (01:47)
[2019-02-21] MEDS: TIOTROPIUM 18 MCG INH POWDER INH SCH (06:00)
[2019-02-21] MEDS: FORMOTEROL FUMARATE 20 MCG/2 ML VIAL IH SCH ×2 (07:00→19:36)
--- NOTE | 2019-02-21 07:01 | NUR ---
Report given to oncoming nurse,walking round done.
[2019-02-21] MEDS: GLIPIZIDE 5 MG TAB PO SCH (07:30)
[2019-02-21] MEDS: CYANOCOBALAMIN INJ 1,000 MCG/ML VIAL IM SCH (07:40)
[2019-02-21] MEDS: LOSARTAN POTASSIUM 100 MG TAB PO SCH (07:40)
[2019-02-21] MEDS: PANTOPRAZOLE SOD 40 MG TABEC PO SCH (07:40)
[2019-02-21] MEDS: KETOROLAC TROMETHAMINE 30 MG/ML VIAL IV PRN ×2 (07:40→21:28)
[2019-02-21] MEDS: NICOTINE 21 MG/EA PATCH TOP SCH (07:40)
[2019-02-21] MEDS: ESCITALOPRAM OXALATE 10 MG TAB PO SCH (07:40)
[2019-02-21] MEDS: IRON SUCROSE 100 MG in SODIUM CHLORIDE 0.9% 100 ML 100 ML IV SCH (07:40)
[2019-02-21] MEDS: GABAPENTIN 400 MG CAP PO SCH ×3 (07:40→21:17)
[2019-02-21] MEDS: METOPROLOL TARTRATE 25 MG TAB PO SCH (07:40)
[2019-02-21] MEDS: ASPIRIN 81 MG CHEW TAB PO SCH (07:53)
[2019-02-21] MEDS: CLOPIDOGREL BISULFATE 75 MG TAB PO SCH (07:55)
--- NOTE | 2019-02-21 10:12 | NUR ---
Report given to Cindy HUIZAR of patient's status. Taken via wheelchair to room 207. O2 2L NC.
--- NOTE | 2019-02-21 10:29 | NUR ---
notified mr.roberts matute , , of room change
--- NOTE | 2019-02-21 14:00 | NUR ---
IMM letter delivered and explained to pt. She verbalized understanding. Signed copy placed in chart. Copy to pt.
[2019-02-21] MEDS ORDERED: SODIUM CHLORIDE 0.9% 250ML 250 ML ONE (17:09)
[2019-02-21] MEDS: AZITHROMYCIN 500MG/NS 250 ML 250 ML IV SCH (17:49)
--- NOTE | 2019-02-21 19:23 | NUR ---
Patient receive siting up in bed. AAO x 3. No acute distress noted. Call light within reach.
[2019-02-21] MEDS: ATORVASTATIN 20 MG TAB PO SCH (21:17)
[2019-02-22] VITALS (8 sets, daily range): BP systolic 120–155; BP diastolic 58–68
[2019-02-22] MEDS: ALBUTEROL SULFATE HFA 8GM INHALATION AEROSOL INH SCH ×4 (00:05→19:00)
[2019-02-22] MEDS: MORPHINE SULFATE INJ 4 MG/ML INJ 1ML IV PRN ×5 (00:38→23:19)
--- NOTE | 2019-02-22 01:15 | NUR ---
Dr. Zaynab Chatman here to see patient. New orders received.
[2019-02-22] MEDS ORDERED: DONNATAL/LIDOCAINE/MAALOX 30 ML SUSP PO ONE (01:30)
--- NOTE | 2019-02-22 02:29 | NUR ---
Patient informed about recommended diagnostic procedure--EGD. Patient instructed about having Clear liquid breakfast and afterwards be "NPO" after 0800. Patient verbalized understanding and voluntarily signed "Disclosure and Consent" form.
[2019-02-22] MEDS: ALBUTEROL/IPRATROPIUM 3 ML NEB NEB SCH ×6 (02:31→23:10)
[2019-02-22] MEDS: PANTOPRAZOLE 40 MG 10ML VIAL IV SCH ×2 (02:39→13:30)
[2019-02-22] MEDS: ACETAMINOPHEN 325 MG TAB PO PRN (02:40)
[2019-02-22] MEDS ORDERED: MAGNESIUM/ALUMINUM/SIMETHICONE 30 ML UDC ONE (02:47)
[2019-02-22] MEDS ORDERED: BELLADONNA ALK/PHENOBARBITAL 5 ML UDC ONE (02:47)
[2019-02-22] MEDS ORDERED: LIDOCAINE VISC 2% SOLN 15 ML UDC ONE (02:50)
[2019-02-22] MEDS: TIOTROPIUM 18 MCG INH POWDER INH SCH (06:48)
--- NOTE | 2019-02-22 07:07 | NUR ---
Walking rounds done. Shift report given to oncoming nurse.
[2019-02-22] MEDS: GLIPIZIDE 5 MG TAB PO SCH (07:30)
--- NOTE | 2019-02-22 08:00 | NUR ---
The pt. is n p o for egd today.
[2019-02-22] MEDS ORDERED: LORAZEPAM 0.5 MG TAB PO PRN (08:15)
[2019-02-22] MEDS: FORMOTEROL FUMARATE 20 MCG/2 ML VIAL IH SCH ×2 (08:36→08:55)
[2019-02-22] MEDS ORDERED: SODIUM CHLORIDE 0.9% 250ML 250 ML ONE (08:50)
[2019-02-22] MEDS: ASPIRIN 81 MG CHEW TAB PO SCH (08:55)
[2019-02-22] MEDS: IRON SUCROSE 100 MG in SODIUM CHLORIDE 0.9% 100 ML 100 ML IV SCH (08:55)
[2019-02-22] MEDS: CYANOCOBALAMIN INJ 1,000 MCG/ML VIAL IM SCH (08:55)
[2019-02-22] MEDS: DULOXETINE HCL 30 MG DELAYED RELEASE PO SCH (08:56)
[2019-02-22] MEDS: LOSARTAN POTASSIUM 100 MG TAB PO SCH (08:56)
[2019-02-22] MEDS: CLOPIDOGREL BISULFATE 75 MG TAB PO SCH (08:58)
[2019-02-22] MEDS: GABAPENTIN 400 MG CAP PO SCH ×3 (08:58→21:03)
[2019-02-22] MEDS: METOPROLOL TARTRATE 25 MG TAB PO SCH (08:58)
[2019-02-22] MEDS: NICOTINE 21 MG/EA PATCH TOP SCH (08:58)
--- NOTE | 2019-02-22 10:41 | NUR ---
ASSESSMENT: Spiritual distress Pt grieving of granddaughter. Pt states her 32y/o granddaughter recently . Pt hopeful for successful procedure this afternoon. Pt identifies as Ep[employer]alian. Pt's great-granddaughter at bedside. Intervention: Provided empathic pastoral listening. Facilitated illness review. Provided prayer. Provided information on how to contact title i paraprofessional, if needed. Outcome: Pt expressed appreciation for visit. Will follow as able. SOREN ARNOLD [employer] [facility] Department O: [phone] Pager: [phone] ([phone] number calling from)
--- NOTE | 2019-02-22 12:40 | Progress Note ---
DATE: 02/22/2019 Psychiatric Progress Note SUBJECTIVE: The patient is evaluated and events noted. The patient is in the room. She is alert, awake, and oriented to situation. She complained of pain. She reports depression, and exacerbated by pain. She denies any problem with sleep. Denies any appetite problems. Denies any suicidal ideation. Denies any hallucination. Denies any side effects from medication. ASSESSMENT: Major depressive disorder, recurrent, [id number]. PLAN: 1. Discontinue Lexapro. 2. Add Cymbalta 30 mg p.o. daily. 3. Continue Neurontin 400 mg p.o. three times a day. 4. Continue Remeron 7.5 mg p.o. at bedtime. 5. Continue with Ativan p.r.n. p.o. 6. Monitor for mood. 7. Supportive therapy. Dictated by Phoebe Camarillo PA-C MD DELMY HebertV/DILLONL /[id number]
--- NOTE | 2019-02-22 13:11 | Consultation ---
DATE OF CONSULTATION: 02/21/2019 Psychiatric Consultation REASON FOR CONSULTATION: To evaluate the patient's depression. HISTORY OF PRESENT ILLNESS: The patient is a 68-year-old female, admitted to the hospital for COPD exacerbation. Psychiatric consultation is called to evaluate the patient's mood. As per the medical record, the patient has history of COPD and neuropathy. She came in for left-sided chest pain. She had cardiac cath done recently a few weeks ago. She also was found to have low hemoglobin of 6.7. She did receive a blood transfusion. According to the note from [facility]. Upon evaluation today, the patient is found to be in the room. She is alert, awake, and oriented to situation, place, and year. The patient admits to feeling depressed and hopeless. She admits to have intermittent passive wishes. She claims that she recently lost her granddaughter 3 weeks ago due to a motor vehicle accident. She claims that in the recent months, she has lost multiple family members. She denies any suicide ideation. She complained of poor sleep, but denies any appetite issue. She denies any side-effects from medications. PAST PSYCHIATRIC HISTORY: The patient reports history of depression. She has had some decreased appetite in the past. She denies alcohol or drug abuse. FAMILY HISTORY: Denies. SOCIAL HISTORY: The patient sates she lives with her . MENTAL STATUS EXAM: The patient is an elderly female. She is alert, awake, and oriented to situation. Mood is depressed. Affect congruent with mood. Psychomotor state is passive. Denies suicidal or homicidal ideation. Denies any hallucination. Thought process is concrete. No delusion, paranoia elicited. Insight and judgment are fair. Memory appears to be grossly intact. CURRENT MEDICATIONS: 1. Spiriva. 2. Albuterol. 3. Morphine. 4. Acetaminophen. 5. Protonix. 6. Toradol. 7. Neurontin 400 mg p.o. three times a day. 8. Lipitor. 9. Azithromycin. 10. Iron. 11. Vitamin B12. 12. Nicotine. 13. Metoprolol. 14. Losartan. 15. Lexapro 20 mg p.o. daily. 16. Furosemide. 17. Glipizide. 18. Plavix. 19. Aspirin. 20. Formoterol. 21. Benadryl p.r.n. 22. Valium p.r.n. LABORATORY DATA: Current labs; WBC 20.91, RBC 4.63, hemoglobin 9.2, hematocrit 32.6, platelets 303. Sodium 138, potassium 3.9, chloride 108, CO2 21, BUN 19, creatinine 0.65. AST 10, ALT 14. ASSESSMENT: Major depressive disorder, recurrent, [id number]. PLAN: 1. Continue Lexapro. 2. Add Remeron 7.5 mg p.o. at bedtime. 3. Continue with Neurontin 400 mg p.o. three times a day. 4. Discontinue Valium p.r.n. 5. Add Ativan p.r.n. p.o. 6. Monitor for mood. 7. Supportive therapy. Thank you for this consultation. We will continue to follow the patient with you during her hospital stay. Dictated by Phoebe Camarillo PA-C Ashlyn Almanza MD QTV/MODL /[id number]
--- NOTE | 2019-02-22 15:21 | Operative Report ---
DATE OF PROCEDURE: 02/22/2019 SURGEON: Yves Chatman MD PROCEDURE: Esophagogastroduodenoscopy with biopsies. INDICATIONS FOR EGD: Upper abdominal pain, anemia. MEDICATIONS: The patient was done under MAC, please see anesthesiologist's note. PROCEDURE IN DETAIL: With the patient in left lateral decubitus position, flexible fiberoptic Olympus gastroscope was introduced into the esophagus under direct visualization without any difficulty. There was some patchy erythema noted in distal esophagus. The scope was then advanced with ease into the stomach. Mucosa overlying the antrum and the body revealed some patchy intense erythema and moderate edema and biopsies were obtained, sent to stain for H pylori. Pylorus was of normal contour and shape, it was intubated with ease and the scope was advanced all the way to the second portion of the duodenum. The scope was then withdrawn slowly. Mucosa overlying the proximal second portion appeared to be within normal limits. Approximately 1 cm polypoid lesion was noted in the duodenal bulb and that was biopsied. The scope was then withdrawn back into the stomach and retroflexed, mucosa overlying the fundus and cardia appeared to be within normal limits. The scope was then straightened out, it was subsequently withdrawn. The patient tolerated the procedure well. IMPRESSION: 1. Distal esophagitis, mild. 2. Gastritis, biopsied. Biopsies sent to stain for Helicobacter pylori. 3. Approximately 1 cm duodenal bulb nodule, biopsied. PLAN: Follow up histology. Continue current therapy. Yves Chatman MD [facility] [place] /[id number] cc: Rafy Chatman MD
[2019-02-22] MEDS: AZITHROMYCIN 500MG/NS 250 ML 250 ML IV SCH (16:00)
--- NOTE | 2019-02-22 18:18 | NUR ---
Attempts times 4 to restart iv and will seek assistance from the oncoming shift.
--- NOTE | 2019-02-22 19:15 | NUR ---
Patient received sitting in bed. AAO x 3. Patient had no complaints of pain. No signs of respiratory distress. Patient has no IV access. Fall precautions implemented. Call light within reach.
[2019-02-22] MEDS ORDERED: PROPOFOL IV EMULSION 10 MG/ML 20 ML VIAL ONE (19:21)
[2019-02-22] MEDS ORDERED: LIDOCAINE HCL 2% LOCAL INJ 5 ML SDV VIAL INJ ONE (19:21)
--- NOTE | 2019-02-22 20:28 | NUR ---
Several attempts made for IV access proved futile. Patient does not want to be stuck anymore. Dr. Bry Chatman paged to find out if patient can have her meds by mouth instead of intravenously. Awaiting call back.
[2019-02-22] MEDS ORDERED: MIRTAZAPINE 15 MG TAB PO SCH (21:00)
[2019-02-22] MEDS: ATORVASTATIN 20 MG TAB PO SCH (21:03)
--- NOTE | 2019-02-22 22:08 | NUR ---
Dr. Bry Chatman re-paged for orders of "PO" meds. Awaiting call back.
--- NOTE | 2019-02-22 23:08 | NUR ---
22g started in right hand, patient experienced no complications, no signs of infiltration noted, drawing back blood, patient verbalizes no pain. educated patient and marcelo rn on monitoring iv site for signs of infiltration.
[2019-02-23] VITALS (7 sets, daily range): BP systolic 125–152; BP diastolic 46–72
[2019-02-23] MEDS: ALBUTEROL SULFATE HFA 8GM INHALATION AEROSOL INH SCH ×2 (01:00→07:00)
[2019-02-23] MEDS: PANTOPRAZOLE 40 MG 10ML VIAL IV SCH ×2 (01:07→16:31)
[2019-02-23] MEDS: ALBUTEROL/IPRATROPIUM 3 ML NEB NEB SCH ×3 (03:00→11:00)
[2019-02-23] MEDS: KETOROLAC TROMETHAMINE 30 MG/ML VIAL IV PRN (04:21)
[2019-02-23] MEDS: TIOTROPIUM 18 MCG INH POWDER INH SCH (06:00)
[2019-02-23] MEDS: FORMOTEROL FUMARATE 20 MCG/2 ML VIAL IH SCH (07:00)
[2019-02-23 08:27] LABS: BASOPHILS % 0.2 % (0.0-1.0); EOSINOPHILS # (AUTO) 0.7 (0.0-0.4); HEMATOCRIT 33.6 % (34.2-44.1); HEMOGLOBIN 9.6 g/dL (12.0-16.0); MEAN CORPUSCULAR HEMOGLOBIN 20.3 pg (28-32); MEAN CORPUSCULAR HGB CONC 28.6 g/dL (31-35); MEAN CORPUSCULAR VOLUME 70.9 fL (81-99); MONOCYTES # (AUTO) 0.7 (0.2-0.8); MONOCYTES % 5.9 % (4.4-11.3); NEUTROPHILS # (AUTO) 8.5 (2.1-6.9); NEUTROPHILS % 70.6 % (38.7-80.0); PLATELET COUNT 301 x10e3/uL (140-360); RED BLOOD COUNT 4.74 x10e6/uL (3.6-5.1); RED CELL DISTRIBUTION WIDTH 27.8 % (11.7-14.4)
[2019-02-23 08:38] LABS: BLOOD UREA NITROGEN 10 mg/dL (7-26); BUN/CREATININE RATIO 16 (6-25); CALCIUM 8.7 mg/dL (8.4-10.2); CARBON DIOXIDE 24 mmol/L (22-29); CHLORIDE 109 mmol/L (98-107); CREATININE, SERUM 0.61 mg/dL (0.57-1.11); EST GLOMERULAR FILTRATION RATE > 60 ML/MIN (60-); GLUCOSE 180 mg/dL (74-118); SODIUM 141 mmol/L (136-145)
[2019-02-23] MEDS: GLIPIZIDE 5 MG TAB PO SCH (09:42)
[2019-02-23] MEDS: NICOTINE 21 MG/EA PATCH TOP SCH (09:43)
[2019-02-23] MEDS: CLOPIDOGREL BISULFATE 75 MG TAB PO SCH (09:43)
[2019-02-23] MEDS: DULOXETINE HCL 30 MG DELAYED RELEASE PO SCH (09:43)
[2019-02-23] MEDS: METOPROLOL TARTRATE 25 MG TAB PO SCH (09:43)
[2019-02-23] MEDS: IRON SUCROSE 100 MG in SODIUM CHLORIDE 0.9% 100 ML 100 ML IV SCH (09:43)
[2019-02-23] MEDS: ASPIRIN 81 MG CHEW TAB PO SCH (09:43)
[2019-02-23] MEDS: GABAPENTIN 400 MG CAP PO SCH ×2 (09:43→16:31)
[2019-02-23] MEDS: CYANOCOBALAMIN INJ 1,000 MCG/ML VIAL IM SCH (09:43)
[2019-02-23] MEDS: LOSARTAN POTASSIUM 100 MG TAB PO SCH (09:43)
[2019-02-23 10:54] LABS: ANISOCYTOSIS MODERATE; EOSINOPHILS % (MANUAL) 5 % (0-7); LYMPHOCYTES % (MANUAL) 19 % (19-48); MONOCYTES % (MANUAL) 3 % (3.4-9.0); NEUTROPHILS % (MANUAL) 71 % (40-74); OVALOCYTES FEW; POLYCHROMASIA FEW
[2019-02-23 10:55] LABS: ELLIPTOCYTE, RBC SLIGHT; PLATELET ESTIMATE ADEQUATE; PLATELET MORPHOLOGY COMMENT NORMAL; RBC MORPHOLOGY COMMENT ABNORMAL
--- NOTE | 2019-02-23 11:21 | Progress Note ---
DATE: 02/23/2019 Psychiatric Progress Note SUBJECTIVE: The patient was evaluated and events noted. The patient is in the room. She is alert, awake, and oriented to situation. She reports her mood is doing better and less depressed, less anxious. She denies any problems with sleep or appetite. She denies any hallucinations. She denies any suicidal ideation. She denies any side effects from medication. ASSESSMENT: Major depressive disorder, recurrent, moderate. PLAN: 1. Continue with Remeron 7.5 mg p.o. at bedtime. 2. Continue with Neurontin 400 mg p.o. three times a day. 3. Continue with Cymbalta 30 mg p.o. daily. 4. Continue Ativan p.r.n. p.o. 5. Monitor for mood. 6. Supportive therapy. Dictated by Phoebe Camarillo PA-C Ashlyn Almanza MD [facility] /[id number]
[2019-02-23] MEDS: MORPHINE SULFATE INJ 4 MG/ML INJ 1ML IV PRN (16:30)
[2019-02-23] MEDS: AZITHROMYCIN 500MG/NS 250 ML 250 ML IV SCH (16:31)
--- NOTE | 2019-02-23 16:55 | NUR ---
IMM letter delivered and reminded pt of her Medicare Rights. Pt verbalized understanding and stated she was ready to go home. States she's supposed to be discharging home today. Signed copy placed in chart. Copy to pt.
--- NOTE | 2019-02-23 17:00 | NUR ---
spoke to and states patient can d/c home and f/u in his clinic, patient to call GI clinic for appointment.
[2019-02-23] MEDS ORDERED: DIFLUCAN200 MG PO (18:08)
[2019-02-23] MEDS ORDERED: NORCO 5-325 TA1 EACH PO (18:09)
--- NOTE | 2019-02-23 19:50 | NUR ---
patient received awake, alert, sitting up in bed. vss. no c/o pain noted. patient to be discharged home tonight. patient verbalizes understanding of this. patient waiting for ride home.
--- NOTE | 2019-02-23 20:22 | NUR ---
iv to right hand d/c'd and clean, dry dressing applied to site. patients discharge instructions/RXs given to patient. patient discharged home with at this time.
== END 2019-02-23 20:22 | disposition home or self-care (01) | DRG 191 ==
LOC: ER 12:23 → ERHOLD 15:07 → IMCU 17:07 → OBSVTOIN 02-20 10:08 → MED/SURG2 02-21 10:23
PROC: 30233N1 Transfusion of Nonautologous Red Blood Cells into Peripheral Vein, Percutaneous Approach (ICD-10-PCS; principal; 2019-02-19)
PROC: 0DB98ZX Excision of Duodenum, Via Natural or Artificial Opening Endoscopic, Diagnostic (ICD-10-PCS; 2019-02-22)
PROC: 0DB78ZX Excision of Stomach, Pylorus, Via Natural or Artificial Opening Endoscopic, Diagnostic (ICD-10-PCS; 2019-02-22)
PROC: 0DB68ZX Excision of Stomach, Via Natural or Artificial Opening Endoscopic, Diagnostic (ICD-10-PCS; 2019-02-22)
PROC: 0DB38ZX Excision of Lower Esophagus, Via Natural or Artificial Opening Endoscopic, Diagnostic (ICD-10-PCS; 2019-02-22)
DX: J44.1 Chronic obstructive pulmonary disease with (acute) exacerbation (principal); F33.2 Major depressive disorder, recurrent severe without psychotic features; M94.0 Chondrocostal junction syndrome [Tietze]; G62.9 Polyneuropathy, unspecified; E11.40 Type 2 diabetes mellitus with diabetic neuropathy, unspecified; D50.9 Iron deficiency anemia, unspecified; E11.65 Type 2 diabetes mellitus with hyperglycemia; F17.200 Nicotine dependence, unspecified, uncomplicated; F41.9 Anxiety disorder, unspecified; E78.5 Hyperlipidemia, unspecified; K21.0 Gastro-esophageal reflux disease with esophagitis; K29.70 Gastritis, unspecified, without bleeding; K31.89 Other diseases of stomach and duodenum; Z99.81 Dependence on supplemental oxygen; Z86.010 Personal history of colon polyps; Z79.84 Long term (current) use of oral hypoglycemic drugs; Z79.02 Long term (current) use of antithrombotics/antiplatelets; Z79.82 Long term (current) use of aspirin; Z88.6 Allergy status to analgesic agent; Z88.1 Allergy status to other antibiotic agents; Z88.5 Allergy status to narcotic agent; Z88.8 Allergy status to other drugs, medicaments and biological substances
CPT/HCPCS: 36415; 43239; 71045; 71101; 71260; 80048; 80053; 80307; 81001; 82550; 82553; 82607; 82728; 82746; 82948; 83540; 84466; 84484; 85025; 86850; 86900; 86920; 88305; 88312; 93005; 94640; 99284; G0378; J0456; J1200; J1756; J1885; J1940; J2001; J2270; J2930; J3420; J7050; P9016; Q9967

== ENCOUNTER 2019-03-09 12:56 | Emergency (ER) | payer MEDICARE, BC ==
[~2019-03-09] VITALS: Ht 154.9 cm; Wt 64.0 kg
[~2019-03-09 12:56] MED LIST changes: +BENADRYL ITCH28.3 GM TOP; +DIFLUCAN200 MG PO; +HYDROCODON-ACE1 EAC9 PO
--- OUTSIDE RECORDS SUMMARY | 2019-03-09 13:01 | XMS REPORT | Continuity of Care Document ---
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 Role Phone [employer] Unavailable Unavailable Problems Problem Status Onset Date Classification Date Reported Comments Source PVD Active 04/30/2015 [facility] FALL/ WEAKNESS Active 04/13/2015 [facility] SYNCOPE Active 04/13/2015 [facility] LOWER ABDOMINAL PAIN/BACK PAIN Active 05/20/2013 [facility] RIGHT SIDE PYELONEPHRITIS Active 05/20/2013 [facility] UNK Active 05/09/2013 [facility] DIVERTICULITIS Active 04/01/2003 [facility] Acid reflux Resolved Problem 05/06/2015 [facility] [place] Anxiety depression Active Problem 05/06/2015 [facility] [place] COPD - Chronic obstructive pulmonary disease Active Problem 05/06/2015 [facility] [place] Cough Active Problem 05/06/2015 [facility] [place] Diabetes mellitus Active Problem 05/06/2015 [facility] [place] Diverticulitis Active Problem 05/06/2015 [facility] [place] HTN - Hypertension Active Problem 05/06/2015 [facility] [place] Neuropathy Active Problem 05/06/2015 [facility] [place] Osteoarthritis Active Problem 05/06/2015 [facility] [place] Pneumonia1 Resolved Problem 05/06/2015 last episode 8 yrs ago [facility] [place] SOB - Shortness of breath Active Problem 05/06/2015 [facility] [place] MICROSCOPIC HEMATURIA Active [facility] [employer] [employer] BL[employer]DER Active [facility] SYNCOPE AND COLLAPSE Active [facility] Medications Medication Details Route Status Patient Instructions Ordering Provider Order Date Source budesonide-formoterol 160 mcg-4.5 mcg/inh inhalation aerosol with adapter 2 puff, Route: INHALATION, Drug Form: AERO/A, Dosing Weight 67.273, kg, BID, Start date: 04/18/15 14:48:00, Duration: 30 day, Stop date: 05/18/15 9:00:00Notes: (Same as: Symbicort) Inactive 04/18/2015 [facility] Nitroglycerin 0.4 mg, 1 tab, Route: SL, Drug form: TAB, Q5Min, Dosing Weight 63.182, kg, PRN Chest Pain, Start date: 04/18/15 10:06:00, Duration: 3 doses or times, Stop date: Limited # of timesNotes: (Same as:Nitroqu ick, Nitrostat) "Do Not Crush" Sublingual tablet Inactive 04/18/2015 [facility] Metformin 500 mg, 1 tab, Route: PO, Drug form: TAB, Lunch, Dosing Weight 67.273, kg, Start date: 04/17/15 12:00:00, Duration: 30 day, Stop date: 05/16/15 12:00:00Notes: (Same as: Glucophage) Take with meal No Longer Active 04/17/2015 [facility] Ativan 1 mg, Route: IVP, Drug form: INJ, ONCE, Dosing Weight 63.182, kg, PRN Anxiety, Start date: 04/17/15 11:28:00 Inactive 04/17/2015 [facility] Restoril 15 mg, 1 cap, Route: PO, Drug form: CAP, Bedtime, Dosing Weight 63.182, kg, PRN Sleep, Start date: 04/16/15 23:49:00, Duration: 30 day, Stop date: 05/16/15 23:48:00Notes: (Same As: Restoril) No Longer Active 04/17/2015 [facility] Haldol 5 mg, 1 mL, Route: IM, Drug form: INJ, ONCALL, Dosing Weight 63.182, kg, Start date: 04/16/15 13:00:00Notes: (Same as: Haldol) Inactive 04/16/2015 [facility] Ativan 1 mg, 0.5 mL, Route: IV, Drug form: INJ, ONCALL, Dosing Weight 63.182, kg, PRN Other -See Comment, Start date: 04/16/15 12:55:00, Duration: 30 day, Stop date: 05/16/15 12:54:00Notes: (Same as: Ativan) No Longer Active 04/16/2015 [facility] Protonix 40 mg, 1 tab, Route: PO, Drug form: ECTAB, Before Breakfast, Start date: 04/16/15 7:30:00, Duration: 30 day, Stop date: 05/15/15 7:30:00Notes: Tablet should not be chewed or crushed. (Same as: Protonix) No Longer Active 04/16/2015 [facility] atorvastatin 20 mg, 2 tab, Route: PO, Drug form: TAB, Bedtime, Dosing Weight 67.273, kg, Start date: 04/14/15 21:00:00, Duration: 30 day, Stop date: 05/13/15 21:00:00Notes: (Same As: Lipitor) No Longer Active 04/15/2015 [facility] Haldol 5 mg, 1 mL, Route: IM, Drug form: INJ, ONCE, Dosing Weight 63.182, kg, PRN Other -See Comment, Administer prior to MRI/MRA, Start date: 04/14/15 17:45:00, ClaustrophobiaNotes: (Same as: Haldol) No Longer Active 04/14/2015 [facility] Ativan 1 mg, 0.5 mL, Route: IVP, Drug form: INJ, ONCE, Dosing Weight 63.182, kg, PRN Other -See Comment, Administer prior to MRI/MRA, Start date: 04/14/15 17:45:00, ClaustrophobiaNotes: (Same as: Ativan) No Longer Active 04/14/2015 [facility] Ativan 0.5 mg, 0.25 mL, Route: IVP, Drug form: INJ, ONCE, Dosing Weight 63.182, kg, PRN Other -See Comment, At time of MRI if needed, Start date: 04/14/15 15:25:00, MRINotes: (Same as: Ativan) Inactive 04/14/2015 [facility] Ativan 0.5 mg, 0.25 mL, Route: IVP, Drug form: INJ, ONCE, Dosing Weight 63.182, kg, PRN Other -See Comment, once prior to MRI, Start date: 04/14/15 15:22:00, MRINotes: (Same as: Ativan) Inactive 04/14/2015 [facility] Glipizide 5 MG Oral Tablet 5 mg, 1 tab, Route: PO, Drug form: TAB, Lunch, Dosing Weight 67.273, kg, Start date: 04/14/15 12:00:00, Duration: 30 day, Stop date: 05/13/15 12:00:00Notes: (Same as: Glucotrol) 30 min before meals. No Longer Active 04/14/2015 [facility] Metformin 1,000 mg, 2 tab, Route: PO, Drug form: TAB, Lunch, Dosing Weight 67.273, kg, Start date: 04/14/15 12:00:00, Duration: 30 day, Stop date: 05/13/15 12:00:00Notes: (Same as: Glucophage) Take with meal No Longer Active 04/14/2015 [facility] metoprolol tartrate 25 mg, 1 tab, Route: PO, Drug form: TAB, Q12H, Dosing Weight 67.273, kg, Start date: 04/14/15 9:00:00, Duration: 30 day, Stop date: 05/13/15 21:00:00Notes: (Same as: Lopressor) No Longer Active 04/14/2015 [facility] Spiriva 18 microgram, 1 inhalation, Route: INHALATION, Drug form: CAP, Daily, Dosing Weight 67.273, kg, Start date: 04/14/15 9:00:00, Duration: 30 day, Stop date: 05/13/15 9:00:00Notes: (Same As: Spiriva). No Longer Active 04/14/2015 [facility] Symbicort 160/4.5 inhalation aerosol with adapter 2 puff, Route: INHALATION, Drug Form: AERO/A, Dosing Weight 67.273, kg, BID, Start date: 04/14/15 9:00:00, Duration: 30 day, Stop date: 05/13/15 17:00:00Notes: (Same as: Symbicort) No Longer Active 04/14/2015 [facility] clopidogrel 75 mg, 1 tab, Route: PO, Drug form: TAB, Daily, Dosing Weight 67.273, kg, Start date: 04/14/15 9:00:00, Duration: 30 day, Stop date: 05/13/15 9:00:00Notes: (Same As: Plavix) No Longer Active 04/14/2015 [facility] Losartan 100 mg, 2 tab, Route: PO, Drug form: TAB, Daily, Dosing Weight 67.273, kg, Start date: 04/14/15 9:00:00, Duration: 30 day, Stop date: 05/13/15 9:00:00Notes: (Same as: Cozaar) No Longer Active 04/14/2015 [facility] Naproxen 500 mg, 2 tab, Route: PO, Drug form: TAB, [id number], Dosing Weight 63.182, kg, Start date: 04/14/15 2:00:00, Stop date: 05/13/15 14:00:00Notes: (Same as: Naprosyn) Take with food. No Longer Active 04/14/2015 [facility] Nitroglycerin 0.4 MG Sublingual Tablet 0.4 mg, 1 tab, Route: SL, Drug form: TAB, Q5Min, Dosing Weight 63.182, kg, PRN Chest Pain, Start date: 04/14/15 1:43:00, Duration: 30 day, Stop date: 05/14/15 1:42:00Notes: (Same as:Nitroquick, Nitrostat) "Do Not Crush" Sublingual tablet No Longer Active 04/14/2015 [facility] Atropine 0.5 mg, 5 mL, Route: IVP, Drug form: INJ, ONCE, Dosing Weight 63.182, kg, PRN Bradycardia, Start date: 04/14/15 1:43:00, symptomatic bradycardia HR No Longer Active 04/14/2015 [facility] Insulin, Aspart, Human 2 unit, 0.02 [...] days from Date No Longer Active 04/14/2015 [facility] Glucagon 1 mg, Route: IM, Drug form: PDR/INJ, PRN, Dosing Weight 63.182, kg, PRN Blood Glucose Results, Start date: 04/14/15 1:41:00, Duration: 30 day, Stop date: 05/14/15 1:40:00 No Longer Active 04/14/2015 [facility] Dextrose 50% Syringe 25 gm, 50 mL, Route: IVP, Drug Form: INJ, Dosing Weight 63.182, kg, PRN, PRN Blood Glucose Results, Start date: 04/14/15 1:41:00, Duration: 30 day, Stop date: 05/14/15 1:40:00 No Longer Active 04/14/2015 [facility] pantoprazole 40 mg, Route: IVP, Drug form: INJ, Daily, Dosing Weight 67.273, kg, Priority: STAT, Start date: 04/14/15 1:38:00, Duration: 30 day, Stop date: 05/13/15 9:00:00Notes: For IV push reconstitute with 10 ml 0.9% sodium chloride and push over 2 minutes. (Same as: Protonix) No Longer Active 04/14/2015 [facility] Albuterol 0.833 MG/ML / Ipratropium Broussard 0.167 MG/ML Inhalant Solution [DuoNeb] 3 ml, Route: INHALATION, Drug Form: SOLN, Dosing Weight 67.273, kg, PRN, PRN Respiratory Protocol, Start date: 04/14/15 1:38:00, Duration: 30 day, Stop date: 05/14/15 1:37:00Notes: (Same as: Duoneb) No Longer Active 04/14/2015 [facility] Morphine 4 mg, 2 mL, Route: IVP, Drug form: INJ, Q3H, Dosing Weight 67.273, kg, PRN Pain Score 4-6, Start date: 04/14/15 1:38:00, Duration: 30 day, Stop date: 05/14/15 1:37:00Notes: (Same as:MORPhine Sulfate) No Longer Active 04/14/2015 [facility] Ondansetron 4 mg, 2 mL, Route: IVP, Drug form: INJ, Q6H, Dosing Weight 63.182, kg, PRN Nausea & Vomiting, Start date: 04/14/15 1:38:00, Duration: 30 day, Stop date: 05/14/15 1:37:00Notes: (Same as: Kentrell) MEDICATION WASTE Product Size: 4 mg Product Wasted: ___ mg No Longer Active 04/14/2015 [facility] Acetaminophen 650 mg, 2 tab, Route: PO, Drug form: TAB, Q4H, Dosing Weight 63.182, kg, PRN Pain 1-3/Temp > 100.4 F, Start date: 04/14/15 1:38:00, Duration: 30 day, Stop date: 05/14/15 1:37:00Notes: Do not exceed 4 gm/day. (Same as: Tylenol) No Longer Active 04/14/2015 [facility] Sodium Chloride 0.154 MEQ/ML Injectable Solution 1,000 mL, Rate: 75 ml/hr, Infuse over: 13.3 hr, Route: IV, Dosing Weight 63.182 kg, Total Volume: 1,000, Start date: 04/14/15 1:38:00, Duration: 30 day, Stop date: 05/14/15 1:37:00 No Longer Active 04/14/2015 [facility] Saline Flush 0.9% 10 ml, Route: IVP, Drug Form: INJ, Dosing Weight 63.182, kg, PRN, PRN Line Flush, Start date: 04/14/15 1:38:00, Duration: 30 day, Stop date: 05/14/15 1:37:00Notes: (Same as: BD Posiflush) No Longer Active 04/14/2015 [facility] tramadol hydrochloride 50 MG Oral Tablet 50 mg, 1 tab, Route: PO, Drug form: TAB, Q6H, Dosing Weight 67.273, kg, PRN Pain Score 1-5, Start date: 04/14/15 0:02:00, Duration: 30 day, Stop date: 05/14/15 0:01:00Notes: Not to exceed 400mg/day. (Same As: Ultram) No Longer Active 04/14/2015 [facility] Acetaminophen 325 MG / butalbital 50 MG / Caffeine 40 MG Oral Tablet 1 tab, Route: PO, Drug Form: TAB, Dosing Weight 67.273, kg, Q4H, PRN Headache 1-5, Start date: 04/14/15 0:02:00, Duration: 30 day, Stop date: 05/14/15 0:01:00Notes: (hbhczymkrytep-axktndnvqk-hsoxmvpg 325-50-40mg) Do not exceed 4 gm/day of acetaminophen. (Same as: Esgic, Fioricet) No Longer Active 04/14/2015 [facility] 200 ACTUAT Albuterol 0.09 MG/ACTUAT Metered Dose Inhaler [ProAir HFA] 2 puff, Route: INHALATION, Drug Form: AERO/A, Dosing Weight 67.273, kg, Q6H, PRN Wheezing, Start date: 04/14/15 0:02:00, Duration: 30 day, Stop date: 05/14/15 0:01:00Notes: Albuterol 90 microgram/inh 8gm HFA Same as: Ventolin, Proventil No Longer Active 04/14/2015 [facility] Acetaminophen 325 MG / butalbital 50 MG / Caffeine 40 MG Oral Tablet 1 tab, PO, Q4H, PRN Headache, Not to exceed more than 6 tablets in 24 hoursSpecial Instructions: Not to exceed more than 6 tablets in 24 hours Active 04/14/2015 [facility] atorvastatin 20 mg oral tablet 20 mg=1 tab, PO, Bedtime Active 04/14/2015 [facility] clopidogrel 75 mg oral tablet 75 mg=1 tab, PO, Daily Active 04/14/2015 [facility] losartan 100 mg oral tablet 100 mg=1 tab, PO, Daily Active 04/14/2015 [facility] Metoprolol Tartrate 25 mg oral tablet 25 mg=1 tab, PO, BID Active 04/14/2015 [facility] Symbicort 160/4.5 inhalation aerosol with adapter 2 puff, INHALATION, BID Active 04/14/2015 [facility] metFORmin 500 mg, PO, BID, Substitution Allowed Active 05/22/2013 [facility] simvastatin 20 mg, 1 tab, Route: PO, Drug form: TAB, Bedtime, Dosing Weight 65.909, kg, Start date: 05/21/13 21:00:00, Duration: 30 day, Stop date: 06/19/13 21:00:00(Same as: Zocor) No Longer Active Alex 05/22/2013 [facility] ketorolac 10 mg, 0.33 mL, Route: INJ, Drug form: INJ, Q6H, Dosing Weight 67.273, kg, Start date: 05/21/13 12:00:00, Duration: 4 day, Stop date: 05/25/13 6:00:00(Same as:Toradol) IV bolus must be given >15 seconds. Give IM administration slowly and deeply into the muscle. Not for use > 4 days No Longer Active Marcella 05/21/2013 [facility] pneumococcal 23-valent vaccine 0.5 ml, Route: IM, Drug Form: INJ, Start date: 05/21/13 9:00:00, Stop date: 05/21/13 9:00:00 Inactive SYSTEM 05/21/2013 [facility] influenza virus vaccine, inactivated 0.5 ml, Route: IM, Drug Form: SUSP, Start date: 05/21/13 9:00:00, Stop date: 05/21/13 9:00:00 Inactive SYSTEM 05/21/2013 [facility] Lyrica 50 mg, 1 cap, Route: PO, Drug form: CAP, TID, Dosing Weight 65.909, kg, Start date: 05/21/13 9:00:00, Duration: 30 day, Stop date: 06/19/13 17:00:00Same as Lyrica No Longer Active Alex 05/21/2013 [facility] Pyridium 100 mg, 1 tab, Route: PO, Drug form: TAB, TID, Dosing Weight 65.909, kg, Start date: 05/21/13 9:00:00, Duration: 30 day, Stop date: 06/19/13 17:00:00Give with meals. (Same as: Pyridium) No Longer Active Alex 05/21/2013 [facility] Spiriva 18 microgram, 1 inhalation, Route: INHALATION, Drug form: CAP, Daily, Dosing Weight 65.909, kg, Start date: 05/21/13 9:00:00, Duration: 30 day, Stop date: 06/19/13 9:00:00(Same As: Spiriva). No Longer Active Alex 05/21/2013 [facility] metFORmin 1000 mg oral tablet 1,000 mg, 2 tab, Route: PO, Drug form: TAB, BID, Dosing Weight 65.909, kg, Start date: 05/21/13 9:00:00, Duration: 30 day, Stop date: 06/19/13 17:00:00(Same as: Glucophage) Take with meal No Longer Active Jeffery 05/21/2013 [facility] glipiZIDE 5 mg oral tablet 5 mg, 1 tab, Route: PO, Drug form: TAB, Daily, Dosing Weight 65.909, kg, Start date: 05/21/13 9:00:00, Duration: 30 day, Stop date: 06/19/13 9:00:00(Same as: Glucotrol) 30 min before meals. No Longer Active Alex 05/21/2013 [facility] amLODipine 2.5 mg, 1 tab, Route: PO, Drug form: TAB, Daily, Dosing Weight 65.909, kg, Start date: 05/21/13 9:00:00, Duration: 30 day, Stop date: 06/19/13 9:00:00(Same as: Norvasc) No Longer Active Alex 05/21/2013 [facility] Sodium Chloride 0.9% IV 1,000 mL 1,000 mL, Rate: 150 ml/hr, Infuse over: 6.7 hr, Route: IV, Dosing Weight 67.273 kg, Total Volume: 1,000, Start date: 05/20/13 22:31:00, Duration: 30 day, Stop date: 06/19/13 22:30:00 No Longer Active Alex 05/21/2013 [facility] Sodium Chloride 0.9% IV 1,000 mL 1,000 mL, Rate: 150 ml/hr, Infuse over: 6.7 hr, Route: IV, Dosing Weight 65.909 kg, Total Volume: 1,000, Start date: 05/20/13 22:29:00, Duration: 30 day, Stop date: 06/19/13 22:28:00 Inactive Alex 05/21/2013 [facility] acetaminophen 650 mg, 20.3 mL, Route: PO, Drug form: LIQ, Q4H, Dosing Weight 65.909, kg, PRN Pain 1-3/Temp > 100.4 F, Start date: 05/20/13 22:22:00, Duration: 30 day, Stop date: 06/19/13 22:21:00Max ersvowghubitz=3875cp/day (4 gm/day). (Same as: Tylenol) No Longer Active Alex 05/21/2013 [facility] ondansetron 4 mg, 2 mL, Route: IVP, Drug form: INJ, Q8H, Dosing Weight 65.909, kg, PRN Nausea & Vomiting, Start date: 05/20/13 22:22:00, Duration: 30 day, Stop date: 06/19/13 22:21:00(Same as: Zofran) No Longer Active Alex 05/21/2013 [facility] glucagon 1 mg, Route: IM, Drug form: PDR/INJ, PRN, Dosing Weight 65.909, kg, PRN Blood Glucose Results, Start date: 05/20/13 22:20:00, Duration: 30 day, Stop date: 06/19/13 21:19:00 No Longer Active Alex 05/21/2013 [facility] insulin aspart 8 unit, 0.08 mL, [...] from Date No Longer Active Alex 05/21/2013 [facility] Dextrose 50% Syringe 25 gm, 50 mL, Route: IVP, Drug Form: INJ, Dosing Weight 65.909, kg, PRN, PRN Blood Glucose Results, Start date: 05/20/13 22:20:00, Duration: 30 day, Stop date: 06/19/13 21:19:00 No Longer Active Alex 05/21/2013 [facility] ProAir HFA 90 mcg/inh inhalation aerosol with adapter 2 puff, Route: INHALATION, Drug Form: AERO/A, Dosing Weight 65.909, kg, Q6H, PRN as needed for wheezing, Start date: 05/20/13 22:20:00, Duration: 30 day, Stop date: 06/19/13 22:19:00Albuterol 90 microgram/inh 8gm HFA Same as: Ventolin Proventil No Longer Active Alex 05/21/2013 [facility] insulin aspart 6 unit, 0.06 mL, [...] from Date No Longer Active Alex 05/21/2013 [facility] morphine Sulfate 1 mg, 0.5 mL, Route: IVP, Drug form: INJ, Q4H, Dosing Weight 65.909, kg, PRN Pain Score 4-6, Start date: 05/20/13 22:19:00, Duration: 30 day, Stop date: 06/19/13 22:18:00(Same as:MORPhine Sulfate) No Longer Active Alex 05/21/2013 [facility] hydrALAZINE 10 mg, 0.5 mL, Route: IVP, Drug form: INJ, Q6H, Dosing Weight 65.909, kg, PRN Other -See Comment, Start date: 05/20/13 22:19:00, Duration: 30 day, Stop date: 06/19/13 22:18:00, SBP > 170(Same as: Apr esoline) No Longer Active Alex 05/21/2013 [facility] DuoNeb inhalation solution 3 ml, Route: INHALATION, Drug Form: SOLN, Dosing Weight 65.909, kg, PRN, PRN Respiratory Protocol, Start date: 05/20/13 22:19:00, Duration: 30 day, Stop date: 06/19/13 21:18:00(Same as: Duoneb) No Longer Active Alex 05/21/2013 [facility] Dextrose 50% Syringe 12.5 gm, 25 mL, Route: IVP, Drug Form: INJ, Dosing Weight 65.909, kg, PRN, PRN Blood Glucose Results, Start date: 05/20/13 22:19:00, Duration: 30 day, Stop date: 06/19/13 21:18:00 No Longer Active Alex 05/21/2013 [facility] Saline Flush 0.9% 5 ml, Route: IVP, Drug Form: INJ, Dosing Weight 65.909, kg, PRN, PRN Line Flush, Start date: 05/20/13 22:19:00, Duration: 30 day, Stop date: 06/19/13 21:18:00(Same as: BD Posiflush) No Longer Active Alex 05/21/2013 [facility] Sodium Chloride 0.9% IV 1,000 mL 1,000 mL, Rate: 125 ml/hr, Infuse over: 8 hr, Route: IV, Dosing Weight 65.909 kg, Total Volume: 1,000, Start date: 05/20/13 22:19:00, Duration: 30 day, Stop date: 06/19/13 22:18:00 Inactive White 05/21/2013 [facility] simvastatin 20 mg, 1 tab, Route: PO, Drug form: TAB, Bedtime, Dosing Weight 65.909, kg, Start date: 05/20/13 21:00:00, Duration: 30 day, Stop date: 06/18/13 21:00:00(Same as: Zocor) Inactive Alex 05/21/2013 [facility] hydrALAZINE 10 mg, 0.5 mL, Route: IVP, Drug form: INJ, Q6H, Dosing Weight 65.909, kg, PRN Other -See Comment, Start date: 05/20/13 20:52:00, Duration: 30 day, Stop date: 06/19/13 20:51:00, SBP > 170(Same as: Apr esoline) Inactive Alex 05/21/2013 [facility] DuoNeb inhalation solution 3 ml, Route: INHALATION, Drug Form: SOLN, Dosing Weight 65.909, kg, PRN, PRN Respiratory Protocol, Start date: 05/20/13 20:52:00, Duration: 30 day, Stop date: 06/19/13 19:51:00(Same as: Duoneb) Inactive Alex 05/21/2013 [facility] Sodium Chloride 0.9% IV 1,000 mL 1,000 mL, Rate: 125 ml/hr, Infuse over: 8 hr, Route: IV, Dosing Weight 65.909 kg, Total Volume: 1,000, Start date: 05/20/13 20:52:00, Duration: 30 day, Stop date: 06/19/13 20:51:00 Inactive Alex 05/21/2013 [facility] Saline Flush 0.9% 5 ml, Route: IVP, Drug Form: INJ, Dosing Weight 65.909, kg, PRN, PRN Line Flush, Start date: 05/20/13 20:52:00, Duration: 30 day, Stop date: 06/19/13 19:51:00(Same as: BD Posiflush) Inactive Alex 05/21/2013 [facility] morphine Sulfate 1 mg, 0.5 mL, Route: IVP, Drug form: INJ, Q4H, Dosing Weight 65.909, kg, PRN Pain Score 4-6, Start date: 05/20/13 20:52:00, Duration: 30 day, Stop date: 06/19/13 20:51:00(Same as:MORPhine Sulfate) Inactive Alex 05/21/2013 [facility] ondansetron 4 mg, 2 mL, Route: IVP, Drug form: INJ, Q8H, Dosing Weight 65.909, kg, PRN Nausea & Vomiting, Start date: 05/20/13 20:52:00, Duration: 30 day, Stop date: 06/19/13 20:51:00(Same as: Zofran) Inactive Alex 05/21/2013 [facility] acetaminophen 650 mg, 20.3 mL, Route: PO, Drug form: LIQ, Q4H, Dosing Weight 65.909, kg, PRN Pain 1-3/Temp > 100.4 F, Start date: 05/20/13 20:52:00, Duration: 30 day, Stop date: 06/19/13 20:51:00Max qybanafuajidq=5094pc/day (4 gm/day). (Same as: Tylenol) Inactive Alex 05/21/2013 [facility] ProAir HFA 90 mcg/inh inhalation aerosol with adapter 180 microgram, Route: INHALATION, Drug Form: AERO/A, Dosing Weight 65.909, kg, Q6H, PRN as needed for wheezing, Start date: 05/20/13 20:50:00, Duration: 30 day, Stop date: 06/19/13 20:49:00Albuterol 90 microgram/inh 8gm HFA Same as: Ventshad Proventil Inactive Alex 05/21/2013 [facility] insulin aspart 2 unit, 0.02 mL, [...] in days from Date Inactive Alex 05/21/2013 [facility] Dextrose 50% Syringe 12.5 gm, 25 mL, Route: IVP, Drug Form: INJ, Dosing Weight 65.909, kg, PRN, PRN Blood Glucose Results, Start date: 05/20/13 20:50:00, Duration: 30 day, Stop date: 06/19/13 19:49:00 Inactive Alex 05/21/2013 [facility] glucagon 1 mg, Route: IM, Drug form: PDR/INJ, PRN, Dosing Weight 65.909, kg, PRN Blood Glucose Results, Start date: 05/20/13 20:50:00, Duration: 30 day, Stop date: 06/19/13 19:49:00 Inactive Alex 05/21/2013 [facility] acetaminophen 650 mg, 2 tab, Route: PO, Drug form: TAB, ONCE, Dosing Weight 65.909, kg, Priority: STAT, Start date: 05/20/13 20:42:00, Stop date: 05/20/13 20:42:00Do not exceed 4 gm/day. (Same as: Tylenol) Inactive White 05/21/2013 [facility] Dextrose 50% Syringe 50 mL, Route: IVP, Dosing Weight 65.909, kg, PRN, PRN Blood Glucose Results, Start date: 05/20/13 20:39:00, Duration: 30 day, Stop date: 06/19/13 19:38:00 Inactive White 05/21/2013 [facility] glucagon 1 mg, Route: IM, PRN, Dosing Weight 65.909, kg, PRN Blood Glucose Results, Start date: 05/20/13 20:39:00, Duration: 30 day, Stop date: 06/19/13 19:38:00 Inactive White 05/21/2013 [facility] insulin aspart 10 unit, Route: SUB-Q, TID-Before Meals, Dosing Weight 65.909, kg, PRN Blood Glucose Results, Start date: 05/20/13 20:39:00, Duration: 30 day, Stop date: 06/19/13 20:38:00 Inactive White 05/21/2013 [facility] ceftriaxone + Sodium Chloride 0.9% IV 100 mL 1 gm, Route: IVPB, [id number], Dosing Weight 65.909, kg, Priority: STAT, Start date: 05/20/13 19:23:00, Duration: 30 day, Stop date: 06/18/13 19:23:00(Same As: Rocephin). Use with 100ml NS mini-bag PLUS and infuse over 30 min No Longer Active [place] 05/21/2013 [facility] gentamicin 80 mg, 100 mL, Route: IVPB, Drug form: INJ, [id number], Dosing Weight 65.909, kg, Priority: STAT, Start date: 05/20/13 19:21:00, Duration: 30 day, Stop date: 06/19/13 15:00:00(Same as Garamycin) No Longer Active [place] 05/21/2013 [facility] Dilaudid 0.5 mg, Route: IV, ONCE, Dosing Weight 65.909, kg, Start date: 05/20/13 17:30:00, Stop date: 05/20/13 17:30:00 Inactive [place] 05/20/2013 [facility] ondansetron 4 mg, Route: IVP, ONCE, Dosing Weight 65.909, kg, Priority: STAT, Start date: 05/20/13 16:03:00, Stop date: 05/20/13 16:03:00 Inactive [place] 05/20/2013 [facility] pantoprazole 40 mg, Route: IVP, ONCE, Dosing Weight 65.909, kg, For IV push reconstitute with 10 ml 0.9% sodium chloride and push over at least 3 minutes, Priority: STAT, Start date: 05/20/13 16:03:00, Stop date: 05/20/13 16:03:00 Inactive [place] 05/20/2013 [facility] GI cocktail 30 mL, Route: PO, Dosing Weight 65.909, kg, ONCE, STAT, Start date: 05/20/13 16:03:00, Stop date: 05/20/13 16:03:00 Inactive [place] 05/20/2013 [facility] morphine Sulfate 4 mg, Route: IVP, ONCE, Dosing Weight 65.909, kg, Priority: STAT, Start date: 05/20/13 16:03:00, Stop date: 05/20/13 16:03:00 Inactive [place] 05/20/2013 [facility] Saline Flush 0.9% 5 mL, Route: IVP, Drug Form: INJ, Dosing Weight 65.909, kg, PRN, PRN Line Flush, Start date: 05/20/13 16:03:00, Duration: 24 hr, Stop date: 05/21/13 16:02:00(Same as: BD Posiflush) Inactive [place] 05/20/2013 [facility] Pyridium 200 mg, Route: PO, ONCE, Dosing Weight 65.909, kg, Start date: 05/20/13 10:08:00, Stop date: 05/20/13 10:08:00 Inactive [place] 05/20/2013 [facility] tramadol 50 mg oral tablet 1 tab, Route: PO, Drug form: TAB, ONCE, Dosing Weight 65.909, kg, Start date: 05/20/13 10:07:00, Stop date: 05/20/13 10:07:00 Inactive [place] 05/20/2013 [facility] ondansetron 4 mg, 2 mL, Route: IVP, Drug form: INJ, ONCE, Dosing Weight 65.909, kg, PRN Nausea & Vomiting, Start date: 05/20/13 8:53:00(Same as: Zofran) Inactive [place] 05/20/2013 [facility] flumazenil 0.2 mg, 2 mL, Route: IVP, Drug form: INJ, PRN, Dosing Weight 65.909, kg, PRN Benzodiazepine Reversal, Initial dose, Start date: 05/20/13 8:53:00, Duration: 30 day, Stop date: 06/19/13 7:52:00(Same as: Romazicon) Inactive [place] 05/20/2013 [facility] naloxone 0.04 mg, 0.1 mL, Route: IVP, Drug form: INJ, Q2MIN, Dosing Weight 65.909, kg, PRN Narcotic Reversal, Start date: 05/20/13 8:53:00, Duration: 8 doses or times, Stop date: Limited # of times(Same as: Narcan) Inactive [facility] 05/20/2013 [facility] meperidine 12.5 mg, 0.25 mL, Route: IVP, Drug form: INJ, Q30Min, Dosing Weight 65.909, kg, PRN Other -See Comment, For shivering, Start date: 05/20/13 8:53:00, Duration: 2 doses or times, Stop date: Limited # of times(Same As: Demerol) Inactive [facility] 05/20/2013 [facility] hydromorphone 0.5 mg, 0.5 mL, Route: IVP, Drug form: INJ, Q5Min, Dosing Weight 65.909, kg, PRN Pain Score 7-10, Start date: 05/20/13 8:53:00, Duration: 5 doses or times, Stop date: Limited # of times Inactive [facility] 05/20/2013 [facility] fentanyl 25 microgram, Route: IVP, Q5Min, Dosing Weight 65.909, kg, PRN Pain Score 4-6, Start date: 05/20/13 8:53:00, Duration: 4 doses or times, Stop date: Limited # of times Inactive [facility] 05/20/2013 [facility] acetaminophen-hydrocodone 325 mg-5 mg oral tablet 2 tab, Route: PO, Drug Form: TAB, Dosing Weight 65.909, kg, Q4H, PRN Pain Score 4-6, Start date: 05/20/13 8:53:00, Duration: 30 day, Stop date: 06/19/13 8:52:00(Same as: [place] 325/5) Do not exceed 4gm/day of acetaminophen. Inactive [facility] 05/20/2013 [facility] tramadol 50 mg oral tablet 50 mg, 1 tab, PO, Q6H, PRN, 40 tab, Pain, Substitution Allowed, TAB Active [place] 05/20/2013 [facility] Pyridium 100 mg oral tablet 100 mg, 1 tab, PO, TID, 21 tab, Substitution Allowed, TAB Active [place] 05/20/2013 [facility] Bactrim DS oral tablet 1 tab, PO, BID, 14 tab, Substitution Allowed, Maintenance Active [place] 05/20/2013 [facility] morphine Sulfate 2 mg, 1 mL, Route: IVP, Drug form: INJ, Q3H, Dosing Weight 65.909, kg, PRN Pain Score 1-3, Start date: 05/20/13 8:38:00, Duration: 30 day, Stop date: 06/19/13 8:37:00(Same as:MORPhine Sulfate) Inactive [facility] 05/20/2013 [facility] gentamicin 120 mg, 100 mL, Route: IVPB, Drug form: INJ, ONCALL, Dosing Weight 65.909, kg, Start date: 05/20/13 7:00:00, Duration: 30 day, Stop date: 06/19/13 5:59:00(Same as Garamycin) Inactive [facility] 05/20/2013 [facility] Ancef + Sodium Chloride 0.9% IV 100 mL 1 gm, Route: IVPB, ONCALL, Dosing Weight 65.909, kg, Start date: 05/20/13 7:00:00, Duration: 30 day, Stop date: 06/19/13 5:59:00(Same As: Ancef, Kefzol) Inactive [facility] 05/20/2013 [facility] Lactated Ringers Injection IV 1,000 mL 1,000 mL, Rate: 25 ml/hr, Infuse over: 40 hr, Route: IV, Dosing Weight 65.909 kg, Total Volume: 1,000, Start date: 05/20/13 6:47:00, Duration: 30 day, Stop date: 06/19/13 6:46:00 Inactive [facility] 05/20/2013 [facility] tramadol 50 mg oral tablet 50 mg, 1 tab, PO, Q6H, PRN, 40 tab, Pain, Substitution Allowed, TAB Active 05/13/2013 [facility] simvastatin 20 mg oral tablet 20 mg, 1 tab, PO, Bedtime, 30 tab, Substitution Allowed Active [facility] 05/13/2013 [facility] metFORmin 1000 mg oral tablet 1,000 mg, 1 tab, PO, BID, 30 tab, Substitution Allowed No Longer Active [place] 05/13/2013 [facility] glipiZIDE 5 mg oral tablet 5 mg, 1 tab, PO, Daily, 30 tab, Substitution Allowed Active [place] 05/13/2013 [facility] amLODipine 2.5 mg oral tablet 2.5 mg, 1 tab, PO, Daily, 30 tab, Substitution Allowed, TAB Active [place] 05/13/2013 [facility] ProAir HFA 90 mcg/inh inhalation aerosol with adapter 2 puff, INHALATION, Q6H, PRN, 9 gm, for wheezing, Substitution Allowed, Maintenance, AERO Active [place] 05/13/2013 [facility] Spiriva 18 microgram, INHALATION, Daily, Substitution Allowed Active [place] 05/13/2013 [facility] Lyrica 50 mg oral capsule 50 mg, 1 cap, PO, TID, Substitution Allowed, CAP Active [place] 05/13/2013 [facility] naproxen 500 mg oral tablet 500 mg, 1 tab, PO, BID, 60 tab, Substitution Allowed, TAB Active 05/13/2013 [facility] Allergies, Adverse Reactions, Alerts Substance Category Reaction Severity Reaction type Status Date Reported Comments Source CeleBREX Assertion Drug allergy Active [facility] [place] Crestor Assertion Drug allergy Active [facility] [place] HYDROcodone Assertion Drug allergy Active [facility] [place] Levaquin Assertion Drug allergy Active [facility] [place] Immunizations Immunization Date Given Site Status Last Updated Comments Source influenza virus vaccine, inactivated 05/21/2013 completed [facility] influenza virus vaccine, inactivated 05/21/2013 Right deltoid [facility] pneum[facility] 23-valent [facility] 05/21/2013 Not Given [facility] pneumococcal 23-valent vaccine 05/21/2013 [facility] Results Order Name Results Value Reference Range Date Interpretation Comments Source ELECTROLYTES AGAP 8.9 10.0 - 20.0 04/18/2015 [facility] ELECTROLYTES eGFR 95 04/18/2015 Result Comment: [...] should be multiplied by the estimated BMI. [facility] ELECTROLYTES Chloride Lvl 107 95 - 109 04/18/2015 [facility] ELECTROLYTES CO2 26 24 - 32 04/18/2015 [facility] ELECTROLYTES Calcium Lvl 8.5 8.5 - 10.5 04/18/2015 [facility] ELECTROLYTES BUN 13 7 - 22 04/18/2015 [facility] ELECTROLYTES Creatinine Lvl 0.6 0.5 - 1.4 04/18/2015 [facility] ELECTROLYTES Sodium Lvl 138 135 - 145 04/18/2015 [facility] ELECTROLYTES Potassium Lvl 3.9 3.5 - 5.1 04/18/2015 [facility] ELECTROLYTES Glucose Lvl 147 70 - 99 04/18/2015 [facility] HEMATOLOGY Hgb 13.1 12.0 - 16.0 04/18/2015 [facility] CARDIAC ENZYMES Total CK 51 12 - 191 04/14/2015 [facility] CARDIAC ENZYMES Troponin-I <0.02 0.00 - 0.40 04/14/2015 [facility] CARDIAC ENZYMES Total CK 53 12 - 191 04/14/2015 [facility] CARDIAC ENZYMES Troponin-I <0.02 0.00 - 0.40 04/14/2015 [facility] CHEM PANEL A/G Ratio 1.0 0.7 - 1.6 04/14/2015 [facility] CHEM PANEL Globulin 3.4 2.0 - 4.0 04/14/2015 [facility] CHEM PANEL B/C Ratio 23 6 - 25 04/14/2015 [facility] CHEM PANEL AGAP 8.1 10.0 - 20.0 04/14/2015 [facility] CHEM PANEL ALT 26 0 - 65 04/14/2015 [facility] CHEM PANEL Alk Phos 90 39 - 136 04/14/2015 [facility] CHEM PANEL Total Protein 6.9 6.4 - 8.4 04/14/2015 [facility] CHEM PANEL Bili Total 0.1 0.2 - 1.3 04/14/2015 [facility] CHEM PANEL Potassium Lvl 4.1 3.5 - 5.1 04/14/2015 [facility] CHEM PANEL Chloride Lvl 104 95 - 109 04/14/2015 [facility] CHEM PANEL Sodium Lvl 137 135 - 145 04/14/2015 [facility] CHEM PANEL BUN 14 7 - 22 04/14/2015 [facility] CHEM PANEL CO2 29 24 - 32 04/14/2015 [facility] CHEM PANEL Albumin Lvl 3.5 3.5 - 5.0 04/14/2015 [facility] CHEM PANEL eGFR 95 04/14/2015 Result [...] should be multiplied by the estimated BMI. [facility] CHEM PANEL Creatinine Lvl 0.6 0.5 - 1.4 04/14/2015 [facility] CHEM PANEL Glucose Lvl 172 70 - 99 04/14/2015 [facility] CHEM PANEL AST 11 0 - 37 04/14/2015 [facility] CHEM [facility] Calcium Lvl 8.4 8.5 - 10.5 04/14/2015 [facility] HEMATOLOGY RDW 12.7 11.5 - 14.5 04/14/2015 [facility] HEMATOLOGY Platelet 154 133 - 450 04/14/2015 [facility] HEMATOLOGY MCHC 32.0 32.0 - 36.0 04/14/2015 [facility] HEMATOLOGY MPV 12.2 7.4 - 10.4 04/14/2015 [facility] MCH 29.2 27.0 - 31.0 04/14/2015 [facility] HEMATOLOGY MCV 91.3 80.0 - 98.0 04/14/2015 [facility] Hgb 12.6 12.0 - 16.0 04/14/2015 [facility] RBC 4.33 4.20 - 5.40 04/14/2015 [facility] HEMATOLOGY Hct 39.5 36.0 - 48.0 04/14/2015 [facility] HEMATOLOGY WBC 10.6 3.7 - 10.4 04/14/2015 [facility] HEMATOLOGY Eosinophils 2.7 0.0 - 4.0 04/14/2015 [facility] HEMATOLOGY Basophils 0.3 0.0 - 1.0 04/14/2015 [facility] HEMATOLOGY Segs 53.6 45.0 - 75.0 04/14/2015 [facility] HEMATOLOGY Monocytes 6.0 2.0 - 12.0 04/14/2015 [facility] HEMATOLOGY Lymphocytes 37.4 20.0 - 40.0 04/14/2015 [facility] HEMATOLOGY Lymphocytes # 4.0 1.0 - 5.5 04/14/2015 [facility] HEMATOLOGY Segs-Bands # 5.7 1.5 - 8.1 04/14/2015 [facility] HEMATOLOGY Eosinophils # 0.3 0.0 - 0.5 04/14/2015 [facility] HEMATOLOGY Monocytes # 0.6 0.0 - 0.8 04/14/2015 [facility] CARDIAC ENZYMES Troponin-I <0.02 0.00 - 0.40 04/13/2015 [facility] CARDIAC ENZYMES Total CK 59 12 - 191 04/13/2015 [facility] CARDIAC ENZYMES CK MB 0.9 0.5 - 3.6 04/13/2015 [facility] CARDIAC ENZYMES BNP 14 <=100 pg/mL 04/13/2015 [facility] CARDIAC ENZYMES CK MB Index 1.5 0.0 - 2.5 04/13/2015 [facility] ELECTROLYTES Chloride Lvl 103 95 - 109 04/13/2015 [facility] ELECTROLYTES Potassium Lvl 3.8 3.5 - 5.1 04/13/2015 [facility] ELECTROLYTES Sodium Lvl 136 135 - 145 04/13/2015 [facility] ELECTROLYTES AGAP 9.8 10.0 - 20.0 04/13/2015 [facility] ELECTROLYTES Calcium Lvl 8.6 8.5 - 10.5 04/13/2015 [facility] ELECTROLYTES Creatinine Lvl 0.6 0.5 - 1.4 04/13/2015 [facility] ELECTROLYTES CO2 27 24 - 32 04/13/2015 [facility] ELECTROLYTES BUN 14 7 - 22 04/13/2015 [facility] ELECTROLYTES Glucose Lvl 267 70 - 99 04/13/2015 [facility] ELECTROLYTES eGFR 95 04/13/2015 Result Comment: [...] should be multiplied by the estimated BMI. [facility] HEMATOLOGY PTT 28.5 22.9 - 35.8 04/13/2015 [facility] HEMATOLOGY PT 13.1 12.0 - 14.7 04/13/2015 [facility] INR 0.96 0.85 - 1.17 04/13/2015 [facility] Hgb 13.2 12.0 - 16.0 04/13/2015 [facility] MPV 11.3 7.4 - 10.4 04/13/2015 [facility] Platelet 151 133 - 450 04/13/2015 [facility] MCHC 31.9 32.0 - 36.0 04/13/2015 [facility] MCH 29.4 27.0 - 31.0 04/13/2015 [facility] MCV 92.0 80.0 - 98.0 04/13/2015 [facility] Hct 41.2 36.0 - 48.0 04/13/2015 [facility] RBC 4.48 4.20 - 5.40 04/13/2015 [facility] WBC 11.3 3.7 - 10.4 04/13/2015 [facility] RDW 12.7 11.5 - 14.5 04/13/2015 [facility] Eosinophils # 0.3 0.0 - 0.5 04/13/2015 [facility] HEMATOLOGY Lymphocytes # 2.8 1.0 - 5.5 04/13/2015 [facility] Monocytes # 0.8 0.0 - 0.8 04/13/2015 [facility] Basophils 0.4 0.0 - 1.0 04/13/2015 [facility] Monocytes 7.1 2.0 - 12.0 04/13/2015 [facility] HEMATOLOGY Eosinophils 2.7 0.0 - 4.0 04/13/2015 [facility] HEMATOLOGY Lymphocytes 24.8 20.0 - 40.0 04/13/2015 [facility] HEMATOLOGY Segs-Bands # 7.4 1.5 - 8.1 04/13/2015 [facility] HEMATOLOGY RBC Morph Normal (04/13/15 5:40 PM) 04/13/2015 [facility] HEMATOLOGY Plt Morph Normal (04/13/15 5:40 PM) 04/13/2015 [facility] HEMATOLOGY Segs 65.0 45.0 - 75.0 04/13/2015 [facility] BEDSIDE GLUCOSE TESTING Glucose POC 140 70 - 99 05/22/2013 [place] <sup>1</sup>Interpretive Data: Upper Reportable Limit: 200 mg/dL. [facility] BEDSIDE GLUCOSE TESTING Gluc POC Comment 2 Cleaned Meter 05/22/2013 [facility] BEDSIDE GLUCOSE TESTING Glucose POC 130 70 - 99 05/22/2013 [place] <sup>2</sup>Interpretive Data: Upper Reportable Limit: 200 mg/dL. [facility] BEDSIDE GLUCOSE TESTING Gluc POC Comment 1 Notified RN/MD 05/22/2013 [facility] CHEMISTRY AGAP 13.9 10.0 - 20.0 05/22/2013 Normal [facility] CHEMISTRY eGFR 102 05/22/2013 <sup>4</sup>Result Comment: [...] should be multiplied by the estimated BMI. [facility] CHEMISTRY BUN 11 7 - 22 05/22/2013 Normal [facility] CHEMISTRY Glucose Lvl 147 70 - 99 05/22/2013 [facility] <sup>6</sup>Interpretive Data: Adult reference range values reflect the clinical guidelines
of the [place] Diabetes Association. [facility] CHEMISTRY CO2 22 24 - 32 05/22/2013 LOW [facility] CHEMISTRY Creatinine Lvl 0.5 0.5 - 1.4 05/22/2013 Normal [facility] CHEMISTRY Calcium Lvl 8.1 8.5 - 10.5 05/22/2013 LOW [facility] CHEMISTRY Sodium Lvl 145 135 - 145 05/22/2013 Normal [facility] CHEMISTRY Potassium Lvl 3.9 3.5 - 5.1 05/22/2013 Normal [facility] CHEMISTRY Chloride Lvl 113 95 - 109 05/22/2013 [facility] HEMATOLOGY Hct 36.3 36.0 - 48.0 05/22/2013 Normal [facility] HEMATOLOGY MCV 93.6 81.0 - 99.0 05/22/2013 Normal [facility] HEMATOLOGY MCHC 31.7 32.0 - 36.0 05/22/2013 LOW [facility] HEMATOLOGY MCH 29.7 27.0 - 31.0 05/22/2013 Normal [facility] HEMATOLOGY RDW 14.4 11.5 - 14.5 05/22/2013 Normal [facility] HEMATOLOGY MPV 11.1 7.4 - 10.4 05/22/2013 [facility] HEMATOLOGY Platelet 156 133 - 450 05/22/2013 Normal [facility] HEMATOLOGY WBC X 10x3 10.1 3.7 - 10.4 05/22/2013 Normal [facility] HEMATOLOGY RBC X 10x6 3.87 4.20 - 5.40 05/22/2013 LOW [facility] HEMATOLOGY Hgb 11.5 12.0 - 16.0 [...] # 0.0 0.0 - 0.2 05/22/2013 Normal [facility] HEMATOLOGY Eosinophils # 0.2 0.0 - 0.5 05/22/2013 Normal [facility] BEDSIDE GLUCOSE TESTING Glucose POC 155 70 - 99 05/22/2013 [place] <sup>3</sup>Interpretive Data: Upper Reportable Limit: 200 mg/dL. [facility] HEMATOLOGY MPV 10.8 7.4 - 10.4 05/21/2013 [place] [facility] HEMATOLOGY Platelet 171 133 - 450 05/21/2013 Normal [facility] HEMATOLOGY RDW 13.6 11.5 - 14.5 05/21/2013 Normal [facility] HEMATOLOGY MCHC 33.3 32.0 - 36.0 05/21/2013 Normal [facility] HEMATOLOGY MCH 31.1 27.0 - 31.0 05/21/2013 [facility] HEMATOLOGY MCV 93.5 81.0 - 99.0 05/21/2013 Normal [facility] HEMATOLOGY Hct 38.3 36.0 - 48.0 05/21/2013 Normal [facility] HEMATOLOGY Hgb 12.8 12.0 - 16.0 05/21/2013 Normal [facility] HEMATOLOGY RBC X 10x6 4.10 4.20 - 5.40 05/21/2013 LOW [facility] HEMATOLOGY WBC X 10x3 12.3 3.7 - 10.4 05/21/2013 [place] [facility] HEMATOLOGY Basophils # 0.0 0.0 - 0.2 05/21/2013 Normal [facility] HEMATOLOGY Eosinophils # 0.2 0.0 - 0.5 05/21/2013 Normal [facility] HEMATOLOGY Lymphocytes # 3.5 1.0 - 5.5 05/21/2013 Normal [facility] HEMATOLOGY Monocytes # 0.8 0.0 - 0.8 05/21/2013 Normal [facility] HEMATOLOGY Segs-Bands # 7.8 1.5 - 8.1 05/21/2013 Normal [facility] HEMATOLOGY Basophils 0.2 0.0 - 1.0 05/21/2013 Normal [facility] HEMATOLOGY Eosinophils 1.3 0.0 - 4.0 05/21/2013 Normal [facility] HEMATOLOGY Monocytes 6.7 2.0 - 12.0 05/21/2013 Normal [facility] HEMATOLOGY Segs 63.4 45.0 - 75.0 05/21/2013 Normal [facility] HEMATOLOGY Lymphocytes 28.4 20.0 - 40.0 05/21/2013 Normal [facility] BLOOD BANK RESULTS Antibody Scrn Negative (05/20/2013 19:58:00) 05/21/2013 Normal [facility] BLOOD BANK RESULTS ABO/Rh B POS 05/21/2013 [facility] CHEMISTRY Lactic Acid Lvl 1.1 0.5 - 2.2 05/21/2013 Normal [facility] CHEMISTRY CK-MB INDEX 0.8 0.0 - 2.5 05/20/2013 Normal [facility] CHEMISTRY Troponin-I <0.02 0.00 - 0.40 05/20/2013 Normal [facility] CHEMISTRY Magnesium Lvl 1.9 1.8 - 2.4 05/20/2013 Normal [facility] CHEMISTRY Phosphorus 2.2 2.5 - 4.5 05/20/2013 LOW [facility] CHEMISTRY Total CK 80 12 - 191 05/20/2013 Normal [facility] CHEMISTRY CK MB 0.6 0.5 - 3.6 05/20/2013 Normal [facility] CHEMISTRY Chloride Lvl 105 95 - 109 05/20/2013 Normal [facility] CHEMISTRY Sodium Lvl 135 135 - 145 05/20/2013 Normal [facility] CHEMISTRY Potassium Lvl 4.4 3.5 - 5.1 05/20/2013 Normal [facility] CHEMISTRY eGFR 102 05/20/2013 <sup>5</sup>Result Comment: [...] should be multiplied by the estimated BMI. [facility] CHEMISTRY Bili Total 0.5 0.2 - 1.3 05/20/2013 Normal [facility] CHEMISTRY Globulin 3.7 2.0 - 4.0 05/20/2013 Normal [facility] CHEMISTRY B/C Ratio 20 6 - [...] values reflect the clinical guidelines
of the [place] Diabetes Association. [facility] CHEMISTRY BUN 10 7 - 22 05/20/2013 Normal [facility] CHEMISTRY Calcium Lvl 8.4 8.5 - 10.5 05/20/2013 LOW [facility] CHEMISTRY A/G Ratio 1.1 0.7 - 1.6 05/20/2013 Normal [facility] CHEMISTRY CO2 23 24 - 32 05/20/2013 LOW [facility] CHEMISTRY Creatinine Lvl 0.5 0.5 - 1.4 05/20/2013 Normal [facility] HEMATOLOGY Plt Morph Normal (05/20/2013 16:59:20) 05/20/2013 Normal [facility] HEMATOLOGY Monocytes 1.9 2.0 - 12.0 05/20/2013 LOW [facility] HEMATOLOGY Lymphocytes 8.3 20.0 - 40.0 05/20/2013 LOW [facility] HEMATOLOGY RBC Morph Normal (05/20/2013 16:59:20) [...] # 0.0 0.0 - 0.2 05/20/2013 Normal [facility] HEMATOLOGY MCHC 32.9 32.0 - 36.0 05/20/2013 Normal [facility] HEMATOLOGY MCH 30.5 27.0 - 31.0 05/20/2013 Normal [facility] HEMATOLOGY Platelet 196 133 - 450 05/20/2013 Normal [facility] HEMATOLOGY RDW 14.0 11.5 - 14.5 05/20/2013 Normal [facility] HEMATOLOGY Hgb 14.2 12.0 - 16.0 05/20/2013 Normal [facility] HEMATOLOGY MCV 92.6 81.0 - 99.0 05/20/2013 Normal [facility] HEMATOLOGY Hct 43.1 36.0 - 48.0 05/20/2013 Normal [facility] HEMATOLOGY MPV 11.1 7.4 - 10.4 05/20/2013 [place] [facility] HEMATOLOGY RBC X 10x6 4.65 4.20 - 5.40 05/20/2013 Normal [facility] HEMATOLOGY WBC X 10x3 20.6 3.7 [...] UA Ketones Trace mg/dL Negative 05/20/2013 ABN [facility] BEDSIDE GLUCOSE TESTING Glucose POC 181 [...] Est Negative (05/13/2013 12:00:22) Negative 05/13/2013 Normal [facility] CHEMISTRY AGAP 12.3 10.0 - 20.0 05/13/2013 Normal [facility] CHEMISTRY Sodium Lvl 139 135 - 145 05/13/2013 Normal [facility] CHEMISTRY Potassium Lvl 4.3 3.5 - 5.1 05/13/2013 Normal [facility] CHEMISTRY Chloride Lvl 106 95 - 109 05/13/2013 Normal [facility] CHEMISTRY eGFR 102 05/13/2013 <sup>2</sup>Result Comment: [...] should be multiplied by the estimated BMI. [facility] CHEMISTRY CO2 25 24 - 32 05/13/2013 Normal [facility] CHEMISTRY Creatinine Lvl 0.5 0.5 - 1.4 05/13/2013 Normal [facility] CHEMISTRY BUN 13 7 - 22 05/13/2013 Normal [facility] CHEMISTRY Calcium Lvl 9.2 8.5 - 10.5 05/13/2013 Normal [facility] CHEMISTRY Glucose Lvl 150 70 - 99 05/13/2013 [place] <sup>3</sup>Interpretive Data: Adult reference range values reflect the clinical guidelines
of the [place] Diabetes Association. [facility] HEMATOLOGY Lymphocytes # 3.8 1.0 - 5.5 05/13/2013 Normal [facility] HEMATOLOGY Basophils 0.3 0.0 - 1.0 05/13/2013 Normal [facility] HEMATOLOGY Segs-Bands # 5.6 1.5 - 8.1 05/13/2013 Normal [facility] HEMATOLOGY Monocytes 6.6 2.0 - 12.0 05/13/2013 Normal [facility] HEMATOLOGY Eosinophils 2.4 0.0 - 4.0 05/13/2013 Normal [facility] HEMATOLOGY Basophils # 0.0 0.0 - 0.2 05/13/2013 Normal [facility] HEMATOLOGY Eosinophils # 0.2 0.0 - 0.5 05/13/2013 Normal [facility] HEMATOLOGY Monocytes # 0.7 0.0 - 0.8 05/13/2013 Normal [facility] Lymphocytes 36.6 20.0 - 40.0 05/13/2013 Normal [facility] Segs 54.1 45.0 - 75.0 05/13/2013 Normal [facility] INR 0.95 0.85 - 1.17 05/13/2013 Normal <sup>4</sup>Interpretive Data: RECOMMENDED RANGES FOR PROTIME INR:
2.0-3.0 for most medical and surgical thromboembolic states.
2.5-3.5 for artificial heart valves and recurrent embolism.

INR SHOULD BE USED ONLY FOR PATIENTS ON STABLE ANTICOAGULANT THERAPY. [facility] PROTIME 12.6 12.0 - 14.7 05/13/2013 Normal [facility] aPTT 30.3 22.9 - 35.8 05/13/2013 Normal <sup>5</sup>Interpretive Data: Heparin Therapeutic Range: 57 - 92 Seconds [facility] Platelet 203 133 - 450 05/13/2013 Normal [facility] MPV 10.9 7.4 - 10.4 05/13/2013 HI [facility] HEMATOLOGY RDW 13.9 11.5 - 14.5 05/13/2013 Normal [facility] Hct 44.2 36.0 - 48.0 05/13/2013 Normal [facility] MCH 30.3 27.0 - 31.0 05/13/2013 Normal [facility] MCV 94.3 81.0 - 99.0 05/13/2013 Normal [facility] MCHC 32.1 32.0 - 36.0 05/13/2013 Normal [facility] Hgb 14.2 12.0 - 16.0 05/13/2013 Normal [facility] WBC X 10x3 10.3 3.7 - 10.4 05/13/2013 Normal [facility] HEMATOLOGY RBC X 10x6 4.69 4.20 - 5.40 05/13/2013 Normal [facility] Pathology Reports No Data Provided for [...] IMPRESSION: No evidence of DVT. 05/03/2015 [facility] Cardiac SPECT multi studies NM PROCEDURE: Rest/Stress [...] with preserved EF and wall motion. 04/17/2015 [facility] contrast MRA MRA KOTZEBUE OF MOMIN WITHOUT CONTRAST INDICATION: Acute cognitive [...] and posterior cerebral arteries. SL: 16 04/16/2015 [facility] contrast MRI MRI BRAIN WITHOUT CONTRAST [...] No acute intracranial abnormality. SL: 16 04/15/2015 [facility] Carotid artery Doppler bilat US Carotid [...] CB, Scarlett GL, et. al. SL: 04/14/2015 [facility] Pelvis AP DX Supine AP pelvis, Apr 13, 2015 11:53:00 PM CLINICAL HISTORY: Pain, Trauma ; s/p syncope TECHNIQUE: Routine AP view of the pelvis was obtained. COMPARISON: None FINDINGS: Diffusely decreased bone mineralization is present. No acute fracture, subluxation, or dislocation is present in the pelvis. IMPRESSION: No acute abnormality of pelvis. SL: 04/13/2015 [facility] Brain wo contrast CT Examination: CT [...] No acute intracranial abnormality. SL: 16 04/13/2015 [facility] Foot series DX Examination: Left foot, 3 views History: Pain in limb Comparison: None. Findings: Multiple views of the left foot show no acute bony fracture or joint dislocation. Soft tissues are unremarkable. IMPRESSION: No acute bony abnormality of the left foot. SL: 16 04/13/2015 [facility] Chest 1view DX Examination: Chest x-ray, single view History: Chest pain Comparison: 05/20/2013 Findings: The lungs are clear and without focal consolidation. The cardiomediastinal silhouette is within normal limits. No pleural effusion or pneumothorax is seen. The osseous structures are without focal abnormality. IMPRESSION: No acute cardiopulmonary disease. SL: 04/13/2015 [facility] Abdomen/Pelvis wo contrast CT CT SCAN [...] are present incompletely evaluated. SL: 12 05/20/2013 [facility] Chest 1view HISTORY: Nausea vomiting and chest pain. One view chest. Lungs are clear. Heart size normal. Pulmonary vasculature normal. There is no pleural effusion or pneumothorax. IMPRESSION: No acute findings SL:13 05/20/2013 [facility] Kidney pyelogram retrograde Bilateral retrograde pyelograms: Multiple spot images from cystoscopy are submitted. Contrast has been injected at both ureteral orifices. There is normal caliber of the collecting systems and ureters without filling defect, obstruction or mass displacement. SL:13 05/20/2013 [facility] Chest 2 views PA and lateral: The aorta is tortuous. The cardiomediastinal silhouette, pulmonary vasculature and pablito are otherwise within normal limits. The lungs and pleural spaces are clear. There are no significant osseous abnormalities. IMPRESSION: No acute radiographic abnormality in the chest. SL:13 05/13/2013 [facility] Consultation Notes No Data Provided for This Section Discharge Summaries No Data Provided for This Section History and Physicals No Data Provided for This Section Vital Signs Vital Sign Value Date Comments Source Systolic (mm Hg) 152 04/18/2015 [facility] Diastolic (mm Hg) 82 04/18/2015 [facility] Respitory Rate 20 04/18/2015 [facility] Heart Rate 82 04/18/2015 [facility] Systolic (mm Hg) 174 04/18/2015 [facility] Diastolic (mm Hg) 75 04/18/2015 [facility] Respitory Rate 18 04/18/2015 [facility] Heart Rate 70 04/18/2015 [facility] Systolic (mm Hg) 157 04/18/2015 [facility] Diastolic (mm Hg) 80 04/18/2015 [facility] Respitory Rate 20 04/18/2015 [facility] Heart Rate 58 04/18/2015 [facility] Temperature Oral (F) 98.0 F 04/18/2015 [facility] Temperature Oral (F) 98.1 F 04/18/2015 [facility] Temperature Oral (F) 98.2 F 04/18/2015 [facility] Height 154.94 cm 04/14/2015 [facility] Weight 63.182 04/14/2015 [facility] BMI Calculated 26.32 04/14/2015 [facility] Diastolic (mm Hg) 80 05/22/2013 [facility] Systolic (mm Hg) 116 05/22/2013 [facility] Respitory Rate 19 05/22/2013 [facility] Systolic (mm Hg) 164 05/22/2013 [facility] Respitory Rate 16 05/22/2013 [facility] Heart Rate 67 05/22/2013 [facility] Temperature Oral (F) 98.1 F 05/22/2013 [facility] Diastolic (mm Hg) 74 05/22/2013 [facility] Respitory Rate 18 05/22/2013 [facility] Heart Rate 73 05/22/2013 [facility] Temperature Oral (F) 98.2 F 05/22/2013 [facility] Systolic (mm Hg) 160 05/22/2013 [facility] Diastolic (mm Hg) 77 05/22/2013 [facility] Temperature Oral (F) 97.8 F 05/22/2013 [facility] Heart Rate 69 05/22/2013 [facility] Height 157.48 cm 05/21/2013 [facility] Weight 67.273 05/21/2013 [facility] Height 154.94 cm 05/20/2013 [facility] Weight 65.909 05/20/2013 [facility] Diastolic (mm Hg) 69 05/20/2013 [facility] Systolic (mm Hg) 145 05/20/2013 [facility] Diastolic (mm Hg) 80 05/20/2013 [facility] Systolic (mm Hg) 160 05/20/2013 [facility] Diastolic (mm Hg) 44 05/20/2013 [facility] Systolic (mm Hg) 159 05/20/2013 [facility] Respitory Rate 17 05/20/2013 [facility] Respitory Rate 22 05/20/2013 [facility] Respitory Rate 29 05/20/2013 [facility] Heart Rate 81 05/20/2013 [facility] Height 167.64 cm 05/13/2013 [facility] Weight 65.909 05/13/2013 [facility] Heart Rate 66 05/13/2013 [facility] Temperature Oral (F) 98.0 F 05/13/2013 [facility] Heart Rate 80 05/13/2013 [facility] Temperature Oral (F) 97.9 F 05/13/2013 [facility] Weight 65.455 05/13/2013 [facility] Height 153.67 cm 05/13/2013 [facility] Encounters Location Location Details Encounter Type Encounter Number Reason For Visit Attending Provider ADM Date DC Date Status Source [facility] DS [id number] IRA ROB 05/20/2013 05/20/2013 Discharged [facility] OU [id number] RIGHT SIDE PYELONEPHRITIS TATUM ALEX 05/20/2013 05/22/2013 Active [facility] OBS Observation Patient [id number] Nestor Jose 04/13/2015 04/18/2015 [facility] [place] [facility] [id number] Rajiv Nascimbene 05/03/2015 05/04/2015 DARYL Marie Procedures Procedure Code Date Perfomer Comments Source Cystourethroscopy, with fulguration (including cryosurgery or laser surgery) and/or resection of; MEDIUM bladder tumor(s) (2.0 to 5.0 cm) [id number] 05/20/2013 [facility] Other Transurethral Excision or Destruction of Lesion or Tissue of Bladder 57.49 05/20/2013 [facility] Bladder operation [id number] 05/20/2013 [facility] Emergency department visit for the evaluation and management of a patient, which requires these 3 maldonado components within the constraints imposed by the urgency of the patient's clinical condition and/or mental status: A comprehensive history; A comprehensi [id number] 05/20/2013 [facility] Bladder operation [id number] 05/20/2013 [facility] [place] Cholecystectomy [id number] [facility] Hysterectomy [id number] [facility] Cholecystectomy [id number] [facility] [place] [id number] [place] Assessment and Plan Assessment and Plan Date Source Extracted from:Title: History and Physical Author: Viktor Lim MD Date: 04/13/15 [facility]P [facility] Completed: Mar, 23:47 by Viktor [...] Time Meds: None Continuous Infusions: None 04/18/2015 [facility] Plan of Care No Data Provided [...] No; Reg Smoking Cessation Counseling No 04/14/2015 [facility] Family History No Data Provided for This Section Advance Directives No Data Provided for This Section Functional Status No Data Provided for This Section
[2019-03-09] MEDS ORDERED: LIDOCAINE 5% PATCH TP ONE (14:00)
[2019-03-09] MEDS ORDERED: HYDROCODONE/APAP 7.5MG-325MG 1 EA TAB PO PRN (14:30)
[2019-03-09 14:46] LABS: BASOPHILS # (AUTO) 0.1 (0.0-0.1); BASOPHILS % 0.5 % (0.0-1.0); EOSINOPHILS # (AUTO) 0.9 (0.0-0.4); EOSINOPHILS % 6.3 % (0.0-6.0); HEMATOCRIT 43.7 % (34.2-44.1); HEMOGLOBIN 12.9 g/dL (12.0-16.0); LYMPHOCYTES # (AUTO) 2.6 (1.0-3.2); LYMPHOCYTES % 19.4 % (18.0-39.1); MEAN CORPUSCULAR HEMOGLOBIN 22.6 pg (28-32); MEAN CORPUSCULAR HGB CONC 29.5 g/dL (31-35); MEAN CORPUSCULAR VOLUME 76.5 fL (81-99); MONOCYTES % 7.3 % (4.4-11.3); NEUTROPHILS # (AUTO) 8.9 (2.1-6.9); NEUTROPHILS % 66.1 % (38.7-80.0); PLATELET COUNT 290 x10e3/uL (140-360); RED BLOOD COUNT 5.71 x10e6/uL (3.6-5.1)
[2019-03-09 14:58] LABS: INR 0.89; PROTHROMBIN TIME 12.5 seconds (11.9-14.5)
[2019-03-09 14:59] LABS: PARTIAL THROMBOPLASTIN TIME 30.9 seconds (23.8-35.5)
[2019-03-09 15:07] LABS: ALANINE AMINOTRANSFERASE 10 IU/L (0-55); ALBUMIN 4.1 g/dL (3.5-5.0); ALBUMIN/GLOBULIN RATIO 1.3 (0.8-2.0); ALKALINE PHOSPHATASE 88 IU/L (40-150); BLOOD UREA NITROGEN 16 mg/dL (7-26); BUN/CREATININE RATIO 24 (6-25); CALCIUM 9.4 mg/dL (8.4-10.2); CARBON DIOXIDE 25 mmol/L (22-29); CHLORIDE 102 mmol/L (98-107); CREATINE KINASE 39 IU/L (29-168); CREATININE, SERUM 0.66 mg/dL (0.57-1.11); EST GLOMERULAR FILTRATION RATE > 60 ML/MIN (60-); GLUCOSE 108 mg/dL (74-118); SODIUM 136 mmol/L (136-145)
--- NOTE | 2019-03-09 15:49 | Diagnostic Imaging Report ---
EXAMINATION: CHEST 2 VIEWS INDICATION: Chest pain COMPARISON: Rib radiographs 02/19/2019 FINDINGS: LINES/TUBES:None LUNGS:The lungs are well-inflated. Mild subsegmental atelectasis at the left lung base. PLEURA:No pleural effusion or pneumothorax. MEDIASTINUM:The cardiomediastinal silhouette appears normal in size and shape. BONES/SOFT TISSUES:No acute osseous injury. ABDOMEN:No free air under the diaphragm. IMPRESSION: No focal pneumonia or pulmonary edema. Subsegmental atelectasis at the left lung base. No displaced rib fractures. Signed by: Arelis Edwards MD on 03/09/2019 3:46 PM
== END 2019-03-09 18:02 | disposition home or self-care (01) ==
LOC: ER 12:56
DX: R07.89 Other chest pain (principal); I10 Essential (primary) hypertension; E11.9 Type 2 diabetes mellitus without complications; J44.9 Chronic obstructive pulmonary disease, unspecified; F41.9 Anxiety disorder, unspecified; K21.9 Gastro-esophageal reflux disease without esophagitis; F32.9 Major depressive disorder, single episode, unspecified; F17.210 Nicotine dependence, cigarettes, uncomplicated
CPT/HCPCS: 36415; 71046; 80053; 82550; 82553; 83880; 84484; 85025; 85610; 85730; 93005; 99284

== ENCOUNTER → 2020-02-21 | Outpatient (CLI) | payer MEDICARE, BC ==
[~2020-02-21] MED LIST changes: +IOPAMIDOL 370 MG/ML 200 ML INFUS..BTL INJ ONE; +SODIUM CHLORIDE 0.9% 50ML 50 ML ONE
[2020-02-21 12:40] LABS: BLOOD UREA NITROGEN 7 mg/dL (7-26); BUN/CREATININE RATIO 11 (6-25); CREATININE, SERUM 0.63 mg/dL (0.57-1.11); EST GLOMERULAR FILTRATION RATE > 60 ML/MIN (60-)
--- NOTE | 2020-02-21 13:46 | Diagnostic Imaging Report ---
EXAM: CT Abdomen and Pelvis WITH intravenous contrast INDICATION: Right upper quadrant abdominal pain COMPARISON: Abdomen and pelvis CT of 04/27/2018 TECHNIQUE: Abdomen and pelvis were scanned utilizing a multidetector helical scanner from the lung base to the pubic symphysis after administration of IV contrast. Coronal and sagittal reformations were obtained. Routine protocol was performed. Scan was performed during portal venous phase. IV CONTRAST: 100mL of Isovue 370 ORAL CONTRAST: Water RADIATION DOSE: Total DLP: 399 mGy*cm Dose modulation, iterative reconstruction, and/or weight based adjustment of the mA/kV was utilized to reduce the radiation dose to as low as reasonably achievable. FINDINGS: LOWER THORAX: Normal. HEPATOBILIARY: Right hepatic cysts, stable from 04/27/2018. No new focal liver lesion. No biliary ductal dilation. Status post cholecystectomy. SPLEEN: No splenomegaly. PANCREAS: No focal masses or ductal dilatation. ADRENALS: No adrenal nodules. KIDNEYS/URETERS: No hydronephrosis, renal calculi, or solid mass lesion. Unchanged bilateral simple renal cysts. PELVIC ORGANS/BLADDER: Unremarkable. PERITONEUM / RETROPERITONEUM: No free air or fluid. LYMPH NODES: No lymphadenopathy. VESSELS: Moderate atherosclerotic calcifications of the nonaneurysmal abdominal aorta and major branches. GI TRACT: Severe sigmoid and descending colon diverticulosis. No CT evidence of diverticulitis. No abnormal bowel thickening. No bowel obstruction. BONES AND SOFT TISSUES: No acute osseous injury. No suspicious lytic or blastic lesions. IMPRESSION: Severe sigmoid and descending colon diverticulosis. No CT evidence of diverticulitis. Unchanged hepatic and renal cysts. Signed by: Arelis Edwards MD on 02/21/2020 1:42 PM
== END ==
LOC: CT 11:50
PROVIDERS: ATTEND Family Medicine
DX: R10.11 Right upper quadrant pain (principal)
CPT/HCPCS: 36415; 74177; 82565; 84520; Q9967

== ENCOUNTER → 2020-03-12 | Day surgery (SDC) | payer MEDICARE, BC, OTHER ==
[2020-03-07 15:34] LABS: BASOPHILS # (AUTO) 0.1 (0.0-0.1); BASOPHILS % 0.5 % (0.0-1.0); EOSINOPHILS # (AUTO) 0.4 (0.0-0.4); EOSINOPHILS % 3.1 % (0.0-6.0); HEMOGLOBIN 8.1 g/dL (12.0-16.0); LYMPHOCYTES # (AUTO) 1.7 (1.0-3.2); LYMPHOCYTES % 14.4 % (18.0-39.1); MEAN CORPUSCULAR HEMOGLOBIN 18.5 pg (28-32); MEAN CORPUSCULAR HGB CONC 26.1 g/dL (31-35); MEAN CORPUSCULAR VOLUME 70.9 fL (81-99); MONOCYTES # (AUTO) 0.7 (0.2-0.8); MONOCYTES % 5.8 % (4.4-11.3); NEUTROPHILS # (AUTO) 8.7 (2.1-6.9); NEUTROPHILS % 75.9 % (38.7-80.0); PLATELET COUNT 331 x10e3/uL (140-360); RED BLOOD COUNT 4.37 x10e6/uL (3.6-5.1); RED CELL DISTRIBUTION WIDTH 18.1 % (11.7-14.4)
[~2020-03-12] MED LIST changes: +ALBUTEROL0.63 MG/3 INH; +DONNATAL/LIDOCAINE/MAALOX 30 ML SUSP PO ONE; +FENTANYL CITRATE/PF 100MCG/2 ML INJ ONE; +GLUCAGON FOR INJ 1 MG VIAL ONE; +HYOSCYAMINE 0.125 MG TAB ONE; -IOPAMIDOL 370 MG/ML 200 ML INFUS..BTL INJ ONE; +LIDOCAINE HCL 2% LOCAL INJ 5 ML SDV VIAL INJ ONE; +MIDAZOLAM HCL 2 MG/2 ML VIAL ONE; +PROPOFOL IV EMULSION 10 MG/ML 20 ML VIAL ONE; -SODIUM CHLORIDE 0.9% 50ML 50 ML ONE; +TEMAZEPAM30 MG PO; +TIZANIDINE HCL4 MG PO; +TRIAMCINOLONE A15 G1 TOP; +TYLENOL ARTHRITIS PO; +ZOFRAN4 MG PO; +[UNRECOGNIZED DRUG - OTHER] OP
[2020-03-12 13:59] VITALS: BP 130/58
[2020-03-12 14:22] LABS: % IRON SATURATION 2 % (15-50); IRON 12 ug/dL (50-170); TOTAL IRON BINDING CAPACITY 560 ug/dL (261-478); TRANSFERRIN 400 mg/dL (180-382)
--- NOTE | 2020-03-12 14:39 | Operative Report ---
DATE OF PROCEDURE: 03/12/2020 SURGEON: Yves Chatman MD PROCEDURES PERFORMED: 1. EGD with biopsies and esophageal dilatation. 2. Colonoscopy with EGD scope and polypectomy. INDICATIONS FOR EGD: Dysphagia, right upper quadrant pain, and nausea. INDICATIONS FOR COLONOSCOPY: Surveillance colonoscopy, right-sided abdominal pain, personal history of colon polyps. MEDICATIONS: The patient was done under MAC, please see anesthesiologist's note. PROCEDURE IN DETAIL: With the patient in left lateral decubitus position, flexible fiberoptic Olympus gastroscope was introduced into the esophagus under direct visualization without any difficulty. There was some patchy erythema noted in distal esophagus. The esophagus was dilated to size 52-[place]. The scope was then advanced with ease into the stomach. Mucosa overlying the antrum and the body revealed some patchy erythema and [id number] edema, and biopsies were obtained, sent to stain for H pylori. Pylorus was normal contour and shape, was intubated with ease. The scope was advanced all the way to the second portion of the duodenum. Biopsies were obtained from the proximal second portion and the duodenal bulb to rule out sprue. The scope was then withdrawn back into the stomach and retroflexed mucosa overlying the fundus and cardia appeared to be within normal limits. The scope was then straightened out, it was subsequently withdrawn. The patient tolerated the procedure well. IMPRESSION: 1. Distal esophagitis, mild. 2. Esophagus dilated to size 52[place]. 3. Gastritis, biopsied. Biopsies sent to stain for Helicobacter pylori. 4. Rule out sprue. PLAN: Follow up histology. Increase Protonix to 40 mg one p.o. before meals b.i.d. The patient was then turned around. After adequate lubrication of the anal canal, flexible fiberoptic Olympus colonoscope was inserted into the rectum. It could not be advanced beyond the distal sigmoid colon due to a sharply angulated and fixed distal sigmoid. It was then withdrawn and the EGD scope was introduced into the rectum, and advanced with some difficulty all the way to 100 cm from the anal verge. Could not be advanced any further secondary to excessive looping of the scope in the left colon. The scope was then withdrawn slowly and visualized of the distal transverse colon appeared to be within normal limits other than for some diverticular disease. The prep overall was suboptimal with retained stools in the colon. The scope was then withdrawn slowly and whatever was visualized of the mucosa overlying the descending colon other than for diverticulosis grossly appeared to be within normal limits. One polyp was hot biopsied and site was hemoclipped and one polyp was hot snared from the sigmoid colon. The rectum grossly appeared to be within normal limits. The scope was then retroflexed into the distal rectum and the area around the dentate line was suboptimally visualized due to retained fecal material, but whatever was visualized appeared to be within normal limits. The scope was then straightened out, it was subsequently withdrawn. The patient tolerated the procedure well. IMPRESSION: 1. Suboptimal prep. 2. Sharply angulated distal sigmoid colon, negotiated only with EGD scope. EGD scope advanced to approximately 100 cm from the anal verge corresponding to possibly to the transverse colon. It could not be advanced any further secondary to extensive looping of the scope in the left colon. 3. Diverticulosis. 4. Sigmoid colon polyps x2, 1 hot snared and 1 hot biopsied, and polypectomy site was hemoclipped. PLAN: Followup histology. The patient will need a laparoscopy with lysis of adhesions followed by a repeat colonoscopy. MD MINI Escoto/MODL /[id number] cc: Julio Toussaint DO
== END | disposition home or self-care (01) ==
LOC: OR 10:25
PROVIDERS: ATTEND Internal Medicine Gastroenterology
DX: K22.2 Esophageal obstruction (principal); K63.5 Polyp of colon; K29.80 Duodenitis without bleeding; K29.70 Gastritis, unspecified, without bleeding; K20.9 Esophagitis, unspecified; K57.30 Diverticulosis of large intestine without perforation or abscess without bleeding; K31.9 Disease of stomach and duodenum, unspecified; Z86.010 Personal history of colon polyps; Z88.1 Allergy status to other antibiotic agents; Z88.8 Allergy status to other drugs, medicaments and biological substances; I10 Essential (primary) hypertension; F17.210 Nicotine dependence, cigarettes, uncomplicated; Z01.810 Encounter for preprocedural cardiovascular examination; Z01.812 Encounter for preprocedural laboratory examination; Z11.59 Encounter for screening for other viral diseases; Z79.82 Long term (current) use of aspirin; Z79.84 Long term (current) use of oral hypoglycemic drugs
CPT/HCPCS: 36415 ×2; 43239; 43450; 45385; 82948; 83540; 84466; 85025; 85045; 88305; 88312; 93005; J1610; J2001; J2704; U0002; 45378; 45384; J2250; J3010

== ENCOUNTER → 2020-05-14 | Outpatient (CLI) | payer MEDICARE, BC, OTHER ==
[~2020-05-14] MED LIST changes: -DONNATAL/LIDOCAINE/MAALOX 30 ML SUSP PO ONE; -FENTANYL CITRATE/PF 100MCG/2 ML INJ ONE; -GLUCAGON FOR INJ 1 MG VIAL ONE; -HYOSCYAMINE 0.125 MG TAB ONE; -LIDOCAINE HCL 2% LOCAL INJ 5 ML SDV VIAL INJ ONE; -MIDAZOLAM HCL 2 MG/2 ML VIAL ONE; -PROPOFOL IV EMULSION 10 MG/ML 20 ML VIAL ONE
== END ==
LOC: DX 07:42
PROVIDERS: ATTEND Surgery
DX: Z86.010 Personal history of colon polyps (principal)
CPT/HCPCS: 74018

== ENCOUNTER 2020-12-20 22:06 | Inpatient (IN) | payer MEDICARE, BC ==
[~2020-12-20] VITALS: Ht 154.9 cm; Wt 64.0 kg
[2020-12-21] VITALS (7 sets, daily range): BP systolic 112–143; BP diastolic 48–82
[2020-12-21 00:32] LABS: BASOPHILS # (AUTO) 0.1 (0.0-0.1); BASOPHILS % 0.6 % (0.0-1.0); EOSINOPHILS # (AUTO) 0.4 (0.0-0.4); EOSINOPHILS % 2.8 % (0.0-6.0); LYMPHOCYTES # (AUTO) 1.7 (1.0-3.2); LYMPHOCYTES % 13.1 % (18.0-39.1); MEAN CORPUSCULAR HEMOGLOBIN 14.2 pg (28-32); MEAN CORPUSCULAR HGB CONC 22.7 g/dL (31-35); MEAN CORPUSCULAR VOLUME 62.2 fL (81-99); MONOCYTES # (AUTO) 0.9 (0.2-0.8); MONOCYTES % 6.9 % (4.4-11.3); NEUTROPHILS # (AUTO) 9.8 (2.1-6.9); NEUTROPHILS % 76.1 % (38.7-80.0); PLATELET COUNT 379 x10e3/uL (140-360); RED BLOOD COUNT 3.39 x10e6/uL (3.6-5.1); RED CELL DISTRIBUTION WIDTH 22.8 % (11.7-14.4)
[2020-12-21 00:35] LABS: HEMOGLOBIN 4.8 g/dL (12.0-16.0)
[2020-12-21 00:37] LABS: HEMATOCRIT 21.1 % (34.2-44.1)
[2020-12-21 00:46] LABS: ALANINE AMINOTRANSFERASE 7 IU/L (0-55); ALBUMIN 3.6 g/dL (3.5-5.0); ALBUMIN/GLOBULIN RATIO 1.1 (0.8-2.0); ALKALINE PHOSPHATASE 83 IU/L (40-150); ANION GAP 17.5 mmol/L (8-16); BLOOD UREA NITROGEN 11 mg/dL (7-26); BUN/CREATININE RATIO 18 (6-25); CALCIUM 8.4 mg/dL (8.4-10.2); CARBON DIOXIDE 20 mmol/L (22-29); CHLORIDE 109 mmol/L (98-107); CREATINE KINASE 38 IU/L (29-168); CREATININE, SERUM 0.61 mg/dL (0.57-1.11); EST GLOMERULAR FILTRATION RATE > 60 ML/MIN (60-); GLUCOSE 139 mg/dL (74-118); POTASSIUM 4.5 mmol/L (3.5-5.1); SODIUM 142 mmol/L (136-145)
[2020-12-21] MEDS ORDERED: SODIUM CHLORIDE 0.9% 250ML 250 ML IV ONE (03:15)
[2020-12-21] MEDS ORDERED: SODIUM CHLORIDE 0.9% 250ML 250 ML ONE (10:00)
[2020-12-21] MEDS ORDERED: FARXIGA10 MG PO (12:11)
[2020-12-21] MEDS ORDERED: PROAIR HFA INH8.5 GM INH (12:11)
[2020-12-21] MEDS ORDERED: TYLENOL325 M2 (12:11)
[2020-12-21] MEDS ORDERED: SKELAXIN800 MG PO (12:11)
[2020-12-21] MEDS ORDERED: DEXTROSE 50% SYRINGE 50 ML IV PRN (12:45)
[2020-12-21] MEDS ORDERED: TEMAZEPAM 15 MG CAP PO PRN (12:45)
[2020-12-21 14:26] LABS: FERRITIN 2.95 ng/mL (4.63-204.00); THYROID STIMULATING HORMONE 1.19 uIU/mL (0.350-4.940)
[2020-12-21] MEDS: INSULIN REGULAR, HUMAN 100 UNIT/1 ML 3ML VIAL SQ SCH ×2 (16:30→21:00)
[2020-12-21] MEDS ORDERED: TEMAZEPAM 7.5 MG CAP PO PRN (20:30)
[2020-12-21] MEDS ORDERED: ONDANSETRON HCL 4 MG ORAL DISINTEGRATING TAB PO PRN (20:30)
[2020-12-21] MEDS ORDERED: METAXALONE 800 MG TAB PO PRN (20:30)
[2020-12-21] MEDS ORDERED: TIZANIDINE HCL 4 MG TAB PO PRN (20:30)
[2020-12-21] MEDS ORDERED: DIAZEPAM 5 MG TAB PO PRN (20:30)
[2020-12-21] MEDS: ATORVASTATIN 20 MG TAB PO SCH (21:00)
[2020-12-21] MEDS: GABAPENTIN 300 MG CAP PO SCH (22:19)
[2020-12-21] MEDS: DICYCLOMINE HCL 10 MG CAP PO SCH (22:19)
[2020-12-21] MEDS: HYDROCODONE/APAP 10MG-325MG TAB PO PRN (22:30)
[2020-12-22] VITALS (9 sets, daily range): BP systolic 101–136; BP diastolic 44–68
[2020-12-22 06:19] LABS: BASOPHILS # (AUTO) 0.1 (0.0-0.1); BASOPHILS % 0.8 % (0.0-1.0); EOSINOPHILS # (AUTO) 0.4 (0.0-0.4); EOSINOPHILS % 4.1 % (0.0-6.0); HEMATOCRIT 27.3 % (34.2-44.1); HEMOGLOBIN 7.2 g/dL (12.0-16.0); LYMPHOCYTES % 22.2 % (18.0-39.1); MEAN CORPUSCULAR HEMOGLOBIN 18.1 pg (28-32); MEAN CORPUSCULAR HGB CONC 26.4 g/dL (31-35); MEAN CORPUSCULAR VOLUME 68.8 fL (81-99); MONOCYTES # (AUTO) 0.8 (0.2-0.8); MONOCYTES % 8.3 % (4.4-11.3); NEUTROPHILS # (AUTO) 5.9 (2.1-6.9); NEUTROPHILS % 64.2 % (38.7-80.0); PLATELET COUNT 309 x10e3/uL (140-360); RED BLOOD COUNT 3.97 x10e6/uL (3.6-5.1); RED CELL DISTRIBUTION WIDTH 27.1 % (11.7-14.4)
[2020-12-22 06:37] LABS: ALANINE AMINOTRANSFERASE 8 IU/L (0-55); ALBUMIN 3.2 g/dL (3.5-5.0); ALKALINE PHOSPHATASE 71 IU/L (40-150); ANION GAP 12.3 mmol/L (8-16); BLOOD UREA NITROGEN 7 mg/dL (7-26); BUN/CREATININE RATIO 14 (6-25); CALCIUM 8.1 mg/dL (8.4-10.2); CARBON DIOXIDE 24 mmol/L (22-29); CHLORIDE 109 mmol/L (98-107); CREATININE, SERUM 0.51 mg/dL (0.57-1.11); EST GLOMERULAR FILTRATION RATE > 60 ML/MIN (60-); GLUCOSE 85 mg/dL (74-118); POTASSIUM 4.3 mmol/L (3.5-5.1); SODIUM 141 mmol/L (136-145)
[2020-12-22] MEDS: GLIPIZIDE 5 MG TAB PO SCH ×2 (07:30→16:30)
[2020-12-22] MEDS ORDERED: PANTOPRAZOLE SOD 40 MG TABEC PO SCH (07:30)
[2020-12-22] MEDS: INSULIN REGULAR, HUMAN 100 UNIT/1 ML 3ML VIAL SQ SCH ×4 (07:30→21:42)
[2020-12-22] MEDS: LOSARTAN POTASSIUM 100 MG TAB PO SCH (09:00)
[2020-12-22] MEDS: ESCITALOPRAM OXALATE 10 MG TAB PO SCH (09:00)
[2020-12-22] MEDS: METOPROLOL TARTRATE 25 MG TAB PO SCH (09:00)
[2020-12-22] MEDS: DICYCLOMINE HCL 10 MG CAP PO SCH ×3 (09:38→21:41)
[2020-12-22] MEDS: GABAPENTIN 300 MG CAP PO SCH ×3 (09:38→21:41)
[2020-12-22] MEDS ORDERED: SODIUM CHLORIDE 0.9% 250ML 250 ML IV NR (09:45)
[2020-12-22] MEDS: HYDROCODONE/APAP 10MG-325MG TAB PO PRN ×2 (15:52→21:41)
[2020-12-22] MEDS: ATORVASTATIN 20 MG TAB PO SCH (21:41)
[2020-12-23] VITALS (9 sets, daily range): BP systolic 119–136; BP diastolic 49–80
[2020-12-23] MEDS ORDERED: CYANOCOBALAMIN INJ 1,000 MCG/ML VIAL IM ONE (00:45)
[2020-12-23] MEDS: PANTOPRAZOLE 40 MG 10ML VIAL IV SCH ×2 (04:04→15:45)
[2020-12-23] MEDS: HYDROCODONE/APAP 10MG-325MG TAB PO PRN ×2 (04:05→21:40)
[2020-12-23 05:50] LABS: BASOPHILS # (AUTO) 0.1 (0.0-0.1); BASOPHILS % 0.7 % (0.0-1.0); EOSINOPHILS # (AUTO) 0.4 (0.0-0.4); EOSINOPHILS % 3.6 % (0.0-6.0); HEMATOCRIT 32.8 % (34.2-44.1); LYMPHOCYTES # (AUTO) 2.1 (1.0-3.2); LYMPHOCYTES % 17.4 % (18.0-39.1); MEAN CORPUSCULAR HEMOGLOBIN 19.7 pg (28-32); MEAN CORPUSCULAR HGB CONC 27.4 g/dL (31-35); MEAN CORPUSCULAR VOLUME 71.6 fL (81-99); MONOCYTES # (AUTO) 0.9 (0.2-0.8); MONOCYTES % 7.6 % (4.4-11.3); NEUTROPHILS # (AUTO) 8.3 (2.1-6.9); NEUTROPHILS % 70.3 % (38.7-80.0); PLATELET COUNT 319 x10e3/uL (140-360); RED BLOOD COUNT 4.58 x10e6/uL (3.6-5.1); RED CELL DISTRIBUTION WIDTH 27.9 % (11.7-14.4)
[2020-12-23 06:22] LABS: ANION GAP 12.3 mmol/L (8-16); BLOOD UREA NITROGEN 12 mg/dL (7-26); BUN/CREATININE RATIO 22 (6-25); CALCIUM 8.2 mg/dL (8.4-10.2); CARBON DIOXIDE 23 mmol/L (22-29); CHLORIDE 107 mmol/L (98-107); CREATININE, SERUM 0.54 mg/dL (0.57-1.11); EST GLOMERULAR FILTRATION RATE > 60 ML/MIN (60-); GLUCOSE 122 mg/dL (74-118); POTASSIUM 4.3 mmol/L (3.5-5.1); SODIUM 138 mmol/L (136-145)
[2020-12-23 07:27] LABS: HYPOCHROMASIA MODERATE; MICROCYTOSIS SLIG; PLATELET ESTIMATE ADEQUATE; PLATELET MORPHOLOGY COMMENT NORMAL; POIKILOCYTOSIS SLIGHT; RBC MORPHOLOGY COMMENT ABNORMAL
[2020-12-23] MEDS: GLIPIZIDE 5 MG TAB PO SCH ×2 (09:09→15:45)
[2020-12-23] MEDS: DICYCLOMINE HCL 10 MG CAP PO SCH ×3 (09:10→21:40)
[2020-12-23] MEDS: GABAPENTIN 300 MG CAP PO SCH ×3 (09:11→21:40)
[2020-12-23] MEDS: LOSARTAN POTASSIUM 100 MG TAB PO SCH (09:11)
[2020-12-23] MEDS: METOPROLOL TARTRATE 25 MG TAB PO SCH (09:12)
[2020-12-23] MEDS: LIDOCAINE 4% PATCH TP SCH (09:16)
[2020-12-23] MEDS: ESCITALOPRAM OXALATE 10 MG TAB PO SCH (09:47)
[2020-12-23] MEDS: CYANOCOBALAMIN INJ 1,000 MCG/ML VIAL IM SCH (09:47)
[2020-12-23] MEDS: INSULIN REGULAR, HUMAN 100 UNIT/1 ML 3ML VIAL SQ SCH ×4 (10:10→21:40)
[2020-12-23] MEDS: IRON SUCROSE 100 MG in SODIUM CHLORIDE 0.9% 100 ML 100 ML IV SCH (10:31)
[2020-12-23 12:30] LABS: INR 0.92
[2020-12-23] MEDS: ATORVASTATIN 20 MG TAB PO SCH (21:40)
[2020-12-24] VITALS (7 sets, daily range): BP systolic 118–133; BP diastolic 44–98
[2020-12-24] MEDS: PANTOPRAZOLE 40 MG 10ML VIAL IV SCH ×2 (03:47→15:22)
[2020-12-24] MEDS: INSULIN REGULAR, HUMAN 100 UNIT/1 ML 3ML VIAL SQ SCH ×4 (07:30→20:50)
[2020-12-24] MEDS: GLIPIZIDE 5 MG TAB PO SCH ×2 (07:30→16:06)
[2020-12-24] MEDS: CYANOCOBALAMIN INJ 1,000 MCG/ML VIAL IM SCH ×2 (08:41→09:00)
[2020-12-24] MEDS: IRON SUCROSE 100 MG in SODIUM CHLORIDE 0.9% 100 ML 100 ML IV SCH ×2 (08:42→13:08)
[2020-12-24] MEDS: LIDOCAINE 4% PATCH TP SCH ×2 (08:42→11:47)
[2020-12-24] MEDS: DICYCLOMINE HCL 10 MG CAP PO SCH ×3 (08:43→20:52)
[2020-12-24] MEDS: METOPROLOL TARTRATE 25 MG TAB PO SCH (08:43)
[2020-12-24] MEDS: GABAPENTIN 300 MG CAP PO SCH ×3 (08:43→20:53)
[2020-12-24] MEDS: LOSARTAN POTASSIUM 100 MG TAB PO SCH (09:00)
[2020-12-24] MEDS: ESCITALOPRAM OXALATE 10 MG TAB PO SCH (09:00)
[2020-12-24] MEDS: HYDROCODONE/APAP 10MG-325MG TAB PO PRN (10:18)
[2020-12-24] MEDS ORDERED: IOPAMIDOL 370 MG/ML 200 ML INFUS..BTL INJ ONE (11:19)
[2020-12-24] MEDS ORDERED: SODIUM CHLORIDE 0.9% 50ML 50 ML ONE (11:19)
[2020-12-24] MEDS ORDERED: PROPOFOL IV EMULSION 10 MG/ML 20 ML VIAL ONE (13:00)
[2020-12-24] MEDS ORDERED: MIDAZOLAM HCL 2 MG/2 ML VIAL ONE (13:10)
[2020-12-24] MEDS ORDERED: FENTANYL CITRATE/PF 100MCG/2 ML INJ ONE (13:10)
[2020-12-24] MEDS ORDERED: SODIUM CHLORIDE 0.9% 250ML 250 ML ONE (13:19)
[2020-12-24 13:42] LABS: BASOPHILS # (AUTO) 0.1 (0.0-0.1); EOSINOPHILS # (AUTO) 0.5 (0.0-0.4); EOSINOPHILS % 5.3 % (0.0-6.0); HEMATOCRIT 33.4 % (34.2-44.1); HEMOGLOBIN 8.9 g/dL (12.0-16.0); LYMPHOCYTES # (AUTO) 1.8 (1.0-3.2); LYMPHOCYTES % 18.1 % (18.0-39.1); MEAN CORPUSCULAR HEMOGLOBIN 19.6 pg (28-32); MEAN CORPUSCULAR HGB CONC 26.6 g/dL (31-35); MEAN CORPUSCULAR VOLUME 73.6 fL (81-99); MONOCYTES # (AUTO) 0.8 (0.2-0.8); MONOCYTES % 7.9 % (4.4-11.3); NEUTROPHILS # (AUTO) 6.5 (2.1-6.9); NEUTROPHILS % 67.3 % (38.7-80.0); PLATELET COUNT 254 x10e3/uL (140-360); RED BLOOD COUNT 4.54 x10e6/uL (3.6-5.1); RED CELL DISTRIBUTION WIDTH 28.7 % (11.7-14.4)
[2020-12-24] MEDS: ACETAMINOPHEN 325 MG TAB PO PRN (16:12)
[2020-12-24] MEDS ORDERED: HEPARIN SOD (PORCINE) 1000 UNIT/ML SDV IV ONE (16:24)
[2020-12-24] MEDS: ATORVASTATIN 20 MG TAB PO SCH (20:52)
[2020-12-25 00:37] VITALS: BP 132/70
[2020-12-25] MEDS: PANTOPRAZOLE 40 MG 10ML VIAL IV SCH (03:08)
[2020-12-25 06:01] VITALS: BP 119/55
[2020-12-25 06:07] LABS: ANION GAP 12.1 mmol/L (8-16); BLOOD UREA NITROGEN 11 mg/dL (7-26); BUN/CREATININE RATIO 20 (6-25); CARBON DIOXIDE 24 mmol/L (22-29); CHLORIDE 109 mmol/L (98-107); CREATININE, SERUM 0.54 mg/dL (0.57-1.11); EST GLOMERULAR FILTRATION RATE > 60 ML/MIN (60-); GLUCOSE 188 mg/dL (74-118); POTASSIUM 4.1 mmol/L (3.5-5.1); SODIUM 141 mmol/L (136-145)
[2020-12-25 06:41] LABS: BASOPHILS # (AUTO) 0.1 (0.0-0.1); BASOPHILS % 0.5 % (0.0-1.0); EOSINOPHILS # (AUTO) 0.6 (0.0-0.4); EOSINOPHILS % 5.6 % (0.0-6.0); HEMATOCRIT 31.7 % (34.2-44.1); HEMOGLOBIN 8.5 g/dL (12.0-16.0); LYMPHOCYTES # (AUTO) 1.6 (1.0-3.2); LYMPHOCYTES % 15.8 % (18.0-39.1); MEAN CORPUSCULAR HEMOGLOBIN 19.6 pg (28-32); MEAN CORPUSCULAR HGB CONC 26.8 g/dL (31-35); MONOCYTES # (AUTO) 0.9 (0.2-0.8); MONOCYTES % 8.8 % (4.4-11.3); NEUTROPHILS # (AUTO) 7.1 (2.1-6.9); NEUTROPHILS % 68.8 % (38.7-80.0); PLATELET COUNT 264 x10e3/uL (140-360); RED BLOOD COUNT 4.34 x10e6/uL (3.6-5.1); RED CELL DISTRIBUTION WIDTH 29.4 % (11.7-14.4)
[2020-12-25 07:46] VITALS: BP 121/53
[2020-12-25 07:46] LABS: HYPOCHROMASIA MODERATE; PLATELET ESTIMATE ADEQUATE; PLATELET MORPHOLOGY COMMENT NORMAL; RBC MORPHOLOGY COMMENT ABNORMAL
[2020-12-25 07:47] LABS: POLYCHROMASIA FEW; TARGET CELLS FEW
[2020-12-25 07:48] LABS: ANISOCYTOSIS MARKED; ELLIPTOCYTE, RBC SLIGHT; OVALOCYTES FEW
[2020-12-25] MEDS: INSULIN REGULAR, HUMAN 100 UNIT/1 ML 3ML VIAL SQ SCH ×2 (07:53→11:30)
[2020-12-25] MEDS: GLIPIZIDE 5 MG TAB PO SCH (07:58)
[2020-12-25 08:20] VITALS: BP 121/53
[2020-12-25] MEDS: HYDROCODONE/APAP 10MG-325MG TAB PO PRN (09:47)
[2020-12-25] MEDS: DICYCLOMINE HCL 10 MG CAP PO SCH (09:55)
[2020-12-25] MEDS: CYANOCOBALAMIN INJ 1,000 MCG/ML VIAL IM SCH (09:55)
[2020-12-25] MEDS: ESCITALOPRAM OXALATE 10 MG TAB PO SCH (09:56)
[2020-12-25] MEDS: IRON SUCROSE 100 MG in SODIUM CHLORIDE 0.9% 100 ML 100 ML IV SCH (09:56)
[2020-12-25] MEDS: LOSARTAN POTASSIUM 100 MG TAB PO SCH (09:56)
[2020-12-25] MEDS: GABAPENTIN 300 MG CAP PO SCH (09:56)
[2020-12-25] MEDS: METOPROLOL TARTRATE 25 MG TAB PO SCH (09:56)
[2020-12-25] MEDS: LIDOCAINE 4% PATCH TP SCH (09:56)
[2020-12-25] MEDS: ACETAMINOPHEN 325 MG TAB PO PRN (10:58)
[2020-12-25 11:54] VITALS: BP 139/58
[2020-12-25 16:10] VITALS: BP 126/70
== END 2020-12-25 16:25 | disposition home health service (06) | DRG 393 ==
LOC: ER 23:59 → ERHOLD 12-21 00:59 → MED/SURG3 12-21 05:38
PROC: 30233N1 Transfusion of Nonautologous Red Blood Cells into Peripheral Vein, Percutaneous Approach (ICD-10-PCS; 2020-12-21)
PROC: 0DB98ZX Excision of Duodenum, Via Natural or Artificial Opening Endoscopic, Diagnostic (ICD-10-PCS; 2020-12-24)
PROC: 0DB78ZX Excision of Stomach, Pylorus, Via Natural or Artificial Opening Endoscopic, Diagnostic (ICD-10-PCS; principal; 2020-12-24 09:15)
PROC: 0D758ZZ Dilation of Esophagus, Via Natural or Artificial Opening Endoscopic (ICD-10-PCS; 2020-12-24 09:15)
DX: K31.7 Polyp of stomach and duodenum (principal); K29.71 Gastritis, unspecified, with bleeding; I25.10 Atherosclerotic heart disease of native coronary artery without angina pectoris; Z86.73 Personal history of transient ischemic attack (TIA), and cerebral infarction without residual deficits; E11.9 Type 2 diabetes mellitus without complications; Z95.5 Presence of coronary angioplasty implant and graft; G89.29 Other chronic pain; J44.9 Chronic obstructive pulmonary disease, unspecified; D50.9 Iron deficiency anemia, unspecified; F41.9 Anxiety disorder, unspecified; F32.9 Major depressive disorder, single episode, unspecified; K22.2 Esophageal obstruction; K20.90 Esophagitis, unspecified without bleeding; Z20.822 Contact with and (suspected) exposure to COVID-19
CPT/HCPCS: 36415; 43239; 43450; 71045; 71260; 74177; 78278; 80048; 80053; 82270; 82550; 82553; 82607; 82728; 82948; 83540; 84436; 84443; 84466; 84479; 84484; 85025; 85045; 85610; 86850; 86900; 86920; 88305; 88312; 93005; 96372; 99284; A9512; J1644; J1756; J1817; J2250; J3010; J3420; J7050; P9016; Q9967; U0002

== ENCOUNTER 2021-04-01 19:48 | Emergency (ER) | payer MEDICARE, BC ==
[~2021-04-01] VITALS: Ht 154.9 cm; Wt 56.2 kg
[~2021-04-01 19:48] MED LIST changes: +FARXIGA10 MG PO; +SKELAXIN800 MG PO; +TYLENOL325 M2
[2021-04-01 20:18] LABS: BASOPHILS % 0.5 % (0.0-1.0); EOSINOPHILS # (AUTO) 0.1 (0.0-0.4); EOSINOPHILS % 1.5 % (0.0-6.0); HEMATOCRIT 37.1 % (34.2-44.1); HEMOGLOBIN 10.9 g/dL (12.0-16.0); LYMPHOCYTES # (AUTO) 1.2 (1.0-3.2); MEAN CORPUSCULAR HEMOGLOBIN 24.9 pg (28-32); MEAN CORPUSCULAR HGB CONC 29.4 g/dL (31-35); MEAN CORPUSCULAR VOLUME 84.9 fL (81-99); MONOCYTES # (AUTO) 0.6 (0.2-0.8); MONOCYTES % 6.8 % (4.4-11.3); NEUTROPHILS # (AUTO) 6.8 (2.1-6.9); NEUTROPHILS % 76.9 % (38.7-80.0); PLATELET COUNT 292 x10e3/uL (140-360); RED BLOOD COUNT 4.37 x10e6/uL (3.6-5.1)
[2021-04-01 20:36] LABS: ALANINE AMINOTRANSFERASE 17 IU/L (0-55); ANION GAP 16.5 mmol/L (8-16); BLOOD UREA NITROGEN 17 mg/dL (7-26); BUN/CREATININE RATIO 26 (6-25); CALCIUM 9.2 mg/dL (8.4-10.2); CARBON DIOXIDE 22 mmol/L (22-29); CHLORIDE 106 mmol/L (98-107); CREATININE, SERUM 0.66 mg/dL (0.57-1.11); EST GLOMERULAR FILTRATION RATE 88 ML/MIN (60-); GLUCOSE 146 mg/dL (74-118); POTASSIUM 3.5 mmol/L (3.5-5.1); SODIUM 141 mmol/L (136-145)
[2021-04-01 20:37] LABS: ALBUMIN 4.1 g/dL (3.5-5.0); ALBUMIN/GLOBULIN RATIO 1.2 (0.8-2.0); ALKALINE PHOSPHATASE 82 IU/L (40-150); CREATINE KINASE 39 IU/L (29-168)
[2021-04-01] MEDS ORDERED: SODIUM CHLORIDE 0.9% 50ML 50 ML ONE (20:53)
[2021-04-01] MEDS ORDERED: IOPAMIDOL 370 MG/ML 200 ML INFUS..BTL INJ ONE (20:54)
[2021-04-01 22:27] LABS: CLARITY,URINE SL CLOUDY (CLEAR); COLOR,URINE YELLOW (YELLOW); KETONES,URINE 2+ (NEGATIVE); LEUKOCYTE ESTERASE ,URINE NEGATIVE (NEGATIVE); NITRITE,URINE NEGATIVE (NEGATIVE); PROTEIN,URINE DIPSTICK TRACE (NEGATIVE); URINE UROBILINOGEN 1 mg/dL (0.2 - 1)
[2021-04-01 22:33] LABS: BACTERIA,URINE FEW /HPF; EPITHELIAL CELLS,URINE MODERATE /LPF; RBC,URINE 0-5 /HPF (0-5); WBC,URINE (MAN) 0-5 /HPF (0-5)
[2021-04-01] MEDS ORDERED: REGLAN10 MG PO (23:14)
[2021-04-02 02:34] VITALS: BP 132/65
== END 2021-04-02 00:30 | disposition home or self-care (01) ==
LOC: ER 20:03
DX: N39.0 Urinary tract infection, site not specified (principal); I10 Essential (primary) hypertension; E11.40 Type 2 diabetes mellitus with diabetic neuropathy, unspecified; Z79.84 Long term (current) use of oral hypoglycemic drugs; J44.9 Chronic obstructive pulmonary disease, unspecified; K57.30 Diverticulosis of large intestine without perforation or abscess without bleeding; Z20.822 Contact with and (suspected) exposure to COVID-19; Z85.51 Personal history of malignant neoplasm of bladder; Z86.73 Personal history of transient ischemic attack (TIA), and cerebral infarction without residual deficits; Z79.02 Long term (current) use of antithrombotics/antiplatelets; Z79.82 Long term (current) use of aspirin; Z79.899 Other long term (current) drug therapy; Z90.49 Acquired absence of other specified parts of digestive tract
CPT/HCPCS: 36415; 71045; 74177; 80053; 81001; 82550; 82553; 83690; 84484; 85025; 99284; Q9967; U0002

== ENCOUNTER 2021-04-12 18:39 | Emergency (ER) | payer MEDICARE, BC ==
[~2021-04-12] VITALS: Ht 154.9 cm; Wt 56.2 kg
[~2021-04-12 18:39] MED LIST changes: +REGLAN10 MG PO
[2021-04-12] MEDS ORDERED: ONDANSETRON HCL INJ 2MG/ML 2ML 2 MG/ML VIAL IV STA ×2 (18:56→23:26)
[2021-04-12] MEDS ORDERED: SODIUM CHLORIDE 0.9% 1000ML 1,000 ML IV ONE (19:00)
[2021-04-12 19:24] LABS: BASOPHILS # (AUTO) 0.1 (0.0-0.1); BASOPHILS % 0.6 % (0.0-1.0); EOSINOPHILS # (AUTO) 0.2 (0.0-0.4); EOSINOPHILS % 2.1 % (0.0-6.0); HEMATOCRIT 42.9 % (34.2-44.1); HEMOGLOBIN 12.5 g/dL (12.0-16.0); LYMPHOCYTES # (AUTO) 2.1 (1.0-3.2); LYMPHOCYTES % 23.7 % (18.0-39.1); MEAN CORPUSCULAR HEMOGLOBIN 24.5 pg (28-32); MEAN CORPUSCULAR HGB CONC 29.1 g/dL (31-35); MONOCYTES # (AUTO) 0.6 (0.2-0.8); MONOCYTES % 6.2 % (4.4-11.3); NEUTROPHILS % 67.1 % (38.7-80.0); PLATELET COUNT 310 x10e3/uL (140-360); RED BLOOD COUNT 5.11 x10e6/uL (3.6-5.1); RED CELL DISTRIBUTION WIDTH 18.6 % (11.7-14.4)
[2021-04-12 19:44] LABS: AMYLASE 88 U/L (25-125); LIPASE 22 U/L (8-78)
[2021-04-12 20:29] LABS: CLARITY,URINE TURBID (CLEAR); COLOR,URINE YELLOW (YELLOW)
[2021-04-12 20:30] LABS: KETONES,URINE 2+ (NEGATIVE); LEUKOCYTE ESTERASE ,URINE SMALL (NEGATIVE); NITRITE,URINE NEGATIVE (NEGATIVE); PROTEIN,URINE DIPSTICK 1+ (NEGATIVE); URINE UROBILINOGEN 0.2 mg/dL (0.2 - 1)
[2021-04-12 20:37] LABS: BACTERIA,URINE MODERATE /HPF; WBC,URINE (MAN) 0-5 /HPF (0-5)
[2021-04-12 20:38] LABS: YEAST,URINE MODERATE
[2021-04-12 21:39] LABS: ALANINE AMINOTRANSFERASE 14 IU/L (0-55); ALBUMIN 4.6 g/dL (3.5-5.0); ALBUMIN/GLOBULIN RATIO 1.2 (0.8-2.0); ALKALINE PHOSPHATASE 101 IU/L (40-150); ANION GAP 19.4 mmol/L (8-16); BLOOD UREA NITROGEN 12 mg/dL (7-26); BUN/CREATININE RATIO 18 (6-25); CALCIUM 9.4 mg/dL (8.4-10.2); CARBON DIOXIDE 19 mmol/L (22-29); CHLORIDE 105 mmol/L (98-107); CREATINE KINASE 53 IU/L (29-168); CREATININE, SERUM 0.67 mg/dL (0.57-1.11); EST GLOMERULAR FILTRATION RATE 86 ML/MIN (60-); GLUCOSE 157 mg/dL (74-118); POTASSIUM 4.4 mmol/L (3.5-5.1); SODIUM 139 mmol/L (136-145)
[2021-04-12] MEDS ORDERED: IOPAMIDOL 370 MG/ML 200 ML INFUS..BTL INJ ONE (23:02)
[2021-04-12] MEDS ORDERED: SODIUM CHLORIDE 0.9% 50ML 50 ML ONE (23:02)
== END 2021-04-13 00:57 | disposition home or self-care (01) ==
LOC: ER 19:07
DX: R31.9 Hematuria, unspecified (principal); R10.30 Lower abdominal pain, unspecified; R11.2 Nausea with vomiting, unspecified; R05 Cough; R51.9 Headache, unspecified; E11.65 Type 2 diabetes mellitus with hyperglycemia; I10 Essential (primary) hypertension; J44.9 Chronic obstructive pulmonary disease, unspecified; Z20.822 Contact with and (suspected) exposure to COVID-19; Z86.73 Personal history of transient ischemic attack (TIA), and cerebral infarction without residual deficits; Z85.51 Personal history of malignant neoplasm of bladder
CPT/HCPCS: 36415; 71045; 74177; 80053; 81001; 82150; 82550; 82553; 83690; 84484; 85025; 93005; 99284; J2405; J7030; Q9967; U0002

== ENCOUNTER 2021-06-30 16:59 | Emergency (ER) | payer MEDICARE, BC ==
[~2021-06-30] VITALS: Ht 154.9 cm; Wt 56.2 kg
[2021-06-30] MEDS ORDERED: KETOROLAC TROMETHAMINE 30 MG/ML VIAL IV STA (17:06)
[2021-06-30] MEDS ORDERED: ONDANSETRON HCL INJ 2MG/ML 2ML 2 MG/ML VIAL IV STA (17:38)
[2021-06-30] MEDS ORDERED: Morphine 2mg Syringe 2 MG/ML SYR IV STA (17:38)
[2021-06-30 17:46] LABS: BASOPHILS # (AUTO) 0.1 (0.0-0.1); BASOPHILS % 0.8 % (0.0-1.0); EOSINOPHILS # (AUTO) 0.3 (0.0-0.4); EOSINOPHILS % 3.4 % (0.0-6.0); HEMATOCRIT 31.5 % (34.2-44.1); HEMOGLOBIN 8.4 g/dL (12.0-16.0); LYMPHOCYTES # (AUTO) 1.6 (1.0-3.2); MEAN CORPUSCULAR HEMOGLOBIN 19.2 pg (28-32); MEAN CORPUSCULAR HGB CONC 26.7 g/dL (31-35); MEAN CORPUSCULAR VOLUME 72.1 fL (81-99); MONOCYTES # (AUTO) 0.7 (0.2-0.8); NEUTROPHILS # (AUTO) 6.2 (2.1-6.9); NEUTROPHILS % 69.5 % (38.7-80.0); PLATELET COUNT 320 x10e3/uL (140-360); RED BLOOD COUNT 4.37 x10e6/uL (3.6-5.1); RED CELL DISTRIBUTION WIDTH 18.7 % (11.7-14.4)
[2021-06-30 17:51] LABS: CLARITY,URINE HAZY (CLEAR); COLOR,URINE YELLOW (YELLOW)
[2021-06-30 17:52] LABS: KETONES,URINE NEGATIVE (NEGATIVE); LEUKOCYTE ESTERASE ,URINE TRACE (NEGATIVE); NITRITE,URINE NEGATIVE (NEGATIVE); PROTEIN,URINE DIPSTICK NEGATIVE (NEGATIVE); URINE UROBILINOGEN 1 mg/dL (0.2 - 1)
[2021-06-30 17:53] LABS: BACTERIA,URINE FEW /HPF; EPITHELIAL CELLS,URINE FEW /LPF; MUCUS,URINE FEW (RARE); WBC,URINE (MAN) >50 /HPF (0-5); YEAST,URINE FEW
[2021-06-30 18:02] LABS: ALBUMIN/GLOBULIN RATIO 1.1 (0.8-2.0); CALCIUM 8.6 mg/dL (8.4-10.2); CREATININE, SERUM 0.74 mg/dL (0.57-1.11)
[2021-06-30] MEDS ORDERED: IOPAMIDOL 370 MG/ML 200 ML INFUS..BTL INJ ONE (18:22)
[2021-06-30] MEDS ORDERED: SODIUM CHLORIDE 0.9% 50ML 50 ML ONE (18:22)
[2021-06-30 18:33] LABS: ANISOCYTOSIS SLIGHT; CREATINE KINASE 43 IU/L (29-168); MICROCYTOSIS SLIGHT; PLATELET ESTIMATE ADEQUATE; PLATELET MORPHOLOGY COMMENT NORMAL; POIKILOCYTOSIS SLIGHT
[2021-06-30] MEDS ORDERED: CIPROFLOXACIN 500 MG TAB PO STA (19:10)
[2021-06-30] MEDS ORDERED: CIPRO500 MG PO (19:18)
[2021-06-30] MEDS ORDERED: PYRIDIUM200 MG PO (19:18)
[2021-06-30] MEDS ORDERED: BACTRIM DS TAB1 EACH PO (19:21)
[2021-06-30] MEDS ORDERED: TRIMETHOPRIM/SULFAMETHOXAZOLE 160-800 MG TAB PO STA (19:22)
== END 2021-06-30 19:41 | disposition home or self-care (01) ==
LOC: ER 17:07
DX: R10.30 Lower abdominal pain, unspecified (principal); N39.0 Urinary tract infection, site not specified; E11.65 Type 2 diabetes mellitus with hyperglycemia; I10 Essential (primary) hypertension; Z85.51 Personal history of malignant neoplasm of bladder; Z86.73 Personal history of transient ischemic attack (TIA), and cerebral infarction without residual deficits
CPT/HCPCS: 36415; 74177; 80053; 81001; 82550; 82553; 83690; 84484; 85025; 93005; 99284; J2270; J2405; Q9967

== ENCOUNTER 2021-10-30 12:39 | Inpatient (IN) | payer MEDICARE, BC ==
[~2021-10-30] VITALS: Ht 154.9 cm; Wt 57.3 kg
[~2021-10-30 12:39] MED LIST changes: +BACTRIM DS TAB1 EACH PO; +CIPRO500 MG PO; +OXYGEN INH; +PYRIDIUM200 MG PO; -TYLENOL325 M2; +TYLENOL325 M2 PO
[2021-10-30] MEDS ORDERED: ACETAMINOPHEN 325 MG TAB PO STA (12:50)
[2021-10-30] MEDS ORDERED: SODIUM CHLORIDE 0.9% 250ML 250 ML IV ONE (13:00)
[2021-10-30] MEDS ORDERED: ONDANSETRON HCL INJ 2MG/ML 2ML 2 MG/ML VIAL IV PRN (13:00)
[2021-10-30] MEDS ORDERED: SODIUM CHLORIDE FLUSH 10 ML SYR INJ PRN (13:00)
[2021-10-30 14:30] VITALS: BP_SYST 139; BP_SYST 151; BP_DIAS 63; BP_DIAS 72
[2021-10-30] MEDS ORDERED: ALBUTEROL SULF 0.083% NEB SOLN 3 ML NEB INH PRN (16:15)
[2021-10-30] MEDS ORDERED: DIAZEPAM 5 MG TAB PO PRN (16:15)
[2021-10-30] MEDS ORDERED: ALBUTEROL SULFATE HFA 8GM INHALATION AEROSOL INH PRN (16:15)
[2021-10-30] MEDS ORDERED: NON-FORMULARY MEDICATION (Acetaminophen (Tylenol) 650 MG) PO SCH (16:15)
[2021-10-30 16:48] LABS: FERRITIN 2.24 ng/mL (4.63-204.00); FREE THYROXINE INDEX 2.1047 (1.4-3.8); THYROID STIMULATING HORMONE 1.712 uIU/mL (0.350-4.940)
[2021-10-30] MEDS ORDERED: ACETAMINOPHEN 325 MG TAB PO PRN (17:00)
[2021-10-30] MEDS: GLIPIZIDE 5 MG TAB PO SCH (18:27)
[2021-10-30] MEDS ORDERED: SODIUM CHLORIDE 0.9% 250ML 250 ML ONE ×2 (19:53→21:30)
[2021-10-30 20:00] VITALS: BP 140/63
[2021-10-30] MEDS: GABAPENTIN 300 MG CAP PO SCH (21:36)
[2021-10-30 23:27] VITALS: BP 140/63
[2021-10-30 23:55] VITALS: BP 143/59
[2021-10-31] VITALS (7 sets, daily range): BP systolic 117–156; BP diastolic 59–77
[2021-10-31 05:13] LABS: BASOPHILS # (AUTO) 0.1 (0.0-0.1); BASOPHILS % 0.7 % (0.0-1.0); EOSINOPHILS # (AUTO) 0.4 (0.0-0.4); EOSINOPHILS % 3.9 % (0.0-6.0); HEMATOCRIT 33.8 % (34.2-44.1); HEMOGLOBIN 9.4 g/dL (12.0-16.0); LYMPHOCYTES # (AUTO) 1.8 (1.0-3.2); LYMPHOCYTES % 16.3 % (18.0-39.1); MEAN CORPUSCULAR HGB CONC 27.8 g/dL (31-35); MEAN CORPUSCULAR VOLUME 68.4 fL (81-99); MONOCYTES % 9.4 % (4.4-11.3); NEUTROPHILS # (AUTO) 7.7 (2.1-6.9); NEUTROPHILS % 69.3 % (38.7-80.0); PLATELET COUNT 295 x10e3/uL (140-360); RED BLOOD COUNT 4.94 x10e6/uL (3.6-5.1)
[2021-10-31] MEDS: GLIPIZIDE 5 MG TAB PO SCH ×2 (07:30→16:30)
[2021-10-31] MEDS: METOCLOPRAMIDE HCL 10 MG TAB PO SCH (07:30)
[2021-10-31] MEDS: (Dapagliflozin Propanediol (Farxiga) 10 MG) PO SCH (09:00)
[2021-10-31] MEDS: ESCITALOPRAM OXALATE 10 MG TAB PO SCH (09:13)
[2021-10-31] MEDS: LOSARTAN POTASSIUM 100 MG TAB PO SCH (09:13)
[2021-10-31] MEDS: ATORVASTATIN 20 MG TAB PO SCH (09:13)
[2021-10-31] MEDS: PANTOPRAZOLE SOD 40 MG TABEC PO SCH (09:14)
[2021-10-31] MEDS: METOPROLOL TARTRATE 25 MG TAB PO SCH (09:14)
[2021-10-31] MEDS: GABAPENTIN 300 MG CAP PO SCH ×3 (09:14→21:26)
[2021-10-31] MEDS: IRON SUCROSE 100 MG in SODIUM CHLORIDE 0.9% 100 ML 100 ML IV SCH (11:19)
[2021-10-31] MEDS ORDERED: LIDOCAINE HCL 2% LOCAL INJ 5 ML SDV VIAL INJ ONE (12:52)
[2021-10-31] MEDS ORDERED: PROPOFOL IV EMULSION 10 MG/ML 20 ML VIAL ONE (12:52)
[2021-10-31] MEDS ORDERED: MIDAZOLAM HCL 2 MG/2 ML VIAL ONE (13:10)
[2021-10-31] MEDS ORDERED: ONDANSETRON HCL 4 MG ORAL DISINTEGRATING TAB PO PRN (14:30)
[2021-10-31] MEDS: HYDROCODONE/APAP 10MG-325MG TAB PO PRN (20:38)
[2021-11-01 00:25] VITALS: BP 136/63
[2021-11-01 04:00] VITALS: BP 132/58
[2021-11-01 07:48] VITALS: BP 143/61
[2021-11-01 07:59] VITALS: BP 143/61
[2021-11-01] MEDS: GABAPENTIN 300 MG CAP PO SCH (08:37)
[2021-11-01] MEDS: LOSARTAN POTASSIUM 100 MG TAB PO SCH (08:38)
[2021-11-01] MEDS: GLIPIZIDE 5 MG TAB PO SCH (08:38)
[2021-11-01] MEDS: METOPROLOL TARTRATE 25 MG TAB PO SCH (08:38)
[2021-11-01] MEDS: ESCITALOPRAM OXALATE 10 MG TAB PO SCH (08:39)
[2021-11-01] MEDS: METOCLOPRAMIDE HCL 10 MG TAB PO SCH (08:39)
[2021-11-01] MEDS: PANTOPRAZOLE SOD 40 MG TABEC PO SCH (08:39)
[2021-11-01] MEDS: ATORVASTATIN 20 MG TAB PO SCH (08:40)
[2021-11-01] MEDS: (Dapagliflozin Propanediol (Farxiga) 10 MG) PO SCH (08:40)
[2021-11-01] MEDS: HYDROCODONE/APAP 10MG-325MG TAB PO PRN (08:41)
[2021-11-01 11:40] VITALS: BP 119/72
[2021-11-01] MEDS: IRON SUCROSE 100 MG in SODIUM CHLORIDE 0.9% 100 ML 100 ML IV SCH (11:58)
== END 2021-11-01 12:42 | disposition home or self-care (01) | DRG 379 ==
LOC: ER 13:05 → ERHOLD 13:06 → MED/SURG3 14:26
PROC: 0DB78ZX Excision of Stomach, Pylorus, Via Natural or Artificial Opening Endoscopic, Diagnostic (ICD-10-PCS; 2021-10-31)
PROC: 0DB68ZX Excision of Stomach, Via Natural or Artificial Opening Endoscopic, Diagnostic (ICD-10-PCS; 2021-10-31)
PROC: 0DB48ZX Excision of Esophagogastric Junction, Via Natural or Artificial Opening Endoscopic, Diagnostic (ICD-10-PCS; 2021-10-31)
PROC: 0D758ZZ Dilation of Esophagus, Via Natural or Artificial Opening Endoscopic (ICD-10-PCS; principal; 2021-10-31 07:30)
PROC: 0DB98ZX Excision of Duodenum, Via Natural or Artificial Opening Endoscopic, Diagnostic (ICD-10-PCS; 2021-10-31 07:30)
DX: K29.71 Gastritis, unspecified, with bleeding (principal); D50.9 Iron deficiency anemia, unspecified; K22.2 Esophageal obstruction; K31.7 Polyp of stomach and duodenum; J44.9 Chronic obstructive pulmonary disease, unspecified; R13.10 Dysphagia, unspecified; M19.90 Unspecified osteoarthritis, unspecified site; I10 Essential (primary) hypertension; K44.9 Diaphragmatic hernia without obstruction or gangrene; K22.89 Other specified disease of esophagus; K31.89 Other diseases of stomach and duodenum; F17.200 Nicotine dependence, unspecified, uncomplicated; Z86.73 Personal history of transient ischemic attack (TIA), and cerebral infarction without residual deficits; M81.0 Age-related osteoporosis without current pathological fracture; E11.40 Type 2 diabetes mellitus with diabetic neuropathy, unspecified
CPT/HCPCS: 36415; 43235; 43450; 82607; 82728; 82746; 82948; 83540; 84436; 84443; 84466; 84479; 85025; 86850; 86900; 86920; 88305; 88312; 88342; 94799; 99251; 99284; J1756; J2001; J2250; J7050; P9016; U0002

== ENCOUNTER → 2021-12-20 | Outpatient (CLI) | payer MEDICARE, BC | LOC: DX 08:43 | PROVIDERS: ATTEND Internal Medicine Gastroenterology | DX: I10 Essential (primary) hypertension (principal) ==

== ENCOUNTER 2022-06-10 09:39 | Inpatient (IN) | payer MEDICARE, BC ==
[~2022-06-10] VITALS: Ht 157.5 cm; Wt 54.4 kg
[2022-06-10 10:28] LABS: BASOPHILS # (AUTO) 0.1 (0.0-0.1); BASOPHILS % 0.8 % (0.0-1.0); EOSINOPHILS # (AUTO) 0.3 (0.0-0.4); EOSINOPHILS % 3.1 % (0.0-6.0); HEMATOCRIT 48.7 % (34.2-44.1); LYMPHOCYTES # (AUTO) 1.8 (1.0-3.2); LYMPHOCYTES % 20.3 % (18.0-39.1); MEAN CORPUSCULAR HEMOGLOBIN 30.9 pg (28-32); MEAN CORPUSCULAR HGB CONC 30.8 g/dL (31-35); MEAN CORPUSCULAR VOLUME 100.2 fL (81-99); MONOCYTES # (AUTO) 0.8 (0.2-0.8); MONOCYTES % 8.9 % (4.4-11.3); NEUTROPHILS # (AUTO) 5.8 (2.1-6.9); NEUTROPHILS % 66.6 % (38.7-80.0); PLATELET COUNT 220 x10e3/uL (140-360); RED BLOOD COUNT 4.86 x10e6/uL (3.6-5.1); RED CELL DISTRIBUTION WIDTH 13.8 % (11.7-14.4)
[2022-06-10] MEDS ORDERED: DIATRIZOATE MEGL/DIATRIZOA SOD 30 ML BTL PO ONE (10:35)
[2022-06-10 10:52] LABS: ALBUMIN 3.7 g/dL (3.5-5.0); ALBUMIN/GLOBULIN RATIO 0.9 (0.8-2.0); ANION GAP 15.6 mmol/L (8-16); CALCIUM 9.4 mg/dL (8.4-10.2); CREATININE, SERUM 0.63 mg/dL (0.57-1.11); POTASSIUM 4.6 mmol/L (3.5-5.1)
[2022-06-10 11:01] LABS: CLARITY,URINE CLEAR (CLEAR); COLOR,URINE YELLOW (YELLOW); LEUKOCYTE ESTERASE ,URINE NEGATIVE (NEGATIVE); NITRITE,URINE NEGATIVE (NEGATIVE); PROTEIN,URINE DIPSTICK NEGATIVE (NEGATIVE)
[2022-06-10 11:02] LABS: KETONES,URINE NEGATIVE (NEGATIVE); URINE UROBILINOGEN 0.2 mg/dL (0.2 - 1)
[2022-06-10 11:18] LABS: BACTERIA,URINE MODERATE /HPF; EPITHELIAL CELLS,URINE FEW /LPF; RBC,URINE 0-5 /HPF (0-5)
[2022-06-10 11:19] LABS: RENAL EPITHELIAL CELLS,URINE RARE
[2022-06-10] MEDS ORDERED: IOPAMIDOL 370 MG/ML 100 ML INFUS..BTL INJ ONE (11:25)
[2022-06-10] MEDS ORDERED: Morphine 2mg Syringe 2 MG/ML SYR IV PRN (13:15)
[2022-06-10] MEDS: SODIUM CHLORIDE 0.9% 1000ML 1,000 ML IV SCH (13:15)
[2022-06-10] MEDS: METRONIDAZOLE 500MG/NS 100ML 100 ML IV SCH ×2 (14:42→20:49)
[2022-06-10] MEDS: ONDANSETRON HCL INJ 2MG/ML 2ML 2 MG/ML VIAL IV PRN ×2 (14:43→20:55)
[2022-06-10] MEDS ORDERED: Morphine 4mg INJECTION 4 MG/ML INJ IV ONE (14:45)
[2022-06-10] MEDS ORDERED: Morphine 4mg INJECTION 4 MG/ML INJ IV PRN (16:00)
[2022-06-10 16:53] VITALS: BP 146/82
[2022-06-10] MEDS ORDERED: QUETIAPINE FUMA25 MG PO (16:57)
[2022-06-10] MEDS ORDERED: ALBUTEROL SULFATE HFA 8GM INHALATION AEROSOL INH PRN (17:30)
[2022-06-10] MEDS ORDERED: ALBUTEROL SULF 0.083% NEB SOLN 3 ML NEB INH PRN (17:30)
[2022-06-10 18:25] VITALS: BP 146/82
[2022-06-10 20:31] VITALS: BP 122/57
[2022-06-10 20:35] VITALS: BP 123/70
[2022-06-10] MEDS: HYDROMORPHONE 2MG/ML 2 MG/ML ML IV PRN (20:45)
[2022-06-10] MEDS: QUETIAPINE FUMARATE 25 MG TAB PO SCH (20:49)
[2022-06-10] MEDS: GABAPENTIN 300 MG CAP PO SCH (20:49)
[2022-06-10] MEDS ORDERED: PROMETHAZINE 25MG/ NS 50ML (IV) IV PRN (22:00)
[2022-06-11] VITALS (9 sets, daily range): BP systolic 119–141; BP diastolic 51–90
[2022-06-11] MEDS: SODIUM CHLORIDE 0.9% 1000ML 1,000 ML IV SCH ×2 (02:35→14:26)
[2022-06-11] MEDS: METRONIDAZOLE 500MG/NS 100ML 100 ML IV SCH ×4 (03:56→21:56)
[2022-06-11 05:51] LABS: BASOPHILS % 0.4 % (0.0-1.0); EOSINOPHILS # (AUTO) 0.2 (0.0-0.4); EOSINOPHILS % 2.1 % (0.0-6.0); HEMOGLOBIN 12.5 g/dL (12.0-16.0); LYMPHOCYTES # (AUTO) 1.5 (1.0-3.2); LYMPHOCYTES % 16.3 % (18.0-39.1); MEAN CORPUSCULAR HEMOGLOBIN 30.7 pg (28-32); MEAN CORPUSCULAR HGB CONC 30.5 g/dL (31-35); MEAN CORPUSCULAR VOLUME 100.7 fL (81-99); MONOCYTES # (AUTO) 0.6 (0.2-0.8); MONOCYTES % 7.1 % (4.4-11.3); NEUTROPHILS # (AUTO) 6.6 (2.1-6.9); NEUTROPHILS % 73.9 % (38.7-80.0); PLATELET COUNT 194 x10e3/uL (140-360); RED BLOOD COUNT 4.07 x10e6/uL (3.6-5.1); RED CELL DISTRIBUTION WIDTH 13.5 % (11.7-14.4)
[2022-06-11 06:28] LABS: ALBUMIN 3.1 g/dL (3.5-5.0); ANION GAP 12.9 mmol/L (8-16); CALCIUM 8.3 mg/dL (8.4-10.2); CREATININE, SERUM 0.54 mg/dL (0.57-1.11); POTASSIUM 3.9 mmol/L (3.5-5.1)
[2022-06-11] MEDS ORDERED: PANTOPRAZOLE SOD 40 MG TABEC PO SCH (09:00)
[2022-06-11] MEDS: GLIPIZIDE 5 MG TAB PO SCH ×2 (09:20→16:30)
[2022-06-11] MEDS: ASPIRIN 81 MG CHEW TAB PO SCH (09:20)
[2022-06-11] MEDS: CLOPIDOGREL BISULFATE 75 MG TAB PO SCH (09:22)
[2022-06-11] MEDS: LOSARTAN POTASSIUM 100 MG TAB PO SCH (09:24)
[2022-06-11] MEDS: ATORVASTATIN 20 MG TAB PO SCH (09:25)
[2022-06-11] MEDS: GABAPENTIN 300 MG CAP PO SCH ×3 (09:25→21:57)
[2022-06-11] MEDS: HYDROMORPHONE 2MG/ML 2 MG/ML ML IV PRN ×2 (10:47→21:57)
[2022-06-11] MEDS: ONDANSETRON HCL INJ 2MG/ML 2ML 2 MG/ML VIAL IV PRN (21:57)
[2022-06-11] MEDS: QUETIAPINE FUMARATE 25 MG TAB PO SCH (21:57)
[2022-06-12] VITALS (7 sets, daily range): BP systolic 125–150; BP diastolic 54–67
[2022-06-12] MEDS: METRONIDAZOLE 500MG/NS 100ML 100 ML IV SCH ×4 (02:30→20:40)
[2022-06-12] MEDS: ATORVASTATIN 20 MG TAB PO SCH ×2 (10:00→10:04)
[2022-06-12] MEDS: CLOPIDOGREL BISULFATE 75 MG TAB PO SCH (10:00)
[2022-06-12] MEDS: GLIPIZIDE 5 MG TAB PO SCH ×2 (10:00→16:14)
[2022-06-12] MEDS: GABAPENTIN 300 MG CAP PO SCH ×3 (10:00→20:41)
[2022-06-12] MEDS: ASPIRIN 81 MG CHEW TAB PO SCH (10:00)
[2022-06-12] MEDS: LOSARTAN POTASSIUM 100 MG TAB PO SCH (10:05)
[2022-06-12] MEDS: HYDROMORPHONE 2MG/ML 2 MG/ML ML IV PRN ×3 (10:16→23:30)
[2022-06-12] MEDS: QUETIAPINE FUMARATE 25 MG TAB PO SCH (20:42)
[2022-06-13] VITALS: BP 133/63
[2022-06-13 00:26] VITALS: BP 125/67
[2022-06-13] MEDS: METRONIDAZOLE 500MG/NS 100ML 100 ML IV SCH ×2 (02:50→09:26)
[2022-06-13 04:00] VITALS: BP 113/58
[2022-06-13 08:07] VITALS: BP 123/73
[2022-06-13] MEDS: HYDROMORPHONE 2MG/ML 2 MG/ML ML IV PRN (09:22)
[2022-06-13] MEDS: GABAPENTIN 300 MG CAP PO SCH (09:30)
[2022-06-13] MEDS: GLIPIZIDE 5 MG TAB PO SCH (09:30)
[2022-06-13] MEDS: LOSARTAN POTASSIUM 100 MG TAB PO SCH (09:31)
[2022-06-13] MEDS: ASPIRIN 81 MG CHEW TAB PO SCH (09:31)
[2022-06-13] MEDS: CLOPIDOGREL BISULFATE 75 MG TAB PO SCH (09:31)
[2022-06-13] MEDS ORDERED: METRONIDAZOLE 500 MG TAB PO SCH (14:00)
[2022-06-13] MEDS ORDERED: PANTOPRAZOLE SOD 40 MG TABEC PO SCH (21:00)
== END 2022-06-13 10:57 | disposition home or self-care (01) | DRG 392 ==
LOC: ER 09:44 → ERHOLD 13:15 → MED/SURG2 16:40
DX: K57.32 Diverticulitis of large intestine without perforation or abscess without bleeding (principal); E11.69 Type 2 diabetes mellitus with other specified complication; E78.5 Hyperlipidemia, unspecified; G89.29 Other chronic pain; M54.9 Dorsalgia, unspecified; Z86.73 Personal history of transient ischemic attack (TIA), and cerebral infarction without residual deficits; M19.90 Unspecified osteoarthritis, unspecified site; M81.0 Age-related osteoporosis without current pathological fracture; E11.40 Type 2 diabetes mellitus with diabetic neuropathy, unspecified; Z79.4 Long term (current) use of insulin; R13.10 Dysphagia, unspecified; J44.9 Chronic obstructive pulmonary disease, unspecified; K21.9 Gastro-esophageal reflux disease without esophagitis
CPT/HCPCS: 0223U; 36415; 74177; 80053; 81001; 82948; 83690; 85025; 87086; 87186; 94799; 99284; J2270; J2405; J2543; J2550; J7030; Q9963; Q9967

== ENCOUNTER → 2022-08-13 | Day surgery (SDC) | payer MEDICARE, BC ==
[2022-08-07 15:16] LABS: BASOPHILS % 0.5 % (0.0-1.0); EOSINOPHILS # (AUTO) 0.3 (0.0-0.4); EOSINOPHILS % 3.5 % (0.0-6.0); HEMATOCRIT 43.1 % (34.2-44.1); HEMOGLOBIN 12.7 g/dL (12.0-16.0); LYMPHOCYTES # (AUTO) 1.9 (1.0-3.2); LYMPHOCYTES % 24.7 % (18.0-39.1); MEAN CORPUSCULAR HEMOGLOBIN 28.8 pg (28-32); MEAN CORPUSCULAR HGB CONC 29.5 g/dL (31-35); MEAN CORPUSCULAR VOLUME 97.7 fL (81-99); MONOCYTES # (AUTO) 0.7 (0.2-0.8); MONOCYTES % 9.6 % (4.4-11.3); NEUTROPHILS # (AUTO) 4.8 (2.1-6.9); NEUTROPHILS % 61.6 % (38.7-80.0); PLATELET COUNT 249 x10e3/uL (140-360); RED BLOOD COUNT 4.41 x10e6/uL (3.6-5.1); RED CELL DISTRIBUTION WIDTH 13.7 % (11.7-14.4)
[~2022-08-13] MED LIST changes: +LIDOCAINE PATCH 5%; +LORTAB 10 MG-3473 ML PO; +MINOCYCLINE HCL50 MG PO; +POVIDONE IODINE 0.05% 0.05 % ML PO ONE; +PROPOFOL IV EMULSION 10 MG/ML 20 ML VIAL ONE; +PROPOFOL IV EMULSION 10 MG/ML 50 ML VIAL IV ONE; +QUETIAPINE FUMA25 MG PO
[2022-08-13 13:26] VITALS: BP 147/67
== END | disposition home or self-care (01) ==
LOC: OR 10:18
PROVIDERS: ATTEND Internal Medicine Gastroenterology
DX: D13.2 Benign neoplasm of duodenum (principal); K29.70 Gastritis, unspecified, without bleeding; K44.9 Diaphragmatic hernia without obstruction or gangrene; K57.90 Diverticulosis of intestine, part unspecified, without perforation or abscess without bleeding; G47.33 Obstructive sleep apnea (adult) (pediatric); C67.9 Malignant neoplasm of bladder, unspecified; J44.9 Chronic obstructive pulmonary disease, unspecified; I25.10 Atherosclerotic heart disease of native coronary artery without angina pectoris; E11.9 Type 2 diabetes mellitus without complications; R51.9 Headache, unspecified; I67.1 Cerebral aneurysm, nonruptured; I10 Essential (primary) hypertension; E78.5 Hyperlipidemia, unspecified; F32.A Depression, unspecified; M19.90 Unspecified osteoarthritis, unspecified site; Z88.6 Allergy status to analgesic agent; Z88.1 Allergy status to other antibiotic agents; Z88.8 Allergy status to other drugs, medicaments and biological substances; Z01.810 Encounter for preprocedural cardiovascular examination; Z01.812 Encounter for preprocedural laboratory examination; Z79.82 Long term (current) use of aspirin; Z79.02 Long term (current) use of antithrombotics/antiplatelets; Z79.84 Long term (current) use of oral hypoglycemic drugs; Z95.5 Presence of coronary angioplasty implant and graft
CPT/HCPCS: 36415 ×2; 43251; 82948; 85025; 88305; 93005; C9113; J2704 ×2; 43239; 88304

== ENCOUNTER → 2022-11-06 | Outpatient (CLI) | payer MEDICARE, BC ==
[~2022-11-06] MED LIST changes: -POVIDONE IODINE 0.05% 0.05 % ML PO ONE; -PROPOFOL IV EMULSION 10 MG/ML 20 ML VIAL ONE; -PROPOFOL IV EMULSION 10 MG/ML 50 ML VIAL IV ONE
== END ==
LOC: MAMMO 14:06
PROVIDERS: ATTEND Family Medicine
DX: N64.4 Mastodynia (principal); N63.12 Unspecified lump in the right breast, upper inner quadrant
CPT/HCPCS: 77066

== ENCOUNTER → 2022-12-12 | Outpatient (CLI) | payer MEDICARE, BC | LOC: DX 10:01 | PROVIDERS: ATTEND Family Medicine | DX: M81.0 Age-related osteoporosis without current pathological fracture (principal) | CPT/HCPCS: 77080 ==

== ENCOUNTER 2024-01-30 12:35 | Inpatient (IN) | payer MEDICARE, BC ==
[~2024-01-30] VITALS: Ht 157.5 cm; Wt 54.4 kg
[2024-01-30] VITALS (8 sets, daily range): BP systolic 112–125; BP diastolic 44–46; PULSE 74–93; RESP 16–21; TEMP 98.2–98.5; O2SAT 96–100
[2024-01-30 13:29] LABS: BASOPHILS # (AUTO) 0.1 (0.0-0.1); BASOPHILS % 0.8 % (0.0-1.0); EOSINOPHILS # (AUTO) 0.4 (0.0-0.4); HEMATOCRIT 23.8 % (34.2-44.1); LYMPHOCYTES # (AUTO) 1.3 (1.0-3.2); LYMPHOCYTES % 14.2 % (18.0-39.1); MEAN CORPUSCULAR HGB CONC 24.8 g/dL (31-35); MEAN CORPUSCULAR VOLUME 64.7 fL (81-99); MONOCYTES # (AUTO) 0.7 (0.2-0.8); NEUTROPHILS # (AUTO) 6.6 (2.1-6.9); NEUTROPHILS % 72.7 % (38.7-80.0); PLATELET COUNT 362 x10e3/uL (140-360); RED BLOOD COUNT 3.68 x10e6/uL (3.6-5.1); RED CELL DISTRIBUTION WIDTH 21.3 % (11.7-14.4); WHITE BLOOD COUNT 9.14 x10e3/uL (4.8-10.8)
[2024-01-30 13:33] LABS: HEMOGLOBIN 5.9 g/dL (12.0-16.0)
[2024-01-30 13:50] LABS: ALBUMIN 3.7 g/dL (3.5-5.0); ALBUMIN/GLOBULIN RATIO 1.2 (0.8-2.0); ANION GAP 15.6 mmol/L (8-16); BILIRUBIN,TOTAL 0.3 mg/dL (0.2-1.2); CALCIUM 8.2 mg/dL (8.4-10.2); CREATININE, SERUM 0.72 mg/dL (0.57-1.11); POTASSIUM 4.6 mmol/L (3.5-5.1); TOTAL PROTEIN 6.9 g/dL (6.5-8.1)
[2024-01-30 15:48] LABS: FERRITIN 5.1 ng/mL (4.63-204.00)
[2024-01-30] MEDS: SODIUM CHLORIDE 0.9% 250ML 250 ML IV ONE (16:09)
[2024-01-30] MEDS ORDERED: ACETAMINOPHEN 325 MG TAB PO PRN (18:00)
[2024-01-30] MEDS ORDERED: ONDANSETRON HCL INJ 2MG/ML 2ML 2 MG/ML VIAL IV PRN (18:00)
[2024-01-30] MEDS ORDERED: BISACODYL 10 MG SUPP PR PRN (18:00)
[2024-01-31] VITALS (10 sets, daily range): BP systolic 113–141; BP diastolic 60–91; PULSE 73–96; RESP 15–21; TEMP 97.7–98.6; O2SAT 92–100
[2024-01-31] MEDS: FUROSEMIDE INJ 10 MG/ML 2 ML VIAL IV ONE (01:23)
[2024-01-31] MEDS: QUETIAPINE FUMARATE 25 MG TAB PO STA (01:23)
[2024-01-31] MEDS: ALBUTEROL SULF 0.083% NEB SOLN 3 ML NEB NEB STA (01:33)
[2024-01-31 05:44] LABS: BASOPHILS % 0.4 % (0.0-1.0); EOSINOPHILS # (AUTO) 0.3 (0.0-0.4); EOSINOPHILS % 2.8 % (0.0-6.0); HEMATOCRIT 32.2 % (34.2-44.1); LYMPHOCYTES # (AUTO) 1.5 (1.0-3.2); LYMPHOCYTES % 14.7 % (18.0-39.1); MEAN CORPUSCULAR HEMOGLOBIN 19.8 pg (28-32); MEAN CORPUSCULAR VOLUME 70.9 fL (81-99); MONOCYTES # (AUTO) 0.8 (0.2-0.8); MONOCYTES % 8.1 % (4.4-11.3); NEUTROPHILS # (AUTO) 7.5 (2.1-6.9); NEUTROPHILS % 73.7 % (38.7-80.0); PLATELET COUNT 322 x10e3/uL (140-360); RED BLOOD COUNT 4.54 x10e6/uL (3.6-5.1); RED CELL DISTRIBUTION WIDTH 25.4 % (11.7-14.4); WHITE BLOOD COUNT 10.18 x10e3/uL (4.8-10.8)
[2024-01-31 06:00] LABS: ANION GAP 15.3 mmol/L (8-16); CALCIUM 8.5 mg/dL (8.4-10.2); CREATININE, SERUM 0.69 mg/dL (0.57-1.11); POTASSIUM 4.3 mmol/L (3.5-5.1)
[2024-01-31] MEDS: SODIUM CHLORIDE 0.9% 250ML 250 ML ONE (07:17)
[2024-01-31] MEDS: DOCUSATE SODIUM 100 MG CAP PO SCH (09:30)
[2024-01-31] MEDS: IRON SUCROSE 100 MG in SODIUM CHLORIDE 0.9% 100 ML IV SCH (09:30)
[2024-01-31] MEDS: CYANOCOBALAMIN INJ 1,000 MCG/ML VIAL IM SCH (09:30)
[2024-01-31] MEDS: SENNOSIDES 8.6 MG TAB PO SCH (09:30)
[2024-01-31] MEDS ORDERED: DEXTROSE 50% SYRINGE 50 ML IV PRN (09:45)
[2024-01-31 10:17] LABS: HYPOCHROMASIA MARKED; PLATELET ESTIMATE ADEQUATE; PLATELET MORPHOLOGY COMMENT NORMAL
[2024-01-31] MEDS: NICOTINE 21 MG/EA PATCH TOP SCH (11:15)
[2024-01-31] MEDS: INSULIN LISPRO 100 UNIT/1 ML 3ML VIAL SQ SCH (13:11)
[2024-01-31 13:29] LABS: BILIRUBIN,URINE NEGATIVE (NEGATIVE); CLARITY,URINE CLEAR (CLEAR); COLOR,URINE YELLOW (YELLOW); GLUCOSE, URINE NEGATIVE (NEGATIVE); KETONES,URINE NEGATIVE (NEGATIVE); LEUKOCYTE ESTERASE ,URINE NEGATIVE (NEGATIVE); NITRITE,URINE NEGATIVE (NEGATIVE); PH,URINE 6.5 (5 - 7); PROTEIN,URINE DIPSTICK NEGATIVE (NEGATIVE); URINE UROBILINOGEN 0.2 mg/dL (0.2 - 1)
[2024-01-31 13:37] LABS: HEMATOCRIT 33.1 % (34.2-44.1); HEMOGLOBIN 9.2 g/dL (12.0-16.0)
[2024-01-31 13:48] LABS: BACTERIA,URINE RARE /HPF; EPITHELIAL CELLS,URINE MANY /LPF; MUCUS,URINE MANY (RARE); RBC,URINE 0-5 /HPF (0-5); WBC,URINE (MAN) 0-5 /HPF (0-5)
[2024-01-31] MEDS: GABAPENTIN 300 MG CAP PO SCH (15:36)
[2024-01-31] MEDS: ALBUTEROL/IPRATROPIUM 3 ML NEB NEB PRN (15:57)
[2024-01-31] MEDS: GLIPIZIDE 5 MG TAB PO SCH (17:04)
[2024-01-31] MEDS: QUETIAPINE FUMARATE 25 MG TAB PO SCH (21:53)
[2024-01-31] MEDS: HYDROCODONE/APAP 5MG-325MG TAB PO PRN (21:53)
[2024-01-31] MEDS: BISACODYL 5 MG TAB EC PO ONE ×2 (23:25→23:29)
[2024-02-01 00:20] VITALS: BP 126/67; PULSE 86; RESP 20; TEMP 98.1; O2SAT 92
[2024-02-01] MEDS: BISACODYL 5 MG TAB EC PO ONE ×3 (01:06→02:18)
[2024-02-01 04:00] VITALS: BP 122/80; PULSE 107; RESP 22; TEMP 98; O2SAT 96
[2024-02-01] MEDS: CITRATE OF MAGNESIA 300ML BOTTLE PO ONE (05:08)
[2024-02-01 05:18] LABS: BASOPHILS # (AUTO) 0.1 (0.0-0.1); BASOPHILS % 0.6 % (0.0-1.0); EOSINOPHILS # (AUTO) 0.4 (0.0-0.4); EOSINOPHILS % 3.6 % (0.0-6.0); HEMATOCRIT 38.6 % (34.2-44.1); HEMOGLOBIN 10.4 g/dL (12.0-16.0); LYMPHOCYTES # (AUTO) 1.4 (1.0-3.2); LYMPHOCYTES % 12.8 % (18.0-39.1); MEAN CORPUSCULAR HEMOGLOBIN 19.5 pg (28-32); MEAN CORPUSCULAR HGB CONC 26.9 g/dL (31-35); MEAN CORPUSCULAR VOLUME 72.3 fL (81-99); MONOCYTES # (AUTO) 0.9 (0.2-0.8); MONOCYTES % 8.6 % (4.4-11.3); NEUTROPHILS # (AUTO) 8.1 (2.1-6.9); NEUTROPHILS % 74.1 % (38.7-80.0); PLATELET COUNT 410 x10e3/uL (140-360); RED BLOOD COUNT 5.34 x10e6/uL (3.6-5.1); RED CELL DISTRIBUTION WIDTH 26.5 % (11.7-14.4); WHITE BLOOD COUNT 10.85 x10e3/uL (4.8-10.8)
[2024-02-01 06:54] LABS: ALBUMIN 4.1 g/dL (3.5-5.0); ALBUMIN/GLOBULIN RATIO 1.3 (0.8-2.0); ANION GAP 18.9 mmol/L (8-16); BILIRUBIN,TOTAL 0.7 mg/dL (0.2-1.2); CALCIUM 9.2 mg/dL (8.4-10.2); CREATININE, SERUM 0.75 mg/dL (0.57-1.11); MAGNESIUM 2.3 MG/DL (1.3-2.1); POTASSIUM 3.9 mmol/L (3.5-5.1); TOTAL PROTEIN 7.3 g/dL (6.5-8.1)
[2024-02-01 07:41] VITALS: PULSE 85; RESP 17; O2SAT 92
[2024-02-01] MEDS: LOSARTAN POTASSIUM 100 MG TAB PO SCH (08:37)
[2024-02-01] MEDS: ATORVASTATIN 20 MG TAB PO SCH (08:38)
[2024-02-01 08:45] VITALS: BP 133/74; PULSE 85; RESP 17; TEMP 98; O2SAT 92
[2024-02-01 11:30] VITALS: BP 127/82; PULSE 100; RESP 16; TEMP 97.7; O2SAT 100
[2024-02-01 16:25] VITALS: BP 103/52; PULSE 107; RESP 16; TEMP 98.2; O2SAT 98
[2024-02-01] MEDS ORDERED: ONDANSETRON HCL 4 MG ORAL DISINTEGRATING TAB PO PRN (17:15)
[2024-02-01] MEDS ORDERED: FEROSUL325 MG PO (18:14)
[2024-02-01] MEDS ORDERED: PANTOPRAZOLE SOD 40 MG TABEC PO SCH (21:00)
== END 2024-02-01 19:00 | disposition home or self-care (01) | DRG 811 ==
LOC: ER 12:44 → ERHOLD 14:52 → MED/SURG2 15:31
PROVIDERS: ADMIT Internal Medicine; ATTEND Internal Medicine
PROC: 30233N1 Transfusion of Nonautologous Red Blood Cells into Peripheral Vein, Percutaneous Approach (ICD-10-PCS; principal; 2024-01-30)
DX: D50.9 Iron deficiency anemia, unspecified (principal); J96.01 Acute respiratory failure with hypoxia; J44.9 Chronic obstructive pulmonary disease, unspecified; Z87.891 Personal history of nicotine dependence; I10 Essential (primary) hypertension; K21.9 Gastro-esophageal reflux disease without esophagitis; K44.9 Diaphragmatic hernia without obstruction or gangrene; R13.10 Dysphagia, unspecified; K29.70 Gastritis, unspecified, without bleeding; E11.9 Type 2 diabetes mellitus without complications; Z79.84 Long term (current) use of oral hypoglycemic drugs; R00.0 Tachycardia, unspecified; M81.0 Age-related osteoporosis without current pathological fracture; M19.91 Primary osteoarthritis, unspecified site; Z11.52 Encounter for screening for COVID-19; Z85.51 Personal history of malignant neoplasm of bladder; Z86.018 Personal history of other benign neoplasm; Z86.79 Personal history of other diseases of the circulatory system; Z79.899 Other long term (current) drug therapy; Z79.82 Long term (current) use of aspirin; Z79.02 Long term (current) use of antithrombotics/antiplatelets
CPT/HCPCS: 36415; 71045; 80048; 80053; 81001; 82270; 82607; 82728; 82746; 82948; 83540; 83735; 84466; 84484; 85014; 85018; 85025; 85045; 86850; 86900; 86920; 93005; 94640; 94799; 96372; 99284; J1756; J1940; J2470; J3420; J7050; P9016; U0002

== ENCOUNTER → 2024-04-20 | Day surgery (SDC) | payer MEDICARE, BC ==
[2024-04-12 11:54] LABS: BASOPHILS % 0.5 % (0.0-1.0); EOSINOPHILS # (AUTO) 0.3 (0.0-0.4); EOSINOPHILS % 3.8 % (0.0-6.0); HEMATOCRIT 40.2 % (34.2-44.1); HEMOGLOBIN 12.2 g/dL (12.0-16.0); LYMPHOCYTES # (AUTO) 1.3 (1.0-3.2); LYMPHOCYTES % 15.7 % (18.0-39.1); MEAN CORPUSCULAR HEMOGLOBIN 27.9 pg (28-32); MEAN CORPUSCULAR HGB CONC 30.3 g/dL (31-35); MEAN CORPUSCULAR VOLUME 91.8 fL (81-99); MONOCYTES # (AUTO) 0.6 (0.2-0.8); MONOCYTES % 7.4 % (4.4-11.3); NEUTROPHILS # (AUTO) 6.1 (2.1-6.9); NEUTROPHILS % 72.2 % (38.7-80.0); PLATELET COUNT 239 x10e3/uL (140-360); RED BLOOD COUNT 4.38 x10e6/uL (3.6-5.1); WHITE BLOOD COUNT 8.48 x10e3/uL (4.8-10.8)
[~2024-04-20] MED LIST changes: +ALBUTEROL/IPRATROPIUM 3 ML NEB ONE; +FEROSUL325 MG PO; +IRON PO; +ONDANSETRON ODT8 MG PO; +PRECOSE50 MG PO; +PROPOFOL IV EMULSION 50 ML IV ONE
[2024-04-20] MEDS: LACTATED RINGER'S 1,000 ML ONE (11:44)
[2024-04-20 15:14] VITALS: TEMP 97.7
[2024-04-20 15:35] VITALS: BP 120/49; PULSE 77; RESP 18; O2SAT 100
== END | disposition home or self-care (01) ==
LOC: OR 11:20
PROVIDERS: ATTEND Internal Medicine Gastroenterology
DX: K22.2 Esophageal obstruction (principal); K62.1 Rectal polyp; K63.5 Polyp of colon; K29.50 Unspecified chronic gastritis without bleeding; K22.10 Ulcer of esophagus without bleeding; K56.609 Unspecified intestinal obstruction, unspecified as to partial versus complete obstruction; K44.9 Diaphragmatic hernia without obstruction or gangrene; D64.9 Anemia, unspecified; K57.30 Diverticulosis of large intestine without perforation or abscess without bleeding; K64.8 Other hemorrhoids; J44.9 Chronic obstructive pulmonary disease, unspecified; E11.9 Type 2 diabetes mellitus without complications; I10 Essential (primary) hypertension; I25.10 Atherosclerotic heart disease of native coronary artery without angina pectoris; E78.5 Hyperlipidemia, unspecified; Z88.6 Allergy status to analgesic agent; Z88.1 Allergy status to other antibiotic agents; Z01.812 Encounter for preprocedural laboratory examination; Z79.02 Long term (current) use of antithrombotics/antiplatelets; Z79.84 Long term (current) use of oral hypoglycemic drugs; Z79.899 Other long term (current) drug therapy; Z99.81 Dependence on supplemental oxygen; Z86.73 Personal history of transient ischemic attack (TIA), and cerebral infarction without residual deficits
CPT/HCPCS: 36415; 43239; 43450; 45338; 85025; 88305; 88342; J2470; J2704; J7121; 45378; 45385

== ENCOUNTER → 2024-05-18 | Outpatient (REF) | payer MEDICARE, BC ==
[~2024-05-18] MED LIST changes: -ALBUTEROL/IPRATROPIUM 3 ML NEB ONE; -PROPOFOL IV EMULSION 50 ML IV ONE
== END ==
LOC: DX 09:09
PROVIDERS: ATTEND Nurse Practitioner
DX: Z86.0100 Personal history of colon polyps, unspecified (principal)
CPT/HCPCS: 36415; 74018; 82948

== ENCOUNTER → 2024-07-01 | Outpatient (REF) | payer MEDICARE, BC | LOC: CT 15:04 | PROVIDERS: ATTEND Family Medicine | DX: R51.9 Headache, unspecified (principal) | CPT/HCPCS: 70450 ==